=== PATIENT | male | born 1960 | race Caucasian/White ===

== ENCOUNTER 2019-10-24 14:48 | Outpatient (CLI) | payer BC, SELFPAY ==
--- NOTE | 2019-10-24 15:00 | CT_ITS ---
WS: [id number] CT ABDOMEN PELVIS TECHNIQUE: Noncontrast CT of the abdomen and pelvis with coronal and sagittal reformatted images. CLINICAL INFORMATION: GROSS HEMATURIA COMPARISON: None. DLP: 1963.[address] scans at [facility] use at least one of these dose optimization techniques: automat ed exposure control; mA and/or kV adjustment per patient size (includes targeted exams where dose is matched to clinical indication); or iterative reconstruction. FINDINGS: Hepatomegaly. Noncontrast liver measures 22 cm in craniocaudal dimension. Normal gastroesophageal mabel ction. Multiple enlarged lymph nodes in the upper abdomen along the celiac axis and tila hepatis. La rgest lymph nodes measure approximately 2.5 CM. Largest lymph node at the pancreatic head measuring 3 .5 x 1.7 cm. Mild pancreatic atrophy. Fluid-filled hydropic gallbladder. No pericholecystic fluid. Ca lcified granulomas left lung base. Slight bibasilar atelectasis. Mild splenomegaly measuring 16 cm. Recommend correlation for portal venous hypertension and correlati on with liver function tests. Adrenal glands are normal. Bilateral renal calculi larger on the right. Right renal pelvic/UPJ calcul us measuring 9 mm. Additional nonobstructing right calyceal calculus measuring 9 mm. Mild dilatation of the right renal pelvis. Right ureter is decompressed. No significant right hydronephrosis. No dist al right obstructing calculi. Tiny nonobstructing left calyceal tip calculi. Left ureter is decompressed. Normal caliber abdominal aorta. Aortic calcification. Mild prostate enlargement with calcification. Diverticulosis with mild t hickening involving the sigmoid colon suspicious for mild diverticulitis. No evidence of drainable ab scess or fluid collection. Recommend correlation with symptoms of infection. Bladder appears unremark able. No pelvic lymphadenopathy. CT/CT kidney stone [id number] IMPRESSION: 1. Mild diffuse thickening of the sigmoid colon suspicious for mild or early d iverticulitis. Recommend correlation for infection. No drainable abscess. 2. Right renal pelvic calculus measuring 9 mm with mild dilatation of the righ t renal pelvis. No significant right hydronephrosis. Right distal ureter is dec ompressed. 3. Additional nonobstructing right calyceal tip calculus measuring 9 mm. 4. No obstructing renal or ureteral calculi left kidney. 5. Mild enlargement of the prostate with calcification. Bladder appears unrema rkable. 6. Hepatomegaly and splenomegaly described above with multiple enlarged lymph nodes in the upper abdomen along the celiac axis and tila hepatis. These are n onspecific and may be reactive however malignancy is not excluded. Largest lymp h nodes measure up to 3.5 CM. Recommend correlation with liver enzymes.
== END 2019-10-24 14:49 | disposition home or self-care (01) ==
PROVIDERS: Family Provider Nurse Practitioner; PCP Nurse Practitioner; Visit Provider Nurse Practitioner
DX: N20.0 Calculus of kidney (principal); R31.0 Gross hematuria; N40.0 Benign prostatic hyperplasia without lower urinary tract symptoms; R16.0 Hepatomegaly, not elsewhere classified; R16.1 Splenomegaly, not elsewhere classified
CPT/HCPCS: 74176

== ENCOUNTER → 2020-02-06 13:40 | Outpatient (BNVA) | payer BC, SELFPAY | PROVIDERS: Family Provider Nurse Practitioner; PCP Nurse Practitioner; Visit Provider Nurse Practitioner | DX: S30.861A Insect bite (nonvenomous) of abdominal wall, initial encounter (principal); W57.XXXA Bitten or stung by nonvenomous insect and other nonvenomous arthropods, initial encounter; E11.65 Type 2 diabetes mellitus with hyperglycemia; R50.9 Fever, unspecified | CPT/HCPCS: 80053; 80061; 83036; 85025 ==

== ENCOUNTER → 2020-03-01 09:52 | Outpatient (BNVA) | payer BC, SELFPAY | PROVIDERS: Family Provider Nurse Practitioner; PCP Nurse Practitioner; Visit Provider Nurse Practitioner | DX: E11.65 Type 2 diabetes mellitus with hyperglycemia (principal); Z86.19 Personal history of other infectious and parasitic diseases | CPT/HCPCS: 85025 ==

== ENCOUNTER → 2020-03-23 10:06 | Outpatient (BNVA) | payer BC, SELFPAY | PROVIDERS: Family Provider Nurse Practitioner; PCP Nurse Practitioner; Visit Provider Nurse Practitioner Family | DX: M25.50 Pain in unspecified joint (principal); R11.2 Nausea with vomiting, unspecified; R19.7 Diarrhea, unspecified; R51 Headache; Z91.89 Other specified personal risk factors, not elsewhere classified | CPT/HCPCS: 80053; 85025; 86000; 86617; 86757; 87506 ==

== ENCOUNTER → 2020-03-27 08:38 | Outpatient (BNVA) | payer BC, SELFPAY | PROVIDERS: Family Provider Nurse Practitioner; PCP Nurse Practitioner; Visit Provider Nurse Practitioner Family | DX: R19.7 Diarrhea, unspecified (principal); R11.2 Nausea with vomiting, unspecified; E11.65 Type 2 diabetes mellitus with hyperglycemia; Z91.89 Other specified personal risk factors, not elsewhere classified | CPT/HCPCS: 80053; 85025 ==

== ENCOUNTER → 2020-04-10 15:20 | Outpatient (BNVA) | payer BC, SELFPAY | PROVIDERS: Family Provider Nurse Practitioner; PCP Nurse Practitioner; Visit Provider Nurse Practitioner | DX: N20.0 Calculus of kidney (principal) | CPT/HCPCS: 80053; 81001; 81002 ==

== ENCOUNTER 2020-04-13 07:45 | Outpatient (CLI) | payer BC, SELFPAY ==
--- NOTE | 2020-04-13 08:30 | XRR_ITS ---
PROCEDURE INFORMATION: Exam: XR Abdomen, 1 View Exam date and time: 04/13/2020 8:14 AM Age: 59 years old Clinical indication: Condition or disease; Kidney or ureter condition; Calculus (stone) in kidney; Prior surgery; Surgery date: 6+ months; Surgery type: Hernia; Patient HX: Check up on kidney. CT last done 10/24/19 TECHNIQUE: Imaging protocol: XR of the abdomen. Views: Frontal supine view of the abdomen. 1 View. COMPARISON: CT kidney stone [id number] 10/24/2019 3:58 PM FINDINGS: Gastrointestinal tract: Bowel gas pattern is nonspecific. No mass effect upon the bowel loops. Distal rectal gas. Scattered loops of air filled small bowel none of which are dilated. Organs: 3 mm calcification projects over the mid aspect of the left kidney Bones/joints: No acute process within the osseous structures of the spine or pelvis. Radiopaque density adjacent to the transverse process of L3 on the right. Possible ureteric calcification. Correlate. Soft tissues: No appreciable calcifications Soft tissue prominence projects over the right lower abdomen. Correlate with CT. XR/XR KUB [id number] IMPRESSION: 1. Bowel gas pattern is nonspecific. 2. Radiopaque density adjacent to the transverse process of L3 on the right. Possible ureteric calcification. Correlate. Consider CT. 3. Soft tissue prominence projects over the right lower abdomen. Correlate with CT.
== END 2020-04-13 07:46 | disposition home or self-care (01) ==
LOC: RAD 07:50
PROVIDERS: Family Provider Nurse Practitioner; PCP Nurse Practitioner; Visit Provider Urology
DX: N20.0 Calculus of kidney (principal)
CPT/HCPCS: 74018; 80053; 81001; 87077; 87086; 87186

== ENCOUNTER 2020-04-18 08:17 | Outpatient (CLI) | payer BC, SELFPAY ==
--- NOTE | 2020-04-18 08:00 | CT_ITS ---
WS: [id number] CT ABDOMEN PELVIS TECHNIQUE: Noncontrast CT of the abdomen and pelvis with coronal and sagittal reformatted images. CLINICAL INFORMATION: Stone COMPARISON: CT October 24, 2019 DLP: 2258.[address] scans at [facility] use at least one of these dose optimization techniques: automat ed exposure control; mA and/or kV adjustment per patient size (includes targeted exams where dose is matched to clinical indication); or iterative reconstruction. FINDINGS:Persistent obstructing right UPJ calculus measuring 9 mm. Adjacent tiny satellite calculus. Right perirenal subcapsular low-attenuation collection suspicious for subcapsular phlegmon/abscess ve rsus less likely subacute hematoma. No high attenuation blood products. Surrounding inflammatory stra nding. Flattening of the right kidney. Right distal ureter appears decompressed. Nonobstructing tiny left renal calyceal tip calculi. No hydronephrosis in the left kidney. Right subcapsular fluid collec tion measures 10.1 x 13.6 cm. Hepatomegaly unchanged. Normal gastroesophageal junction. Multiple enlarged lymph nodes in the upper abdomen along the celiac axis and tila hepatis unchanged. Fluid-filled distended hydropic gallbladde r unchanged. No pericholecystic fluid. Normal caliber abdominal aorta. Aortic calcification. Mild prostate enlargement with calcification. D iverticulosis with mild thickening involving the sigmoid colon persistent and unchanged. No evidence of drainable abscess or fluid collection. Recommend correlation with symptoms of infection. Bladder a ppears unremarkable. No pelvic lymphadenopathy. Notified Artur Bradford MD at 04/18/2020 9:[address]/CT kidney stone [id number] IMPRESSION: 1. Persistent obstructing right UPJ calculus measuring 9 mm. Adjacent tiny sat ellite calculus. Right perirenal subcapsular low-attenuation collection suspici ous for subcapsular phlegmon/abscess or less likely subacute hematoma. Surround ing inflammatory stranding. Flattening of the right kidney. Right subcapsular f luid collection measures 10.1 x 13.6 cm. 2. Right distal ureter appears decompressed. 3. Nonobstructing tiny left renal calyceal tip calculi. No hydronephrosis in the left kidney. 4. Persistent mild diffuse thickening of the sigmoid colon. Recommend correlat ion for mild or early diverticulitis. No abscess. 5. Mild enlargement of the prostate with calcification. Bladder appears unrema rkable. 6. Hepatomegaly and splenomegaly
== END 2020-04-18 08:18 | disposition home or self-care (01) ==
LOC: CT 08:18
PROVIDERS: Family Provider Nurse Practitioner; PCP Nurse Practitioner; Visit Provider Urology
DX: N20.0 Calculus of kidney (principal); R16.2 Hepatomegaly with splenomegaly, not elsewhere classified; N40.0 Benign prostatic hyperplasia without lower urinary tract symptoms
CPT/HCPCS: 74176; J2250; J2704

== ENCOUNTER 2020-04-18 09:53 | Inpatient (IN) | payer BC, SELFPAY ==
[2020-04-18] VITALS (11 sets, daily range): BP systolic 101–137; BP diastolic 64–87; PULSE 88–101; RESP 14–20; TEMP 36.8–38.1; O2SAT 92–95; BMI 42.5
--- NOTE | 2020-04-18 | CT_ITS ---
WS: [id number] CT-GUIDED RIGHT SUBCAPSULAR RENAL DRAIN PLACEMENT CLINICAL INFORMATION: POSSIBLE ABSCESS OF RIGHT KIDNEY COMPARISON: None. DLP: [id number] TECHNIQUE: The procedure including risk, benefits, and complications were discussed with the patient who agreed to proceed. Using sterile technique, the patient was prepped and draped in the usual steri le fashion. Patient was positioned prone and CT images were obtained through the abdomen. The right k idney was selected. After 1% lidocaine using fluoroscopic guidance, a 17-gauge coaxial needle was adv anced into the right subcapsular renal collection. Approximately 10 cc of bloody purulent material was aspirated. Fluid was sent for cultures. Subsequen tly track was dilated with 9 Czech dilator sheath. 8 Czech pigtail catheter was advanced into the s ubcapsular collection using Seldinger technique. No immediate applications. CT/CT drain kidney [id number] IMPRESSION: 1. Uncomplicated 8 Czech pigtail catheter drain placement into the right subc apsular renal collection. 2. 10 cc of purulent bloody fluid was aspirated and sent for cultures.
--- NOTE | 2020-04-18 10:08 | W.ED.FEMALGU ---
Documented by User: PRACHI Cerda 04/18/20 10:39 HPI - Female Genitourinary General: Chief complaint: General Medical Stated complaint: DIRECT ADMIT Time Seen by Provider: 04/18/20 10:04 Source: patient Mode of arrival: ambulatory Limitations: no limitations History of Present Illness: HPI Narrative: Patient is a very nice 59-year-old male who presents to ED today at the request of Dr. Bradford for a right ureter stone and possible renal abscess. Patient tells me he has had colicky right sided abdominal pains for 2 to 3 weeks now. He tells me he initially passed a small stone causing him to seek evaluation from Dr. Bradford. CT scan ordered this morning shows a 9mm UPJ stone with a large right-sided fluid collection suspicious for renal abscess less likely hematoma. Patient does report fevers of 100-102 over the past few weeks. He states he is having some urinary frequency but no other urinary symptoms. He denies flank pain. Again complains of some intermittent right sided mid to lower abdominal pains. He reports a mild cough that he attributes to sinus drainage. He denies chest pains or difficulty breathing. MD elicited complaint: other (kidney stone) Associated symptoms: Reports abdominal pain; Deny headache(s), nausea or syncope Review of Systems Const: Reports: fever(s) (up to 102) and chills; Denies: body aches, change in appetite, change in weight, fatigue or malaise Card: Denies: chest pain, palpitations, irregular heart rhythm, edema, lightheadedness, syncope or pre-syncope Resp: Reports: productive cough and chest congestion; Denies: dyspnea, non-productive cough or hemoptysis GI: Reports: abdominal pain; Denies: nausea, vomiting or diarrhea : Reports: urinary frequency; Denies: flank pain, urinary urgency, urinary hesitancy, genital pain, genital lesions, testicular mass or scrotal swelling Musc: Denies: neck pain or back pain Skin/Breast: Denies: rash Neuro: Denies: headache(s), numbness in extremities, weakness in extremities or sensory changes [facility] ED PFSH: Medical History (Updated 04/18/20 @ 12:13 by Sarah Kunz DO) Controlled diabetes mellitus with hyperglycemia, without long-term current use of insulin Diverticulosis Glaucoma H/O Clostridium difficile infection H/O nephrolithotomy with removal of calculi History of colon polyps History of [place] spotted fever Hypertriglyceridemia Internal hemorrhoids Surgical History H/O circumcision H/O inguinal hernia repair H/O lithotripsy Status post colonoscopy with polypectomy Family History Other Cancer Diabetes Denies family history of Anesthesia complication Bleeding disorder Social History Smoking and tobacco status: never smoked Second hand smoke exposure: No Smoking risk assessment/counseling performed?: No Alcohol intake: never Desire information about alcohol rehabilitation?: No Counseling given: No Desire information about substance/drug rehabilitation?: No Counseling given: No Adopted: No Caregiver/support person: No Lives independently: Yes Household members: spouse Housing: House Marital status: service: No Current occupational status: employed History of recent travel: No Current gender identity: Male Physical Exam Const: COMMON NORMALS: no acute distress, patient oriented x3, no limitations and alert NUTRITIONAL APPEARANCE: obese morbidly obese ORIENTATION/CONSCIOUSNESS: Yes oriented to person, Yes oriented to place and Yes oriented to time Resp: COMMON NORMALS: normal respiratory effort and clear to auscultation bilaterally AUSCULTATION: clear to auscultation bilaterally Cardio: COMMON NORMALS: regular rate and regular rhythm RATE: regular rate RHYTHM: regular rhythm GI: COMMON NORMALS: Normal to inspection, nondistended, normoactive bowel sounds present, Soft to palpation, No hepatosplenomegaly present and no masses PALPATION: Yes Soft to palpation, Yes Tenderness to palpation present (GI) (mild R middle/lower abdominal pain) and Yes No hepatosplenomegaly present : COMMON NORMALS: Yes no CVA tenderness BLADDER/KIDNEY EXAM: Yes no CVA tenderness Back/Pelvis: COMMON NORMALS: no CVA tenderness Extremity: COMMON NORMALS: normal to inspection Neuro: TIMBO COMA SCALE: document GCS findings Timbo coma scale eye opening: Spontaneous Timbo coma scale verbal response: Orientated Timbo coma scale motor response: Obey commands Timbo coma scale total score: 15 COMMON NORMALS: patient oriented x3, moves all extremities, no focal motor deficits and gait normal SENSORIUM/ORIENTATION: Yes alert, Yes oriented to person, Yes oriented to place and Yes oriented to time Skin: COMMON NORMALS: no rashes or lesions noted GENERAL SKIN EXAM: no rashes or lesions noted Course Vital Signs: Vital signs: Vital Signs Temperature 99.1 F 04/18/20 10:09 Pulse Rate 92 04/18/20 16:28 Respiratory Rate 17 04/18/20 16:28 Blood Pressure 118/85 04/18/20 13:11 Pulse Oximetry 93 04/18/20 16:28 MDM - Female MDM Narrative: Medical decision making narrative: Patient was initially seen and evaluated by myself. Labs have been ordered. Dr. Rodrigues will assume care of patient as he will be a direct admit per Dr. Bradford. Lab Data: Labs: Lab Results 04/18/20 04/18/20 04/18/20 Range/Units 10:20 10:28 10:30 WBC 15.2 H (4.0-10.0) 10^3/ uL RBC 4.81 (4.1-5.3) 10^6/u L Hgb 14.6 (11.7-16.6) g/dL Hct 45.5 (42.0-52.0) % MCV 94.6 H (80-94) fL MCH 30.4 (28.0-34.0) pg MCHC 32.1 (30.0-36.0) g/dL RDW 13.2 (12.1-15.1) % Plt Count 350 (130-400) 10^3/c mm MPV 10.2 (7.4-10.4) fL Neut % (Auto) 75.5 % Lymph % (Auto) 12.9 % [place] % (Auto) 9.9 % Eos % (Auto) 0.3 % Baso % (Auto) 0.5 % Neut # (Auto) 11.5 H (1.8-7.7) 10^3/u L Lymph # (Auto) 2.0 (0.8-4.8) 10^3/u L [place] # (Auto) 1.5 H (0.2-0.9) 10^3/u L Eos # (Auto) 0.1 (0.0-0.8) 10^3/u L Baso # (Auto) 0.1 (0.0-0.1) 10^3/u L Nucleated RBC % (a uto) 0 % Nucleated RBCs # 0.0 /100WBC Sodium (136-145) mmol/L Potassium (3.5-5.1) mmol/L Chloride (98-107) mmol/L Carbon Dioxide (22-29) mmol/L Anion Gap (5-19) BUN (6-20) mg/dL Creatinine (0.7-1.2) mg/dL GFR Calculation (90-130) mL/min Glucose (65-115) mg/dL Calculated Osmolal ity (285-295) mOsm/k g Lactate (0.5-2.2) mmol/L Calcium (8.5-10.5) mg/dL Total Bilirubin (0.15-1.2) mg/dL AST (0-40) U/L ALT (0-41) U/L Alkaline Phosphata se (40-130) IU/L Total Protein (6.6-8.7) g/dL Albumin (3.5-5.2) g/dL Globulin (1.3-4.6) g/dL Urine Color Cancelled [place] Urine Appearance Cancelled Clear Urine pH Cancelled 5.0 Ur Specific Gravit y Cancelled 1.015 Urine Protein Cancelled Trace Urine Glucose (UA) Cancelled Norm Urine Ketones Cancelled Negative Urine Blood Cancelled 2+ H Urine Nitrate Cancelled Negative Urine Bilirubin Cancelled Neg Prot Sulfosalicyli c Acd Cancelled Urine Urobilinogen Cancelled 1 H Ur Leukocyte Venita ase Cancelled 1+ H Urine RBC 0-4 H (0-2) /hpf Urine WBC 25-40 H (0-5) /hpf Ur Squamous Epith Cells 5-10 H (0-5) Amorphous Sediment Not Reportable Urine Bacteria 1+ H (NONE) Urine Mucus 1+ 04/18/20 04/18/20 Range/Units 10:30 10:30 WBC (4.0-10.0) 10^3/ uL RBC (4.1-5.3) 10^6/u L Hgb (11.7-16.6) g/dL Hct (42.0-52.0) % MCV (80-94) fL MCH (28.0-34.0) pg MCHC (30.0-36.0) g/dL RDW (12.1-15.1) % Plt Count (130-400) 10^3/c mm MPV (7.4-10.4) fL Neut % (Auto) % Lymph % (Auto) % [place] % (Auto) % Eos % (Auto) % Baso % (Auto) % Neut # (Auto) (1.8-7.7) 10^3/u L Lymph # (Auto) (0.8-4.8) 10^3/u L [place] # (Auto) (0.2-0.9) 10^3/u L Eos # (Auto) (0.0-0.8) 10^3/u L Baso # (Auto) (0.0-0.1) 10^3/u L Nucleated RBC % (a uto) % Nucleated RBCs # /100WBC Sodium 129 L (136-145) mmol/L Potassium 4.6 (3.5-5.1) mmol/L Chloride 94 L (98-107) mmol/L Carbon Dioxide 21 L (22-29) mmol/L Anion Gap 18.6 (5-19) BUN 22 H (6-20) mg/dL Creatinine 1.2 (0.7-1.2) mg/dL GFR Calculation 62.0 L (90-130) mL/min Glucose 149 H (65-115) mg/dL Calculated Osmolal ity 267 L (285-295) mOsm/k g Lactate 2.3 H (0.5-2.2) mmol/L Calcium 9.0 (8.5-10.5) mg/dL Total Bilirubin 1.3 H (0.15-1.2) mg/dL AST 28 (0-40) U/L ALT 12 (0-41) U/L Alkaline Phosphata se 118 (40-130) IU/L Total Protein 8.7 (6.6-8.7) g/dL Albumin 2.9 L (3.5-5.2) g/dL Globulin 5.8 H (1.3-4.6) g/dL Urine Color Urine Appearance Urine pH Ur Specific Gravit y Urine Protein Urine Glucose (UA) Urine Ketones Urine Blood Urine Nitrate Urine Bilirubin Prot Sulfosalicyli c Acd Urine Urobilinogen Ur Leukocyte Venita ase Urine RBC (0-2) /hpf Urine WBC (0-5) /hpf Ur Squamous Epith Cells (0-5) Amorphous Sediment Urine Bacteria (NONE) Urine Mucus Imaging Data: CT renal stone: Radiologist's impression: CT/CT kidney stone [id number] IMPRESSION: 1. Persistent obstructing right UPJ calculus measuring 9 mm. Adjacent tiny satellite calculus. Right perirenal subcapsular low-attenuation collection suspicious for subcapsular phlegmon/abscess or less likely subacute hematoma. Surrounding inflammatory stranding. Flattening of the right kidney. Right subcapsular fluid collection measures 10.1 x 13.6 cm. 2. Right distal ureter appears decompressed. 3. Nonobstructing tiny left renal calyceal tip calculi. No hydronephrosis in the left kidney. 4. Persistent mild diffuse thickening of the sigmoid colon. Recommend correlation for mild or early diverticulitis. No abscess. 5. Mild enlargement of the prostate with calcification. Bladder appears unremarkable. 6. Hepatomegaly and splenomegaly Discharge Plan Discharge Patient Disposition: Admitted As Inpatient Admit Provider: Sarah Kunz Clinical Impression: Obstruction of right ureteropelvic junction (UPJ), Renal abscess, right Condition: Stable Referrals: Zhen Sunshine, NOLANC [Primary Care Provider] - Discharge Date/Time: 04/18/20 13:20 Coding Level of Care Code ED Food Concession Manager for Chg Fwd Exam Comprehensive Documented by User: Humphrey Rodrigues DO 04/18/20 16:47 HPI - Female Genitourinary General: Chief complaint: General Medical Stated complaint: DIRECT ADMIT Time Seen by Provider: 04/18/20 10:04 History of Present Illness: HPI Narrative: Patient was sent over the emergency room as a direct admission for Dr. Bradford. He has a known renal abscess the concern was for last 3 to 4 weeks he had a fever and cough and sinus drainage. He has imaging regarding the abscess and the concern is whether or not he should be swabbed for COVID. He has been reporting fevers up to 101-2 for the last several weeks he has been following with Dr. Bradford has a known right ureteral stone they are concerned he has an abscess there is CT this morning showed very large stone with abscess formation. His biggest intermittent abdominal pains. He has not had a real productive cough no one else at home has been sick. Is not traveled anywhere had any known positive COVID exposures. Associated symptoms: Reports abdominal pain; Deny nausea Review of Systems Const: Reports: fever(s), chills and body aches; Denies: change in appetite, fatigue or malaise ENMT: Denies: throat pain, ear or mastoid pain, nasal discharge or nasal congestion Card: Denies: chest pain, edema, dyspnea on exertion or orthopnea Resp: Denies: dyspnea, productive cough or non-productive cough GI: Reports: abdominal pain; Denies: nausea, vomiting, hematemesis, coffee ground emesis, diarrhea, constipation, bloating, hematochezia or melena : Denies: flank pain, dysuria, urinary frequency or urinary urgency Skin/Breast: Denies: rash or pruritus PFSH ED PFSH: Medical History (Updated 04/18/20 @ 12:13 by Sarah Kunz DO) Controlled diabetes mellitus with hyperglycemia, without long-term current use of insulin Diverticulosis Glaucoma H/O Clostridium difficile infection H/O nephrolithotomy with removal of calculi History of colon polyps History of [place] spotted fever Hypertriglyceridemia Internal hemorrhoids Surgical History H/O circumcision H/O inguinal hernia repair H/O lithotripsy Status post colonoscopy with polypectomy Family History Other Cancer Diabetes Denies family history of Anesthesia complication Bleeding disorder Social History Smoking and tobacco status: never smoked Second hand smoke exposure: No Smoking risk assessment/counseling performed?: No Alcohol intake: never Desire information about alcohol rehabilitation?: No Counseling given: No Desire information about substance/drug rehabilitation?: No Counseling given: No Adopted: No Caregiver/support person: No Lives independently: Yes Household members: spouse Housing: House Marital status: service: No Current occupational status: employed History of recent travel: No Current gender identity: Male Physical Exam Const: COMMON NORMALS: no acute distress GENERAL APPEARANCE: cooperative and comfortable ORIENTATION/CONSCIOUSNESS: Yes awake, Yes oriented to person, Yes oriented to place and Yes oriented to time HENMT: COMMON NORMALS: normocephalic, atraumatic, hearing grossly normal bilaterally, external ears normal, EAC's normal, TM's normal bilaterally, Normal nasal mucous membranes and turbinates present, moist oral mucous membranes and oropharynx normal HEAD & SCALP: normocephalic and atraumatic NOSE: Normal nasal mucous membranes and turbinates present EXTERNAL EAR: Yes external ears normal EXTERNAL AUDITORY CANAL: EAC's normal TYMPANIC MEMBRANE: TM's normal bilaterally Eye: COMMON NORMALS: Equal, round and reactive pupils present, EOMs intact bilaterally, conjunctivae normal and no scleral icterus CONJUNCTIVA: Yes conjunctivae normal PUPIL: Yes Equal, round and reactive pupils present Neck/C-Spine: COMMON NORMALS: full ROM, no lymphadenopathy, supple and no JVD Lymph: LYMPHATIC: no lymphadenopathy noted and no lymphedema noted Resp: COMMON NORMALS: normal respiratory effort, No retractions, No use of accessory muscles and clear to auscultation bilaterally AUSCULTATION: clear to auscultation bilaterally Cardio: COMMON NORMALS: no JVD, regular rate, regular rhythm and No murmurs present (Cardio) RATE: regular rate RHYTHM: regular rhythm GI: COMMON NORMALS: Soft to palpation and No hepatosplenomegaly present AUSCULTATION: Yes normoactive bowel sounds PALPATION: Yes Soft to palpation, No Tenderness to palpation present (GI), No Guarding due to palpation present (GI) and Yes No hepatosplenomegaly present Extremity: COMMON NORMALS: normal to inspection, capillary refill normal, no clubbing, cyanosis or edema, no calf tenderness and no pedal edema Neuro: SENSORIUM/ORIENTATION: Yes oriented to person, Yes oriented to place and Yes oriented to time Skin: COMMON NORMALS: no rashes or lesions noted GENERAL SKIN EXAM: no rashes or lesions noted Course Vital Signs: Vital signs: Vital Signs Temperature 99.1 F 04/18/20 10:09 Pulse Rate 92 04/18/20 16:28 Respiratory Rate 17 04/18/20 16:28 Blood Pressure 118/85 04/18/20 13:11 Pulse Oximetry 93 04/18/20 16:28 MDM - Female MDM Narrative: Medical decision making narrative: Discussed with Dr. Kunz and Dr. Bradford will go ahead and admit Dr. Bradford to choose antibiotics. At this point Dr. Kunz and I have discussed that both of us feel the patient does not need to have COVID screening based on his history and exam. Lab Data: Labs: Lab Results 04/18/20 04/18/20 04/18/20 Range/Units 10:20 10:28 10:30 WBC 15.2 H (4.0-10.0) 10^3/ uL RBC 4.81 (4.1-5.3) 10^6/u L Hgb 14.6 (11.7-16.6) g/dL Hct 45.5 (42.0-52.0) % MCV 94.6 H (80-94) fL MCH 30.4 (28.0-34.0) pg MCHC 32.1 (30.0-36.0) g/dL RDW 13.2 (12.1-15.1) % Plt Count 350 (130-400) 10^3/c mm MPV 10.2 (7.4-10.4) fL Neut % (Auto) 75.5 % Lymph % (Auto) 12.9 % [place] % (Auto) 9.9 % Eos % (Auto) 0.3 % Baso % (Auto) 0.5 % Neut # (Auto) 11.5 H (1.8-7.7) 10^3/u L Lymph # (Auto) 2.0 (0.8-4.8) 10^3/u L [place] # (Auto) 1.5 H (0.2-0.9) 10^3/u L Eos # (Auto) 0.1 (0.0-0.8) 10^3/u L Baso # (Auto) 0.1 (0.0-0.1) 10^3/u L Nucleated RBC % (a uto) 0 % Nucleated RBCs # 0.0 /100WBC Sodium (136-145) mmol/L Potassium (3.5-5.1) mmol/L Chloride (98-107) mmol/L Carbon Dioxide (22-29) mmol/L Anion Gap (5-19) BUN (6-20) mg/dL Creatinine (0.7-1.2) mg/dL GFR Calculation (90-130) mL/min Glucose (65-115) mg/dL Calculated Osmolal ity (285-295) mOsm/k g Lactate (0.5-2.2) mmol/L Calcium (8.5-10.5) mg/dL Total Bilirubin (0.15-1.2) mg/dL AST (0-40) U/L ALT (0-41) U/L Alkaline Phosphata se (40-130) IU/L Total Protein (6.6-8.7) g/dL Albumin (3.5-5.2) g/dL Globulin (1.3-4.6) g/dL Urine Color Cancelled [place] Urine Appearance Cancelled Clear Urine pH Cancelled 5.0 Ur Specific Gravit y Cancelled 1.015 Urine Protein Cancelled Trace Urine Glucose (UA) Cancelled Norm Urine Ketones Cancelled Negative Urine Blood Cancelled 2+ H Urine Nitrate Cancelled Negative Urine Bilirubin Cancelled Neg Prot Sulfosalicyli c Acd Cancelled Urine Urobilinogen Cancelled 1 H Ur Leukocyte Venita ase Cancelled 1+ H Urine RBC 0-4 H (0-2) /hpf Urine WBC 25-40 H (0-5) /hpf Ur Squamous Epith Cells 5-10 H (0-5) Amorphous Sediment Not Reportable Urine Bacteria 1+ H (NONE) Urine Mucus 1+ 04/18/20 04/18/20 Range/Units 10:30 10:30 WBC (4.0-10.0) 10^3/ uL RBC (4.1-5.3) 10^6/u L Hgb (11.7-16.6) g/dL Hct (42.0-52.0) % MCV (80-94) fL MCH (28.0-34.0) pg MCHC (30.0-36.0) g/dL RDW (12.1-15.1) % Plt Count (130-400) 10^3/c mm MPV (7.4-10.4) fL Neut % (Auto) % Lymph % (Auto) % [place] % (Auto) % Eos % (Auto) % Baso % (Auto) % Neut # (Auto) (1.8-7.7) 10^3/u L Lymph # (Auto) (0.8-4.8) 10^3/u L [place] # (Auto) (0.2-0.9) 10^3/u L Eos # (Auto) (0.0-0.8) 10^3/u L Baso # (Auto) (0.0-0.1) 10^3/u L Nucleated RBC % (a uto) % Nucleated RBCs # /100WBC Sodium 129 L (136-145) mmol/L Potassium 4.6 (3.5-5.1) mmol/L Chloride 94 L (98-107) mmol/L Carbon Dioxide 21 L (22-29) mmol/L Anion Gap 18.6 (5-19) BUN 22 H (6-20) mg/dL Creatinine 1.2 (0.7-1.2) mg/dL GFR Calculation 62.0 L (90-130) mL/min Glucose 149 H (65-115) mg/dL Calculated Osmolal ity 267 L (285-295) mOsm/k g Lactate 2.3 H (0.5-2.2) mmol/L Calcium 9.0 (8.5-10.5) mg/dL Total Bilirubin 1.3 H (0.15-1.2) mg/dL AST 28 (0-40) U/L ALT 12 (0-41) U/L Alkaline Phosphata se 118 (40-130) IU/L Total Protein 8.7 (6.6-8.7) g/dL Albumin 2.9 L (3.5-5.2) g/dL Globulin 5.8 H (1.3-4.6) g/dL Urine Color Urine Appearance Urine pH Ur Specific Gravit y Urine Protein Urine Glucose (UA) Urine Ketones Urine Blood Urine Nitrate Urine Bilirubin Prot Sulfosalicyli c Acd Urine Urobilinogen Ur Leukocyte Venita ase Urine RBC (0-2) /hpf Urine WBC (0-5) /hpf Ur Squamous Epith Cells (0-5) Amorphous Sediment Urine Bacteria (NONE) Urine Mucus Discharge Plan Discharge Patient Disposition: Admitted As Inpatient Admit Provider: Sarah Kunz Clinical Impression: Obstruction of right ureteropelvic junction (UPJ), Renal abscess, right Condition: Stable Referrals: Zhen Sunshine, PLAN COORDINATOR-C [Primary Care Provider] - Discharge Date/Time: 04/18/20 13:20 Coding Level of Care Code ED Food Concession Manager for Chg Fwd Exam Comprehensive
--- NOTE | 2020-04-18 10:22 | XRR_ITS ---
PROCEDURE INFORMATION: Exam: XR Chest, 1 View Exam date and time: 04/18/2020 10:37 AM Age: 59 years old Clinical indication: Dyspnea/cough TECHNIQUE: Imaging protocol: XR of the chest Views: 1 view. COMPARISON: No relevant prior studies available. FINDINGS: Lungs: No lung consolidation or pulmonary edema. Pleural space: No pleural effusion or pneumothorax. Heart/Mediastinum: The cardiac silhouette is not enlarged. The mediastinal contours are normal. Vasculature: The thoracic aorta is tortuous. Bones/joints: No acute osseous abnormality. XR/XR chest 1V portable [id number] IMPRESSION: No acute abnormality.
[2020-04-18 10:39] LABS: Basophils # 0.1 10^3/uL (0.0-0.1); Basophils % 0.5 %; Eosinophils # 0.1 10^3/uL (0.0-0.8); Eosinophils % 0.3 %; Hematocrit 45.5 % (42.0-52.0); Hemoglobin 14.6 g/dL (11.7-16.6); Lymphocytes % 12.9 %; Mean Corpuscular HGB Conc 32.1 g/dL (30.0-36.0); Mean Corpuscular Hemoglobin 30.4 pg (28.0-34.0); Mean Corpuscular Volume 94.6 fL (80-94); Mean Platelet Volume 10.2 fL (7.4-10.4); Monocytes # 1.5 10^3/uL (0.2-0.9); Monocytes % 9.9 %; Neutrophils # 11.5 10^3/uL (1.8-7.7); Neutrophils % 75.5 %; Nucleated Red Blood Cells % 0 %; Platelet Count 350 10^3/cmm (130-400); Red Blood Count 4.81 10^6/uL (4.1-5.3); Red Cell Distribution Width 13.2 % (12.1-15.1); White Blood Count 15.2 10^3/uL (4.0-10.0)
[2020-04-18 10:52] LABS: Alanine Aminotransferase 12 U/L (0-41); Albumin Level 2.9 g/dL (3.5-5.2); Alkaline Phosphatase 118 IU/L (40-130); Anion Gap 18.6 (5-19); Aspartate Amino Transferase 28 U/L (0-40); Blood Urea Nitrogen 22 mg/dL (6-20); Carbon Dioxide 21 mmol/L (22-29); Chloride 94 mmol/L (98-107); Globulin 5.8 g/dL (1.3-4.6); Glucose 149 mg/dL (65-115); Osmolality Calculated 267 mOsm/kg (285-295); Potassium 4.6 mmol/L (3.5-5.1); Sodium 129 mmol/L (136-145); Total Bilirubin 1.3 mg/dL (0.15-1.2); Total Protein 8.7 g/dL (6.6-8.7)
[2020-04-18 10:53] LABS: Lactate (Lactic Acid level) 2.3 mmol/L (0.5-2.2)
[2020-04-18 11:18] LABS: Add Urine Culture? Yes; Add Urine Microscopic? YES; Bacteria Urine 1+; Bilirubin Urine Neg (NEGATIVE); Blood Urine 2+ (Negative); Glucose Urine UA Norm (Normal); Ketones Urine Negative (Negative); Leukocyte Esterase Urine 1+ (Negative); Mucus Urine 1+; Nitrate Urine Negative (Negative); Protein Urine Trace (Negative); RBC Urine 0-4 /hpf (0-2); Specific Gravity, Urine 1.015 (1.005-1.030); Urine Appearance Clear (CLEAR); Urine Color Orange (Yellow); Urobilinogen Urine 1 mg/dL (Negative); WBC Urine 25-40 /hpf (0-5)
--- NOTE | 2020-04-18 12:06 | PM.HP ---
Providers/Chief Complaint Admitting Physician: Sarah Kunz DO Primary Care Provider: GISELE Gupta Chief Complaint: DIRECT ADMIT History of Present Illness Olegario Ortiz is a 59 year old male with a past medical history of diabetes and history of nephrolithiasis as well as hypertension that presented to the emergency department from urology office due to concern for fever and concern for right perinephric fluid collection. Patient reports having been sick off and on for the past 4 weeks. He stated that he had a tick exposure at that time due to concern for tick fever he was prescribed doxycycline he completed the 10-day course and reported that he began to feel somewhat better. He reported that over the past 2 weeks he has began to gradually decline. Stated that 2 weeks ago on a Thursday he passed a kidney stone had some hematuria and dysuria at that time but that is since improved. He continues to have hematuria. Patient reports continued fevers daily of 101-102 every afternoon. He denies any exposure to anyone with COVID-19, denies any public exposures and wears a mask in public every day. He reports a chronic cough and chronic postnasal drainage that is been worse with fever, denies any shortness of breath, no myalgias. Patient was seen and evaluated in the emergency department and admitted to the hospital for further evaluation and treatment. Review of Systems Const: Reports: fever(s) and chills Eyes: Reports: change in vision (Chronic, due to detached retina) ENMT: Reports: other (Postnasal drainage); Denies: nasal congestion Card: Denies: chest pain, palpitations or edema Resp: Reports: other (Chronic nonproductive cough); Denies: dyspnea, productive cough or hemoptysis GI: Reports: nausea and vomiting; Denies: abdominal pain, diarrhea, constipation, hematochezia or melena : Reports: hematuria; Denies: dysuria Musc: Denies: extremity pain or muscle cramps Skin/Breast: Denies: rash or new lesions Neuro: Denies: headache(s) or dizziness Psych: Denies: anxiety or depression Endo: Denies: polyuria or hot flashes Nikos/Lymph: Denies: easy bruising or easy bleeding Medications/Allergies Home Medications Medication Instructions Recorded Confirmed Last Taken Type lactobacillus combination no.8 3 3,000 mmu cells PO DAILY 04/13/20 04/18/20 04/18/20 History billion cell capsule prednisolone acetate 0.12 % eye 1 drop OPHTHALMIC (EYE) DAILY 04/13/20 04/18/20 04/18/20 History drops,suspension dulaglutide [Trulicity] 1.5 mg SUBCUT Q7D 04/18/20 04/18/20 04/18/20 History lisinopril 10 mg PO DAILY 04/18/20 04/18/20 04/18/20 History olive leaf extract 250 mg PO DAILY 04/18/20 04/18/20 04/18/20 History Allergies Allergy/AdvReac Type Severity Reaction Status Date / Time metformin Allergy diarrhea Verified 04/18/20 10:10 PFSH Acute PFSH: Medical History (Updated 04/18/20 @ 12:13 by Sarah Kunz DO) Controlled diabetes mellitus with hyperglycemia, without long-term current use of insulin Diverticulosis Glaucoma H/O Clostridium difficile infection H/O nephrolithotomy with removal of calculi History of colon polyps History of [place] spotted fever Hypertriglyceridemia Internal hemorrhoids Surgical History H/O circumcision H/O inguinal hernia repair H/O lithotripsy Status post colonoscopy with polypectomy Family History Other Cancer Diabetes Denies family history of Anesthesia complication Bleeding disorder Social History Smoking and tobacco status: never smoked Second hand smoke exposure: No Smoking risk assessment/counseling performed?: No Alcohol intake: never Desire information about alcohol rehabilitation?: No Counseling given: No Desire information about substance/drug rehabilitation?: No Counseling given: No Adopted: No Caregiver/support person: No Lives independently: Yes Household members: spouse Housing: House Marital status: service: No Current occupational status: employed History of recent travel: No Current gender identity: Male Vitals/I&O/Wt Last Vital Signs Temp 99.1 F 04/18/20 10:09 Pulse 99 04/18/20 10:09 Resp 20 H 04/18/20 10:09 BP 127/86 04/18/20 10:09 Pulse Ox 94 04/18/20 10:31 Weight last 48 hrs Weight 158.757 kg Physical Exam Const: COMMON NORMALS: patient oriented x3 and alert GENERAL APPEARANCE: cooperative and ill appearing ORIENTATION/CONSCIOUSNESS: Yes awake, Yes oriented to person, Yes oriented to place and Yes oriented to time HENMT: COMMON NORMALS: normocephalic and atraumatic HEAD & SCALP: normocephalic and atraumatic Eye: COMMON NORMALS: Equal, round and reactive pupils present PUPIL: Yes Equal, round and reactive pupils present Neck/C-Spine: COMMON NORMALS: supple GENERAL: Yes normal visual inspection Resp: COMMON NORMALS: normal respiratory effort and clear to auscultation bilaterally EFFORT & INSPECTION: Yes able to speak in complete sentences AUSCULTATION: clear to auscultation bilaterally, no rhonchi and no wheezes Cardio: COMMON NORMALS: regular rhythm and No murmurs present (Cardio) RATE: tachycardic RHYTHM: regular rhythm GI: COMMON NORMALS: Soft to palpation and non-tender INSPECTION: No abdominal distension AUSCULTATION: Yes normoactive bowel sounds PALPATION: Yes Soft to palpation : COMMON NORMALS: Yes no CVA tenderness BLADDER/KIDNEY EXAM: Yes no CVA tenderness Back/Pelvis: COMMON NORMALS: no CVA tenderness Extremity: COMMON NORMALS: no calf tenderness NARRATIVE EXTREMITY EXAM: Chronic nonpitting edema in the lower extremities bilaterally, negative Homans sign bilaterally, chronic venous stasis in the lower extremities bilaterally Neuro: COMMON NORMALS: patient oriented x3, CN's II-XII intact bilaterally, moves all extremities and no focal motor deficits SENSORIUM/ORIENTATION: Yes alert, Yes oriented to person, Yes oriented to place and Yes oriented to time SPEECH: speech normal Psych: COMMON NORMALS: mental status grossly normal and cooperative Skin: COMMON NORMALS: no rashes or lesions noted GENERAL SKIN EXAM: no rashes or lesions noted Data : 04/18/20 10:30 04/18/20 10:30 Micro: Microbiology 04/18/20 10:25 Blood Culture - Preliminary Blood SPECIMEN COLLECTED 04/18/20 10:30 Blood Culture - Preliminary Blood SPECIMEN COLLECTED A&P Assessment and plan (1) Renal abscess, right: CT scan performed today showing right subcapsular fluid collection of 10 x 13 cm with obstructing right UPJ calculus measuring 9 mm Question of abscess versus hematoma Start broad spectrum antibiotics at this time with Vanc and Zosyn Urine culture and blood culture ordered and pending Dr. Bradford consulted, appreciate recommendations and assistance in patient's care. Status: Acute (2) Right ureteral calculus: Right UPJ calculus measuring 9 mm We will follow-up with recommendations from Dr. Bradford Status: Acute (3) Hypertriglyceridemia: Status: Chronic (4) Controlled diabetes mellitus with hyperglycemia, without long-term current use of insulin: Patient is on weekly Trulicity injection Placed on sliding scale insulin as needed Status: Chronic Additional A&P Information Chronic cough: Likely secondary to lisinopril and postnasal drainage, chest x-ray negative at this time, no exposure for COVID-19, fever believed to be secondary to #1 we will hold off on COVID testing at this time Hypertension: Holding lisinopril at this time due to soft blood pressures with concern for sepsis Sepsis secondary to concern for perinephric abscess on the right: Continue with broad-spectrum antibiotics, continue with IV fluids, blood cultures ordered and pending. Urine culture pending. Imaging with question of mild diverticulitis however patient has no diarrhea or abdominal pain, likely his nausea and vomiting is secondary to perinephric process, will keep n.p.o. at this time and continue close monitoring. DVT prophylaxis: SCDs, no pharmacologic prophylaxis due to concern for anticipated surgery Diet: NPO due to anticipated surgery CODE STATUS: Full code Attestations Medical Necessity Statement*: Patient requires hospitalization due to concern for sepsis with right perinephric lesion with concern for abscess versus hematoma. Expected stay greater than 2 midnights Coding Level of Care Code Acute Amusement Or Recreation Card Checker for [facility] Fwd Exam Comprehensive Diagnoses Renal abscess, right N15.1 Right ureteral calculus N20.1 Hypertriglyceridemia E78.1 Controlled diabetes mellitus with hyperglycemia, without long-term current use of insulin E11.65
--- NOTE | 2020-04-18 13:38 | CT_ITS ---
WS: [id number] CT ABDOMEN PELVIS TECHNIQUE: Contrast-enhanced CT of the abdomen and pelvis with coronal and sagittal reformatted image s. CLINICAL INFORMATION: Renal mass, suspicious for possible abscess COMPARISON: Noncontrast CT April 18, 2020 DLP: 4221.[address] scans at [facility] use at least one of these dose optimization techniques: automat ed exposure control; mA and/or kV adjustment per patient size (includes targeted exams where dose is matched to clinical indication); or iterative reconstruction. FINDINGS: Again seen is the large low-attenuation right subcapsular renal fluid collection. This demonstrates p eripheral enhancement with mild surrounding inflammatory stranding. No significant internal enhanceme nt. No associated air or increased attenuation blood products. Persistent obstructing calculi at the right UPJ as previously described. Kidney is compressed mediall y unchanged from earlier today. Normal renal parenchymal enhancement. Although no excretion on the de layed imaging. Normal left renal parenchymal enhancement. Normal left ureteral excretion. Hepatomegaly with diffuse fatty infiltration of the liver. Hydropic gallbladder is unchanged. Splenomegaly. No other changes fr om earlier today. CT/CT abdomen pelvis w con* [id number] IMPRESSION: 1. Again seen is the low-attenuation right subcapsular fluid collection with p eripheral enhancement. Differential considerations are unchanged and include moody bcapsular abscess or hematoma. This is unchanged in size measuring 10.1 x 13.6 cm 2. Normal right renal parenchymal enhancement with compression of the right ki dney. No significant excretion on the delayed imaging. 3. Normal left renal excretion. 4. Hepatomegaly with diffuse fatty infiltration. 5. Otherwise no changes from earlier today.
--- NOTE | 2020-04-18 14:32 | P.ANESASSM_ITS ---
Pre-Anesthetic Assessment Pre-Anesthetic Assessment: Height/Weight: Height 1.93 m Weight 158.757 kg Temp Pulse Resp BP Pulse Ox 99.1 F 101 H 20 H 118/85 94 04/18/20 10:09 04/18/20 13:11 04/18/20 10:09 04/18/20 13:11 04/18/20 13:11 Preop Diagnosis: Kidney abscess Proposed Procedure: CT-Guided kidney drain Familial anesthetic complications: Sleeppy after anesthesia Was Beta Grisel taken within 24 hours: N/A Last intake: NPO > 8 hrs Social: Social History: No alcohol and No tobacco Exam: Pre-Anes Outpt Exam: alert, oriented x 3, clear to auscultation bilaterally and regular rate & rhythm Airway: Cervical ROM: WNL MP: 3 Dentition: Full Pulmonary: Comments: denies LURDES CV/HEM: CV/HEM: HTN Metabolic: Metabolic: DM and Morbid obesity Anesthetic Plan: ASA status: 2E Anesthesia: MAC Risk of > 500 ml blood loss (7ml/kg in children): No PFSH Anesthesia PFSH: Medical History (Updated 04/18/20 @ 12:13 by Sarah Kunz DO) Controlled diabetes mellitus with hyperglycemia, without long-term current use of insulin Diverticulosis Glaucoma H/O Clostridium difficile infection H/O nephrolithotomy with removal of calculi History of colon polyps History of [place] spotted fever Hypertriglyceridemia Internal hemorrhoids Surgical History H/O circumcision H/O inguinal hernia repair H/O lithotripsy Status post colonoscopy with polypectomy Family History Other Cancer Diabetes Denies family history of Anesthesia complication Bleeding disorder Social History Smoking and tobacco status: never smoked Second hand smoke exposure: No Smoking risk assessment/counseling performed?: No Alcohol intake: never Desire information about alcohol rehabilitation?: No Counseling given: No Desire information about substance/drug rehabilitation?: No Counseling given: No Adopted: No Caregiver/support person: No Lives independently: Yes Household members: spouse Housing: House Marital status: service: No Current occupational status: employed History of recent travel: No Current gender identity: Male Data Anesthesia CBC & Chem 7: 04/18/20 10:30 04/18/20 10:30 Other Labs: Laboratory Results - last 48 hr 04/18/20 04/18/20 04/18/20 10:20 10:28 10:30 WBC 15.2 H RBC 4.81 Hgb 14.6 Hct 45.5 MCV 94.6 H MCH 30.4 MCHC 32.1 RDW 13.2 Plt Count 350 MPV 10.2 Neut % (Auto) 75.5 Lymph % (Auto) 12.9 Yell % (Auto) 9.9 Eos % (Auto) 0.3 Baso % (Auto) 0.5 Neut # (Auto) 11.5 H Lymph # (Auto) 2.0 Yell # (Auto) 1.5 H Eos # (Auto) 0.1 Baso # (Auto) 0.1 Nucleated RBC % (auto) 0 Nucleated RBCs # 0.0 Sodium Potassium Chloride Carbon Dioxide Anion Gap BUN Creatinine GFR Calculation Glucose Calculated Osmolality Lactate Calcium Total Bilirubin AST ALT Alkaline Phosphatase Total Protein Albumin Globulin Urine Color Cancelled [place] Urine Appearance Cancelled Clear Urine pH Cancelled 5.0 Ur Specific [place] Cancelled 1.015 Urine Protein Cancelled Trace Urine Glucose (UA) Cancelled Norm Urine Ketones Cancelled Negative Urine Blood Cancelled 2+ H Urine Nitrate Cancelled Negative Urine Bilirubin Cancelled Neg Prot Sulfosalicylic Acd Cancelled Urine Urobilinogen Cancelled 1 H Ur Leukocyte Esterase Cancelled 1+ H Urine RBC 0-4 H Urine WBC 25-40 H Ur Squamous Epith Cells 5-10 H Amorphous Sediment Not Reportable Urine Bacteria 1+ H Urine Mucus 1+ 04/18/20 04/18/20 10:30 10:30 WBC RBC Hgb Hct MCV MCH MCHC RDW Plt Count MPV Neut % (Auto) Lymph % (Auto) Yell % (Auto) Eos % (Auto) Baso % (Auto) Neut # (Auto) Lymph # (Auto) Yell # (Auto) Eos # (Auto) Baso # (Auto) Nucleated RBC % (auto) Nucleated RBCs # Sodium 129 L Potassium 4.6 Chloride 94 L Carbon Dioxide 21 L Anion Gap 18.6 BUN 22 H Creatinine 1.2 GFR Calculation 62.0 L Glucose 149 H Calculated Osmolality 267 L Lactate 2.3 H Calcium 9.0 Total Bilirubin 1.3 H AST 28 ALT 12 Alkaline Phosphatase 118 Total Protein 8.7 Albumin 2.9 L Globulin 5.8 H Urine Color Urine Appearance Urine pH Ur Specific [place] Urine Protein Urine Glucose (UA) Urine Ketones Urine Blood Urine Nitrate Urine Bilirubin Prot Sulfosalicylic Acd Urine Urobilinogen Ur Leukocyte Esterase Urine RBC Urine WBC Ur Squamous Epith Cells Amorphous Sediment Urine Bacteria Urine Mucus Micro: Microbiology 04/18/20 10:25 Blood Culture - Preliminary Blood SPECIMEN COLLECTED 04/18/20 10:30 Blood Culture - Preliminary Blood SPECIMEN COLLECTED Cardiac Studies: No Data to Display
[2020-04-18] MEDS: iohexol 300 mg/mL 100 mL Btl IV (14:46)
[2020-04-18 14:47] LABS: Basophils # 0.1 10^3/uL (0.0-0.1); Basophils % 0.5 %; Eosinophils % 0.3 %; Hematocrit 43.7 % (42.0-52.0); Hemoglobin 13.9 g/dL (11.7-16.6); Lymphocytes # 1.4 10^3/uL (0.8-4.8); Lymphocytes % 10.4 %; Mean Corpuscular HGB Conc 31.8 g/dL (30.0-36.0); Mean Corpuscular Hemoglobin 30.3 pg (28.0-34.0); Mean Corpuscular Volume 95.2 fL (80-94); Mean Platelet Volume 10.1 fL (7.4-10.4); Monocytes # 1.3 10^3/uL (0.2-0.9); Monocytes % 9.7 %; Neutrophils # 10.2 10^3/uL (1.8-7.7); Nucleated Red Blood Cells % 0 %; Platelet Count 309 10^3/cmm (130-400); Red Blood Count 4.59 10^6/uL (4.1-5.3); Red Cell Distribution Width 13.2 % (12.1-15.1); White Blood Count 13.1 10^3/uL (4.0-10.0)
[2020-04-18 14:55] LABS: INR 1.17 (0.8-1.2)
[2020-04-18 15:01] LABS: Alanine Aminotransferase 12 U/L (0-41); Albumin Level 2.6 g/dL (3.5-5.2); Alkaline Phosphatase 109 IU/L (40-130); Anion Gap 16.6 (5-19); Aspartate Amino Transferase 26 U/L (0-40); Blood Urea Nitrogen 22 mg/dL (6-20); Calcium 8.8 mg/dL (8.5-10.5); Carbon Dioxide 22 mmol/L (22-29); Chloride 94 mmol/L (98-107); Globulin 5.5 g/dL (1.3-4.6); Glomerular Filtration Rate 68.5 mL/min (90-130); Glucose 136 mg/dL (65-115); Osmolality Calculated 265 mOsm/kg (285-295); Potassium 4.6 mmol/L (3.5-5.1); Sodium 128 mmol/L (136-145); Total Bilirubin 1.2 mg/dL (0.15-1.2); Total Protein 8.1 g/dL (6.6-8.7)
[2020-04-18 15:02] LABS: Lactic Sepsis W/Reflex 1.9 mmol/L (0.5-2.2)
[2020-04-18] MEDS: sodium chloride 0.9% 1,000 ML 100 ML IV (16:28)
[2020-04-18 17:05] LABS: Glucose Point of Care 118 mg/dL (70-110)
[2020-04-18] MEDS: piperacillin-tazobactam 3.375 GM in sodium chloride 0.9% (plus) 50 ML IV (20:15)
[2020-04-18] MEDS: morphine 4 mg/mL SDV 1 mL 2 MG IVP (20:20)
--- NOTE | 2020-04-18 20:31 | PC.NURSE ---
Thick maroon colored output with foul smell.
[2020-04-18 20:52] LABS: Glucose Point of Care 124 mg/dL (70-110)
[2020-04-18] MEDS: sodium chloride 0.45% 1,000 ML 100 ML IV (23:01)
[2020-04-19] VITALS (21 sets, daily range): BP systolic 102–177; BP diastolic 57–103; PULSE 83–106; RESP 14–22; TEMP 36.7–37.5; O2SAT 90–98
--- NOTE | 2020-04-19 | SC_ITS ---
WS: [id number] INTRAOPERATIVE TECHNIQUE: 4 Spot fluoroscopic images for intraoperative purposes. FLUOROSCOPY TIME: 63.1 seconds CLINICAL INFORMATION: C-ARM CYSTOURETHROGRAM COMPARISON: None. FINDINGS: Intraoperative cystourethrogram. Deployment of right ureteral stent. Pigtail catheter partially visua lized. SC/C-arm FL for Urology IMPRESSION: Images obtained for intraoperative purposes.
--- NOTE | 2020-04-19 | SCC_ITS ---
Procedure Done: 1. Cystoscopy with urethral dilation 2. Right retrograde ureteropyelogram 3. Right ureteral stent placement (8 [place] by 30 cm double-pigtail without string) 63.1 seconds of fluoroscopic guidance, for a cumulative dose of 41.27 mGy, was provided to Dr. Bradford by the radiology department. C-arm images of the abdomen were saved for the patient's permanent record. [facility]
[2020-04-19] MEDS: morphine 4 mg/mL SDV 1 mL 2 MG IVP ×3 (00:18→19:21)
[2020-04-19] MEDS: piperacillin-tazobactam 3.375 GM in sodium chloride 0.9% (plus) 50 ML IV ×2 (04:16→19:23)
[2020-04-19 06:00] LABS: Basophils # 0.1 10^3/uL (0.0-0.1); Basophils % 0.6 %; Eosinophils # 0.1 10^3/uL (0.0-0.8); Eosinophils % 0.3 %; Hematocrit 42.4 % (42.0-52.0); Hemoglobin 13.3 g/dL (11.7-16.6); Lymphocytes % 13.3 %; Mean Corpuscular HGB Conc 31.4 g/dL (30.0-36.0); Mean Corpuscular Hemoglobin 30.4 pg (28.0-34.0); Mean Platelet Volume 10.7 fL (7.4-10.4); Monocytes # 1.8 10^3/uL (0.2-0.9); Monocytes % 11.8 %; Neutrophils % 72.5 %; Nucleated Red Blood Cells % 0 %; Platelet Count 327 10^3/cmm (130-400); Red Blood Count 4.37 10^6/uL (4.1-5.3); Red Cell Distribution Width 13.2 % (12.1-15.1); White Blood Count 15.2 10^3/uL (4.0-10.0)
--- NOTE | 2020-04-19 06:23 | PC.NURSE ---
Shift Summary Patient is AOx4. Vital Signs stable. Right renal drain had around 900mls out. Drainage was maroon in color, thick with a foul smell. Patients pain was controlled with IV pain medication. Will continue to monitor.
[2020-04-19 06:32] LABS: Anion Gap 16.7 (5-19); Blood Urea Nitrogen 23 mg/dL (6-20); Calcium 8.6 mg/dL (8.5-10.5); Carbon Dioxide 22 mmol/L (22-29); Chloride 99 mmol/L (98-107); Glomerular Filtration Rate 56.5 mL/min (90-130); Glucose 121 mg/dL (65-115); Osmolality Calculated 274 mOsm/kg (285-295); Potassium 4.7 mmol/L (3.5-5.1); Sodium 133 mmol/L (136-145)
[2020-04-19 06:38] LABS: Glucose Point of Care 127 mg/dL (70-110)
[2020-04-19] MEDS: lactobacillus 1 Tablet 1 TAB PO (07:20)
[2020-04-19] MEDS: prednisoLONE 1% Op Susp 5 mL Btl 1 DROP EYE-LEFT (07:20)
--- NOTE | 2020-04-19 08:53 | ANES.PREANE2 ---
Pre-Anesthetic Assessment Pre-Anesthetic Assessment: Height/Weight: Height 1.93 m Weight 159.721 kg Temp Pulse Resp BP Pulse Ox 98.8 F 96 17 132/87 96 04/19/20 08:00 04/19/20 08:00 04/19/20 08:00 04/19/20 08:00 04/19/20 08:00 Preop Diagnosis: Kidney abscess Proposed Procedure: Operation Date: 04/19/20 14:05 Proposed Procedures p Cystoscopy(Not Applicable) - Artur Bradford MD s Ureteral Stent Placement(Right) - Artur Bradford MD s Poss Flexible Ureteroscopy(Right) - Artur Bradford MD Familial anesthetic complications: sleepy after anesthesia Was Beta Grisel taken within 24 hours: N/A Social: Social History: No alcohol and No tobacco Airway: Cervical ROM: WNL MP: 3 Dentition: Full Pulmonary: Comments: denies wojciech CV/HEM: CV/HEM: HTN : Comments: kidney abscess Metabolic: Metabolic: DM and Morbid obesity Anesthetic Plan: ASA status: 3 Anesthesia: General Risk of > 500 ml blood loss (7ml/kg in children): No Meds/Allergies Current Medications: Current Medications Generic Name Dose Route Start Last Admin Trade Name Freq PRN Reason Stop Dose Admin Vancomycin HCl 2,0 00 mg/ 500 mls @ 250 mls /hr 04/18/20 14:15 04/19/20 01:38 Sodium Chloride IV 250 mls/hr Q12H FER Administration Protocol Piperacillin Sod/T azobactam 50 mls @ 12.5 mls /hr 04/18/20 16:30 04/19/20 04:16 Sod 3.375 gm/ So dium Chloride IV 12.5 mls/hr Q8H FER Administration Protocol Sodium Chloride 1,000 mls @ 100 m ls/hr 04/18/20 13:45 04/18/20 23:01 Sodium Chloride 0.45% IV 100 mls/hr .Q10H FER Administration Insulin Aspart 0 unit 04/18/20 21:00 04/18/20 20:51 Novolog SUBCUT Not Given BEDTIME FER Protocol Insulin Aspart 0 unit 04/18/20 18:00 04/19/20 07:19 Novolog SUBCUT Not Given TIDWM FER Protocol Lactobacillus Acid ophilus 1 tab 04/19/20 09:00 04/19/20 07:20 Floranex PO 1 tab DAILY FER Administration Morphine Sulfate 2 mg 04/18/20 13:34 04/19/20 07:19 Morphine IVP 2 mg Q4H PRN Administration SEVERE PAIN Prednisolone Aceta te 1 drop 04/19/20 09:00 04/19/20 07:20 Pred Forte EYE-LEFT 1 drop DAILY FER Administration PFSH Anesthesia PFSH: Medical History (Updated 04/18/20 @ 12:13 by Sarah Kunz DO) Controlled diabetes mellitus with hyperglycemia, without long-term current use of insulin Diverticulosis Glaucoma H/O Clostridium difficile infection H/O nephrolithotomy with removal of calculi History of colon polyps History of [place] spotted fever Hypertriglyceridemia Internal hemorrhoids Surgical History H/O circumcision H/O inguinal hernia repair H/O lithotripsy Status post colonoscopy with polypectomy Family History Other Cancer Diabetes Denies family history of Anesthesia complication Bleeding disorder Social History Smoking and tobacco status: never smoked Second hand smoke exposure: No Smoking risk assessment/counseling performed?: No Alcohol intake: never Desire information about alcohol rehabilitation?: No Counseling given: No Desire information about substance/drug rehabilitation?: No Counseling given: No Adopted: No Caregiver/support person: No Lives independently: Yes Household members: spouse Housing: House Marital status: service: No Current occupational status: employed History of recent travel: No Current gender identity: Male Data Anesthesia CBC & Chem 7: 04/19/20 05:04 04/19/20 05:04 Other Labs: Laboratory Results - last 48 hr 04/18/20 04/18/20 04/18/20 10:20 10:28 10:30 WBC 15.2 H RBC 4.81 Hgb 14.6 Hct 45.5 MCV 94.6 H MCH 30.4 MCHC 32.1 RDW 13.2 Plt Count 350 MPV 10.2 Neut % (Auto) 75.5 Lymph % (Auto) 12.9 [place] % (Auto) 9.9 Eos % (Auto) 0.3 Baso % (Auto) 0.5 Neut # (Auto) 11.5 H Lymph # (Auto) 2.0 [place] # (Auto) 1.5 H Eos # (Auto) 0.1 Baso # (Auto) 0.1 Nucleated RBC % (auto) 0 Nucleated RBCs # 0.0 PT INR Sodium Potassium Chloride Carbon Dioxide Anion Gap BUN Creatinine GFR Calculation Glucose POC Glucose Calculated Osmolality Lactic Acid Lactate Calcium Total Bilirubin AST ALT Alkaline Phosphatase Total Protein Albumin Globulin Urine Color Cancelled [place] Urine Appearance Cancelled Clear Urine pH Cancelled 5.0 Ur Specific [place] Cancelled 1.015 Urine Protein Cancelled Trace Urine Glucose (UA) Cancelled Norm Urine Ketones Cancelled Negative Urine Blood Cancelled 2+ H Urine Nitrate Cancelled Negative Urine Bilirubin Cancelled Neg Prot Sulfosalicylic Acd Cancelled Urine Urobilinogen Cancelled 1 H Ur Leukocyte Esterase Cancelled 1+ H Urine RBC 0-4 H Urine WBC 25-40 H Ur Squamous Epith Cells 5-10 H Amorphous Sediment Not Reportable Urine Bacteria 1+ H Urine Mucus 1+ 04/18/20 04/18/20 04/18/20 10:30 10:30 14:25 WBC RBC Hgb Hct MCV MCH MCHC RDW Plt Count MPV Neut % (Auto) Lymph % (Auto) [place] % (Auto) Eos % (Auto) Baso % (Auto) Neut # (Auto) Lymph # (Auto) [place] # (Auto) Eos # (Auto) Baso # (Auto) Nucleated RBC % (auto) Nucleated RBCs # PT INR Sodium 129 L 128 L Potassium 4.6 4.6 Chloride 94 L 94 L Carbon Dioxide 21 L 22 Anion Gap 18.6 16.6 BUN 22 H 22 H Creatinine 1.2 1.1 GFR Calculation 62.0 L 68.5 L Glucose 149 H 136 H POC Glucose Calculated Osmolality 267 L 265 L Lactic Acid Lactate 2.3 H Calcium 9.0 8.8 Total Bilirubin 1.3 H 1.2 AST 28 26 ALT 12 12 Alkaline Phosphatase 118 109 Total Protein 8.7 8.1 Albumin 2.9 L 2.6 L Globulin 5.8 H 5.5 H Urine Color Urine Appearance Urine pH Ur Specific [place] Urine Protein Urine Glucose (UA) Urine Ketones Urine Blood Urine Nitrate Urine Bilirubin Prot Sulfosalicylic Acd Urine Urobilinogen Ur Leukocyte Esterase Urine RBC Urine WBC Ur Squamous Epith Cells Amorphous Sediment Urine Bacteria Urine Mucus 04/18/20 04/18/20 04/18/20 14:25 14:25 14:25 WBC 13.1 H RBC 4.59 Hgb 13.9 Hct 43.7 MCV 95.2 H MCH 30.3 MCHC 31.8 RDW 13.2 Plt Count 309 MPV 10.1 Neut % (Auto) 78.0 Lymph % (Auto) 10.4 [place] % (Auto) 9.7 Eos % (Auto) 0.3 Baso % (Auto) 0.5 Neut # (Auto) 10.2 H Lymph # (Auto) 1.4 [place] # (Auto) 1.3 H Eos # (Auto) 0.0 Baso # (Auto) 0.1 Nucleated RBC % (auto) 0 Nucleated RBCs # 0.0 PT 15.30 H INR 1.17 Sodium Potassium Chloride Carbon Dioxide Anion Gap BUN Creatinine GFR Calculation Glucose POC Glucose Calculated Osmolality Lactic Acid 1.9 Lactate Calcium Total Bilirubin AST ALT Alkaline Phosphatase Total Protein Albumin Globulin Urine Color Urine Appearance Urine pH Ur Specific [place] Urine Protein Urine Glucose (UA) Urine Ketones Urine Blood Urine Nitrate Urine Bilirubin Prot Sulfosalicylic Acd Urine Urobilinogen Ur Leukocyte Esterase Urine RBC Urine WBC Ur Squamous Epith Cells Amorphous Sediment Urine Bacteria Urine Mucus 04/18/20 04/18/20 04/19/20 16:55 20:35 05:04 WBC 15.2 H RBC 4.37 Hgb 13.3 Hct 42.4 MCV 97.0 H MCH 30.4 MCHC 31.4 RDW 13.2 Plt Count 327 MPV 10.7 H Neut % (Auto) 72.5 Lymph % (Auto) 13.3 [place] % (Auto) 11.8 Eos % (Auto) 0.3 Baso % (Auto) 0.6 Neut # (Auto) 11.0 H Lymph # (Auto) 2.0 [place] # (Auto) 1.8 H Eos # (Auto) 0.1 Baso # (Auto) 0.1 Nucleated RBC % (auto) 0 Nucleated RBCs # 0.0 PT INR Sodium Potassium Chloride Carbon Dioxide Anion Gap BUN Creatinine GFR Calculation Glucose POC Glucose 118 124 Calculated Osmolality Lactic Acid Lactate Calcium Total Bilirubin AST ALT Alkaline Phosphatase Total Protein Albumin Globulin Urine Color Urine Appearance Urine pH Ur Specific [place] Urine Protein Urine Glucose (UA) Urine Ketones Urine Blood Urine Nitrate Urine Bilirubin Prot Sulfosalicylic Acd Urine Urobilinogen Ur Leukocyte Esterase Urine RBC Urine WBC Ur Squamous Epith Cells Amorphous Sediment Urine Bacteria Urine Mucus 04/19/20 04/19/20 05:04 06:23 WBC RBC Hgb Hct MCV MCH MCHC RDW Plt Count MPV Neut % (Auto) Lymph % (Auto) [place] % (Auto) Eos % (Auto) Baso % (Auto) Neut # (Auto) Lymph # (Auto) [place] # (Auto) Eos # (Auto) Baso # (Auto) Nucleated RBC % (auto) Nucleated RBCs # PT INR Sodium 133 L Potassium 4.7 Chloride 99 Carbon Dioxide 22 Anion Gap 16.7 BUN 23 H Creatinine 1.3 H GFR Calculation 56.5 L Glucose 121 H POC Glucose 127 Calculated Osmolality 274 L Lactic Acid Lactate Calcium 8.6 Total Bilirubin AST ALT Alkaline Phosphatase Total Protein Albumin Globulin Urine Color Urine Appearance Urine pH Ur Specific [place] Urine Protein Urine Glucose (UA) Urine Ketones Urine Blood Urine Nitrate Urine Bilirubin Prot Sulfosalicylic Acd Urine Urobilinogen Ur Leukocyte Esterase Urine RBC Urine WBC Ur Squamous Epith Cells Amorphous Sediment Urine Bacteria Urine Mucus Micro: Microbiology 04/18/20 10:25 Blood Culture - Preliminary Blood SPECIMEN COLLECTED 04/18/20 10:30 Blood Culture - Preliminary Blood SPECIMEN COLLECTED Cardiac Studies: No Data to Display
--- NOTE | 2020-04-19 10:52 | PC.CHAP ---
Pastoral Care Encounter/Spiritual Assessment Type of Contact [x] Declined adoption coordinator visit [] Patient/Family/Request visit [] Outpatient visit [] Follow-up visit [] Physician referral [] Code/Alert [] Routine visit [] Staff referral [] Actively dying [] Patient sleeping [] Family support [] [] Out of room [] Palliative care [] [] Receiving care in room [] Pre-surgical visit [] Trauma [] Long length of stay [] ICU visit [] Other: Relational/Emotional Strength [] Patient feels connected with others/family/visitors/staff [] Distress [] Loneliness/isolation [] Abandonment Spirituality of Patient [] Person of Kristy [] Attends Scientologist of their Kristy [] Believes in Prayer [] Reads Bible or Caodaism materials [] There are Spiritual issues to be addressed [place] Interventions [] Prayer [] Active listening [] Non-anxious presence [] Spiritual/emotional support [] Crisis/trauma care [] Spiritual counseling [] Bereavement support [] Provided bereavement packet [] Provided Bible/devotional materials [] Provided toy/stuffed animal, coloring book to patient or family member [] Provided Communion [] Anointing/[place] [] Salvation [] Completed spiritual assessment [] Other: Impact on Illness or Injury [] Angry [] Fearful [] Anxious [] Often cries [] Exhaustion [] Unable to work [] Unable to attend samaritan [] Unable to walk/stand [] Unable to read [] Unable to drive [] Unable to eat/drink [] Unable to sleep [] Unable to be with family [] Patient intubated [] Other: Summary Time spent with patient
--- NOTE | 2020-04-19 11:35 | PM.PN ---
Subjective Subjective: Interval history: Patient awake and sitting at the side of bed today. He reports that he has some pain occasionally in the right-sided drain but pain medication is helping alleviate his discomfort. He denies any chest pain or shortness of breath. Patient denies any nausea or vomiting. Vitals/I&O/Wt Last Vital Signs Temp 98.8 F 04/19/20 08:00 Pulse 96 04/19/20 08:00 Resp 17 04/19/20 08:00 BP 132/87 04/19/20 08:00 Pulse Ox 96 04/19/20 08:00 04/18/20 04/19/20 04/19/20 22:59 06:59 14:59 Intake Total 600 / 600 50 / 650 240 / 240 Output Total 895 / 895 270 / 1165 550 / 550 Balance -295 / -295 -220 / -515 -310 / -310 Weight last 48 hrs Weight 159.721 kg Weight 158.757 kg Physical Exam Const: COMMON NORMALS: patient oriented x3 and alert GENERAL APPEARANCE: cooperative ORIENTATION/CONSCIOUSNESS: Yes awake, Yes oriented to person, Yes oriented to place and Yes oriented to time HENMT: COMMON NORMALS: normocephalic and atraumatic HEAD & SCALP: normocephalic and atraumatic Eye: COMMON NORMALS: Equal, round and reactive pupils present PUPIL: Yes Equal, round and reactive pupils present Neck/C-Spine: COMMON NORMALS: supple GENERAL: Yes normal visual inspection Resp: COMMON NORMALS: normal respiratory effort and clear to auscultation bilaterally EFFORT & INSPECTION: Yes able to speak in complete sentences AUSCULTATION: clear to auscultation bilaterally, no rhonchi and no wheezes Cardio: COMMON NORMALS: regular rhythm and No murmurs present (Cardio) RATE: tachycardic RHYTHM: regular rhythm GI: COMMON NORMALS: Soft to palpation and non-tender INSPECTION: No abdominal distension AUSCULTATION: Yes normoactive bowel sounds PALPATION: Yes Soft to palpation : OTHER: Patient has a right-sided perinephric drain in place with bloody drainage Extremity: COMMON NORMALS: no calf tenderness NARRATIVE EXTREMITY EXAM: Chronic nonpitting edema in the lower extremities bilaterally, negative Homans sign bilaterally, chronic venous stasis in the lower extremities bilaterally Neuro: COMMON NORMALS: patient oriented x3, CN's II-XII intact bilaterally, moves all extremities and no focal motor deficits SENSORIUM/ORIENTATION: Yes alert, Yes oriented to person, Yes oriented to place and Yes oriented to time SPEECH: speech normal Psych: COMMON NORMALS: mental status grossly normal and cooperative Skin: COMMON NORMALS: no rashes or lesions noted GENERAL SKIN EXAM: no rashes or lesions noted Data : 04/19/20 05:04 04/19/20 05:04 Micro: Microbiology 04/18/20 10:28 Urine Culture - Preliminary Urine,Clean Catch 04/18/20 10:25 Blood Culture - Preliminary Blood NEGATIVE TO DATE 04/18/20 10:30 Blood Culture - Preliminary Blood NEGATIVE TO DATE A&P Assessment and plan (1) Renal abscess, right: CT scan performed on admission with finding of right subcapsular fluid collection of 10 x 13 cm with obstructing right UPJ calculus measuring [address] Bradford consulted, appreciate recommendations and assistance in patient's care. Patient underwent drain placement by CT guidance yesterday, 04/18/2020. Continued on broad-spectrum antibiotics Obtain culture from drain Patient to go to the OR for ureteral stent placement today Status: Acute (2) Right ureteral calculus: Right UPJ calculus measuring 9 mm Patient to go to the OR today for stent placement Status: Acute (3) Hypertriglyceridemia: Status: Chronic (4) Controlled diabetes mellitus with hyperglycemia, without long-term current use of insulin: Patient is on weekly Trulicity injection Placed on sliding scale insulin as needed Status: Chronic Additional A&P Information Chronic cough: Likely secondary to lisinopril and postnasal drainage Hypertension: Continue to hold lisinopril due to acute kidney injury secondary to above Sepsis secondary to concern for perinephric abscess on the right: Continue with broad-spectrum antibiotics, continue with IV fluids, cultures remain pending. Imaging with question of mild diverticulitis however patient has no diarrhea or abdominal pain, likely his nausea and vomiting is secondary to perinephric process, n.p.o. for anticipated surgery DVT prophylaxis: SCDs, no pharmacologic prophylaxis due to concern for anticipated surgery Diet: NPO due to anticipated surgery CODE STATUS: Full code Attestations Medical Necessity Statement*: Requires continued hospitalization due to acute kidney injury, concern for perinephric abscess and right UPJ stone Coding Level of Care Code Acute Manhole Stripper for [facility] Diagnoses Renal abscess, right N15.1 Right ureteral calculus N20.1 Hypertriglyceridemia E78.1 Controlled diabetes mellitus with hyperglycemia, without long-term current use of insulin E11.65
[2020-04-19 11:42] LABS: Glucose Point of Care 132 mg/dL (70-110)
--- NOTE | 2020-04-19 13:52 | PM.PN ---
Subjective Subjective: Interval history: Remained afebrile overnight. Having some right-sided flank pain. Some nausea as well. Otherwise hemodynamically stable without significant complaints. I reviewed with him the issues related now to the stone and the urinary tract infection have recommended a stent placement for further decompression. He reports that there was up to 3 bags full after drain placement that had to be emptied. My estimation that would represent the bulk of the fluid that was in the collection. I will discuss with Dr. Kidd the findings at time of CT scan. Reviewed the procedure of cystoscopy and stent placement. Informed consent was obtained to proceed with that this afternoon. Medications: Reviewed: Yes Vitals/I&O/Wt Last Vital Signs Temp 99.5 F 04/19/20 11:45 Pulse 94 04/19/20 13:19 Resp 18 04/19/20 13:19 BP 156/94 04/19/20 13:19 Pulse Ox 94 04/19/20 13:19 04/18/20 04/19/20 04/19/20 22:59 06:59 14:59 Intake Total 600 / 600 50 / 650 240 / 240 Output Total 895 / 895 270 / 1165 750 / 750 Balance -295 / -295 -220 / -515 -510 / -510 Weight last 48 hrs Weight 352 lb 2 oz Weight 350 lb Physical Exam Const: COMMON NORMALS: no acute distress, alert and well nourished GENERAL APPEARANCE: well kempt and well developed ORIENTATION/CONSCIOUSNESS: not confused HENMT: COMMON NORMALS: normocephalic and atraumatic HEAD & SCALP: normocephalic and atraumatic Resp: COMMON NORMALS: normal respiratory effort EFFORT & INSPECTION: No labored and No Actively coughing Extremity: COMMON NORMALS: no clubbing, cyanosis or edema Neuro: COMMON NORMALS: no focal motor deficits SENSORIUM/ORIENTATION: Yes alert Psych: COMMON NORMALS: mental status grossly normal APPEARANCE: Yes grossly normal and Yes well kempt ATTITUDE: Yes calm and Yes engaged Data : 04/19/20 05:04 04/19/20 05:04 Micro: Microbiology 04/18/20 16:00 Body Fluid Culture - Preliminary Other Source Gram Negative Rods 04/18/20 10:28 Urine Culture - Preliminary Urine,Clean Catch 04/18/20 10:25 Blood Culture - Preliminary Blood NEGATIVE TO DATE 07/01/20 10:30 Blood Culture - Preliminary Blood NEGATIVE TO DATE A&P Assessment and plan (1) Renal abscess, right: Status: Acute (2) Right ureteral calculus: Placed stent today. UTI plus ureteral calculus necessitates intervention to reduce risk of further infectious complications. Status: Acute (3) Enterococcus UTI: Status: Acute Attestations Medical Necessity Statement*: Still critically ill with UTI and recent abscess drainage with ureteral calculus. Coding Level of Care Code Acute Customer Service Sales Consultant for [facility] Diagnoses Renal abscess, right N15.1 Right ureteral calculus N20.1 Enterococcus UTI N39.0; B95.2
[2020-04-19] MEDS: iohexol 300 mg/mL 50 mL Btl (OR ONLY) XX (14:17)
--- NOTE | 2020-04-19 14:43 | P.OP_ITS ---
Operative Report Date of procedure: April 19, 2020 Pre-op Diagnosis: Obstructing ureteral calculus right with UTI Post-op Diagnosis: 1. Obstructing right ureteral calculus with UTI status post renal abscess drainage 2. Urethral stricture Procedure Done: 1. Cystoscopy with urethral dilation 2. Right retrograde ureteropyelogram 3. Right ureteral stent placement (8 [place] by 30 cm double-pigtail without string) Pathology: none sent Surgeon: Sanchez Anesthesia: General Estimated blood loss: Minimal Urine output: Not measured Complications: None Findings: 1. Unexpected urethral stricture dilated with Amplatz dilators 2. Retrograde pyelogram confirmed obstructing stone 3. 8 [place] by 30 cm double-pigtail stent passed without difficulty. Condition: stable Disposition: PACU Brief History: Mr. Ortiz is a very pleasant 59-year-old white male who was admitted to the hospital with evidence of a large right renal abscess and has undergone percutaneous drainage yesterday via CT guidance. He was known to have a large stone previously in the right lower pole that migrated to the right proximal ureter. It was unclear that the stone was causing significant hydronephrosis but he was found to have a urinary tract infection on culture and because of the concern about potential infection is possibly even being related to the renal abscess it was decided to go ahead and place a stent today. He has been hemodynamically stable since the abscess was drained. Procedure: After urgent evaluation examination and obtaining of informed consent he was taken to the operating suite on 04/19/2020 where general anesthesia was administered without difficulty after appropriate timeout was performed, SCDs confirmed to be functioning, therapeutic antibiotics administered and beta- ash protocol confirmed. Prepped and draped in usual sterile fashion in dorsolithotomy position pain careful attention to avoiding pressure points 21 [place] cystoscope with 30 degree lens was introduced into the urethral meatus and advanced into the bulbar urethra where a tight urethral stricture was identified. A guidewire was passed through the stricture and under fluoroscopic guidance the stricture was dilated sequentially with Amplatz dilators from 8 [place] to 20 [place]. The cystoscope was then advanced over the guidewire through the urethra through the urethral stricture into the bladder under videoscopy. No gross abnormality was identified although he did have a large prostate. An 8 [place] cone-tipped catheter was intubated into the right ureteral orifice for right retrograde ureteropyelogram demonstrating normal distal ureter, filling defect in the mid ureter consistent with a stone, proximal dilation beyond that point. Good drainage distal to the stone after removal of the catheter. The flexible tip guidewire was then passed up the right ureter bypassing the stone and curling the upper pole calyx. An 8 [place] by 30 cm double-pigtail stent was advanced over the guidewire through the cystoscope beyond the stone into appropriate position as confirmed via fluoroscopy and cystoscopy. There was significant drainage of cloudy urine through the distal aspect of the stent after removal of the wire. Because of the urethral dilation it was decided to leave a catheter in his bladder which will also help facilitate any upper urinary tract drainage. He remained hemodynamically stable throughout the procedure but did have a temperature of 38.5. Tolerated the procedure well without complications and was awakened in the operating room and returned to the care of in stable condition. We will maintain the Lane catheter for a day or 2 and then conduct voiding trial.
[2020-04-19 16:51] LABS: Glucose Point of Care 156 mg/dL (70-110)
[2020-04-19] MEDS: sodium chloride 0.45% 1,000 ML 100 ML IV (19:19)
[2020-04-19 21:52] LABS: Glucose Point of Care 125 mg/dL (70-110)
[2020-04-20] VITALS (8 sets, daily range): BP systolic 122–140; BP diastolic 72–94; PULSE 81–123; RESP 14–20; TEMP 37–37.3; O2SAT 91–95
[2020-04-20] MEDS: morphine 4 mg/mL SDV 1 mL 2 MG IVP ×2 (03:44→18:28)
[2020-04-20] MEDS: piperacillin-tazobactam 3.375 GM in sodium chloride 0.9% (plus) 50 ML IV ×3 (03:45→20:40)
--- NOTE | 2020-04-20 04:08 | PC.NURSE ---
Drainage is pink with more white/haque color then last night.
[2020-04-20 05:43] LABS: Basophils # 0.1 10^3/uL (0.0-0.1); Basophils % 0.5 %; Eosinophils # 0.1 10^3/uL (0.0-0.8); Eosinophils % 0.5 %; Hematocrit 41.3 % (42.0-52.0); Lymphocytes # 1.4 10^3/uL (0.8-4.8); Lymphocytes % 9.2 %; Mean Corpuscular HGB Conc 31.5 g/dL (30.0-36.0); Mean Corpuscular Hemoglobin 30.2 pg (28.0-34.0); Mean Corpuscular Volume 95.8 fL (80-94); Mean Platelet Volume 10.7 fL (7.4-10.4); Monocytes # 1.5 10^3/uL (0.2-0.9); Monocytes % 9.5 %; Neutrophils # 11.9 10^3/uL (1.8-7.7); Neutrophils % 78.1 %; Nucleated Red Blood Cells % 0 %; Platelet Count 266 10^3/cmm (130-400); Red Blood Count 4.31 10^6/uL (4.1-5.3); Red Cell Distribution Width 13.3 % (12.1-15.1); White Blood Count 15.3 10^3/uL (4.0-10.0)
--- NOTE | 2020-04-20 06:02 | PC.NURSE ---
Shift Summary Patient Vital Signs Stable overnight. Urine output was WNL and drainage from right renal drain was 100mls. Patient pain was better then the night before. Will continue to monitor.
[2020-04-20 06:11] LABS: Anion Gap 17.5 (5-19); Blood Urea Nitrogen 16 mg/dL (6-20); Calcium 8.3 mg/dL (8.5-10.5); Carbon Dioxide 21 mmol/L (22-29); Chloride 100 mmol/L (98-107); Glomerular Filtration Rate 76.5 mL/min (90-130); Glucose 147 mg/dL (65-115); Osmolality Calculated 277 mOsm/kg (285-295); Potassium 4.5 mmol/L (3.5-5.1); Sodium 134 mmol/L (136-145)
[2020-04-20] MEDS: prednisoLONE 1% Op Susp 5 mL Btl 1 DROP EYE-LEFT (08:54)
[2020-04-20] MEDS: lactobacillus 1 Tablet 1 TAB PO (08:55)
[2020-04-20] MEDS: sodium chloride 0.45% 1,000 ML 100 ML IV (09:01)
--- NOTE | 2020-04-20 09:57 | PM.PN ---
Subjective Subjective: Interval history: Postoperative day #2 percutaneous drainage of right renal abscess Postoperative day #1 placement of right ureteral stent Feeling better with less pain. Requiring less pain medication for the right flank discomfort. He has been afebrile since the OR. White count is still elevated at 15.3 Denies any fever or chills. 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 I will plan on taking the catheter out tomorrow for voiding trial. Did review the importance of stricture patency maintenance. Right percutaneous drain appears to have put out about 180 cc in the last 24 hours. Total output has been approximately thousand and 80 cc since placement. We will start his diabetic diet again today. Recommend ambulation with assistance as needed He states that he is okay but he seems a little bit depressed today. Vitals/I&O/Wt Last Vital Signs Temp 98.7 F 04/20/20 07:45 Pulse 81 04/20/20 07:45 Resp 15 04/20/20 07:45 BP 122/81 04/20/20 07:45 Pulse Ox 94 04/20/20 07:45 04/19/20 04/20/20 04/20/20 22:59 06:59 14:59 Intake Total 0 / 1290 1530 / 2820 50 / 50 Output Total 300 / 1050 700 / 1750 725 / 725 Balance -300 / 240 830 / 1070 -675 / -675 Weight last 48 hrs Weight 343 lb 7 oz Weight 352 lb 2 oz Weight 350 lb Physical Exam Const: COMMON NORMALS: no acute distress, alert and well nourished GENERAL APPEARANCE: well kempt and well developed ORIENTATION/CONSCIOUSNESS: not confused HENMT: COMMON NORMALS: normocephalic and atraumatic HEAD & SCALP: normocephalic and atraumatic Eye: COMMON NORMALS: conjunctivae normal and no scleral icterus CONJUNCTIVA: Yes conjunctivae normal Neck/C-Spine: COMMON NORMALS: full ROM GENERAL: Yes normal visual inspection Resp: COMMON NORMALS: normal respiratory effort EFFORT & INSPECTION: No labored and No Actively coughing Neuro: COMMON NORMALS: no focal motor deficits SENSORIUM/ORIENTATION: Yes alert Psych: COMMON NORMALS: mental status grossly normal APPEARANCE: Yes grossly normal and Yes well kempt ATTITUDE: Yes calm and Yes engaged Skin: COMMON NORMALS: no rashes or lesions noted and no jaundice GENERAL SKIN EXAM: no rashes or lesions noted Urinary Catheter Management^: Lane: Cath Placed During This Visit: yes Reason for Continuing Indwelling Catheter: Other Urinary Catheter Date of Insertion: 04/19/20 Urinary Catheter Time of Insertion: 14:20 Data : 04/20/20 04:50 04/20/20 04:50 Micro: Microbiology 04/18/20 16:00 Body Fluid Culture - Preliminary Other Source Gram Negative Rods 04/18/20 10:28 Urine Culture - Preliminary Urine,Clean Catch 04/18/20 10:25 Blood Culture - Preliminary Blood NEGATIVE TO DATE 04/18/20 10:30 Blood Culture - Preliminary Blood NEGATIVE TO DATE A&P Assessment and plan (1) Renal abscess, right: Status post percutaneous drainage of right renal abscess. Status: Acute (2) Right ureteral calculus: Large right ureteral calculus status post emergency stenting. We will need to make plans for definitive treatment after recovery from infection. Status: Acute (3) Enterococcus UTI: Status: Acute Attestations Medical Necessity Statement*: Still with leukocytosis from severe infection manifested by right renal abscess and obstructive pyelonephritis from stone. Clinically appears to be doing better but leukocytosis is still persistent. Continue IV antibiotics and close observation Coding Level of Care Code Acute Manuscript Reader for [facility] Fwd Diagnoses Renal abscess, right N15.1 Right ureteral calculus N20.1 Enterococcus UTI N39.0; B95.2
--- NOTE | 2020-04-20 12:21 | P.PN_ITS ---
Subjective Subjective: Interval history: No acute events overnight. Patient has remained afebrile. Examination today patient states he is feeling little better than yesterday. Complaining of pain. Medications: Reviewed: Yes Vitals/I&O/Wt Last Vital Signs Temp 99.0 F 04/20/20 11:53 Pulse 92 04/20/20 11:53 Resp 17 04/20/20 11:53 BP 125/83 04/20/20 11:53 Pulse Ox 94 04/20/20 11:53 04/19/20 04/20/20 04/20/20 22:59 06:59 14:59 Intake Total 0 / 1290 1530 / 2820 50 / 50 Output Total 300 / 1050 700 / 1750 725 / 725 Balance -300 / 240 830 / 1070 -675 / -675 Weight last 48 hrs Weight 155.781 kg Weight 159.721 kg Physical Exam Const: COMMON NORMALS: patient oriented x3 and alert GENERAL APPEARANCE: cooperative ORIENTATION/CONSCIOUSNESS: Yes awake, Yes oriented to person, Yes oriented to place and Yes oriented to time HENMT: COMMON NORMALS: normocephalic and atraumatic HEAD & SCALP: normocephalic and atraumatic Eye: COMMON NORMALS: Equal, round and reactive pupils present PUPIL: Yes Equal, round and reactive pupils present Neck/C-Spine: COMMON NORMALS: supple GENERAL: Yes normal visual inspection Resp: COMMON NORMALS: normal respiratory effort and clear to auscultation bilaterally EFFORT & INSPECTION: Yes able to speak in complete sentences AUSCULTATION: clear to auscultation bilaterally, no rhonchi and no wheezes Cardio: COMMON NORMALS: regular rhythm and No murmurs present (Cardio) RATE: tachycardic RHYTHM: regular rhythm GI: COMMON NORMALS: Soft to palpation and non-tender INSPECTION: No abdominal distension AUSCULTATION: Yes normoactive bowel sounds PALPATION: Yes Soft to palpation : COMMON NORMALS: Yes no CVA tenderness BLADDER/KIDNEY EXAM: Yes no CVA tenderness OTHER: Patient has a right-sided perinephric drain in place with bloody drainage Back/Pelvis: COMMON NORMALS: no CVA tenderness Extremity: COMMON NORMALS: no calf tenderness NARRATIVE EXTREMITY EXAM: Chronic nonpitting edema in the lower extremities bilaterally, negative Homans sign bilaterally, chronic venous stasis in the lower extremities bilaterally Neuro: COMMON NORMALS: patient oriented x3, CN's II-XII intact bilaterally, moves all extremities and no focal motor deficits SENSORIUM/ORIENTATION: Yes alert, Yes oriented to person, Yes oriented to place and Yes oriented to time SPEECH: speech normal Psych: COMMON NORMALS: mental status grossly normal and cooperative Skin: COMMON NORMALS: no rashes or lesions noted GENERAL SKIN EXAM: no rashes or lesions noted Urinary Catheter Management^: Lane: Cath Placed During This Visit: yes Reason for Continuing Indwelling Catheter: Other Urinary Catheter Date of Insertion: 04/19/20 Urinary Catheter Time of Insertion: 14:20 Data : 04/21/20 05:16 04/21/20 05:16 Micro: Microbiology 04/18/20 10:28 Urine Culture - Preliminary Urine,Clean Catch Enterococcus species 04/18/20 16:00 Body Fluid Culture - Preliminary Other Source Gram Negative Rods 04/18/20 10:25 Blood Culture - Preliminary Blood NEGATIVE TO DATE 04/18/20 10:30 Blood Culture - Preliminary Blood NEGATIVE TO DATE A&P Assessment and plan (1) Renal abscess, right: Status: Acute (2) Right ureteral calculus: Right UPJ calculus measuring 9 mm Post right ureteral stent placement on April 19. Status: Acute (3) Hypertriglyceridemia: Status: Chronic (4) Controlled diabetes mellitus with hyperglycemia, without long-term current use of insulin: Patient is on weekly Trulicity injection Placed on sliding scale insulin as needed Status: Chronic Additional A&P Information Sepsis secondary to concern for perinephric abscess on the right: Continue with broad-spectrum antibiotics, continue with IV fluids, cultures remain pending. Renal abscess: Post CT-guided nephrostomy tube placement on April 18, 2020. Post right ureteral stent placement on April 19, 2020. Culture results from urine growing E. coli. As white count has persistently remained elevated for now we will continue vancomycin and Zosyn. If right foot continues to trend up will do a CT abdomen pelvis tomorrow after confirming Dr. Bradford. Normal saline at 100 cc/h. Keep mean artery pressure was 65 mmHg. Morphine for pain. Type 2 diabetes mellitus: Treat with insulin sliding scale. Carb consistent diet. Chronic cough: Likely secondary to lisinopril and postnasal drainage Hypertension: Blood pressure well controlled. Goal blood pressure 140/90 mmHg. Continue to hold lisinopril due to acute kidney injury secondary to above Imaging with question of mild diverticulitis however patient has no diarrhea or abdominal pain, likely his nausea and vomiting is secondary to perinephric process, n.p.o. for anticipated surgery DVT prophylaxis: SCDs, no pharmacologic prophylaxis due to concern for anticipated surgery Diet: Carb consistent diet CODE STATUS: Full code Attestations Medical Necessity Statement*: Renal abscess, sepsis Time Spent in Patient Care: Greater than 35 minutes (>than 50% of time spent in counselling and/or direct pt care on unit) . Coding Level of Care Code Acute Senior Account Executive for [facility] Fwd Exam Comprehensive Diagnoses Renal abscess, right N15.1 Right ureteral calculus N20.1 Hypertriglyceridemia E78.1 Controlled diabetes mellitus with hyperglycemia, without long-term current use of insulin E11.65
[2020-04-20 18:07] LABS: Glucose Point of Care 186 mg/dL (70-110)
[2020-04-20 20:59] LABS: Glucose Point of Care 180 mg/dL (70-110)
[2020-04-21] VITALS: BP 132/78; PULSE 112; RESP 18; TEMP 37.3; O2SAT 93
[2020-04-21] MEDS: sodium chloride 0.45% 1,000 ML 100 ML IV (01:45)
[2020-04-21 04:00] VITALS: BP 128/74; PULSE 108; RESP 18; TEMP 37.2; O2SAT 94
[2020-04-21] MEDS: piperacillin-tazobactam 3.375 GM in sodium chloride 0.9% (plus) 50 ML IV ×3 (04:44→22:35)
[2020-04-21 05:59] LABS: Basophils # 0.1 10^3/uL (0.0-0.1); Basophils % 0.6 %; Eosinophils # 0.1 10^3/uL (0.0-0.8); Eosinophils % 0.4 %; Hematocrit 43.4 % (42.0-52.0); Hemoglobin 14.1 g/dL (11.7-16.6); Lymphocytes # 2.1 10^3/uL (0.8-4.8); Lymphocytes % 10.5 %; Mean Corpuscular HGB Conc 32.5 g/dL (30.0-36.0); Mean Corpuscular Hemoglobin 31.6 pg (28.0-34.0); Mean Corpuscular Volume 97.3 fL (80-94); Mean Platelet Volume 10.4 fL (7.4-10.4); Monocytes # 1.7 10^3/uL (0.2-0.9); Monocytes % 8.6 %; Nucleated Red Blood Cells % 0 %; Platelet Count 257 10^3/cmm (130-400); Red Blood Count 4.46 10^6/uL (4.1-5.3); Red Cell Distribution Width 13.3 % (12.1-15.1); White Blood Count 19.7 10^3/uL (4.0-10.0)
[2020-04-21 06:17] LABS: Anion Gap 17.3 (5-19); Blood Urea Nitrogen 20 mg/dL (6-20); Calcium 8.2 mg/dL (8.5-10.5); Carbon Dioxide 20 mmol/L (22-29); Chloride 97 mmol/L (98-107); Creatinine Clr Calc Pharmacy 83.3805; Glomerular Filtration Rate 56.5 mL/min (90-130); Glucose 171 mg/dL (65-115); Osmolality Calculated 271 mOsm/kg (285-295); Potassium 4.3 mmol/L (3.5-5.1); Sodium 130 mmol/L (136-145)
[2020-04-21 07:22] VITALS: BP 111/74; PULSE 99; RESP 22; TEMP 36.7; O2SAT 91
[2020-04-21 07:35] LABS: Glucose Point of Care 163 mg/dL (70-110)
--- NOTE | 2020-04-21 08:07 | CTR_ITS ---
PROCEDURE INFORMATION: Exam: CT Abdomen And Pelvis Without Contrast Exam date and time: 04/21/2020 8:44 AM Age: 59 years old Clinical indication: Abdominal pain; Prior surgery; Additional info: Renal abscess TECHNIQUE: Imaging protocol: Computed tomography of the abdomen and pelvis without contrast. Radiation optimization: All CT scans at this facility use at least one of these dose optimization techniques: automated exposure control; mA and/or kV adjustment per patient size (includes targeted exams where dose is matched to clinical indication); or iterative reconstruction. COMPARISON: CT abdomen pelvis w con* [id number] 04/18/2020 2:36 PM RADIATION DOSE METRICS: Total DLP (mGy-cm): 1487.81 FINDINGS: Detailed evaluation of the abdominal and pelvic viscera is somewhat limited in the absence of intravenous contrast. Lungs: Interstitial prominence, chronic granulomatous disease, and poorly defined subpleural parenchymal density in the lingula. Coronary artery calcification. Liver: Fatty infiltration of the liver. Gallbladder and bile ducts: High attenuation bile in the dilated gallbladder. No biliary ductal dilatation. Pancreas: No pancreatic mass or ductal dilatation. Spleen: Enlarged spleen measuring 17.1 cm in length. Adrenals: Unremarkable adrenals. Kidneys and ureters: Nonobstructing 2 mm left renal calculus. Percutaneous drainage catheter in the right posterior perinephric space, with marked interval improvement in perinephric fluid collection, which currently measures 2.2 cm in transverse dimension, and previously measured 9.7 cm. Prominent infiltration of right perinephric fat. 10 mm calculus in the right renal pelvis and 7 mm calculus in the posterior right kidney. Right double-J catheter extends from a right upper pole calyx into the anterior bladder, with small foci of air in the upper collecting system, without significant hydronephrosis. Stomach and bowel: Mild small bowel dilatation without a transition zone. Diverticula, disproportionately localized in the sigmoid colon. Appendix: No acute appendicitis. Intraperitoneal space: No significant free fluid. Vasculature: Vascular calcification. No abdominal aortic aneurysm. Lymph nodes: Stable enlarged lymph nodes including 3.1 x 2.0 x 4.2 cm portacaval and 2.6 x 2.1 by 1.8 cm celiac lymph nodes. Bladder: Decompressed bladder. Reproductive: Prostate calcification. Bones/joints: Schmorl's nodes and degenerative change. Soft tissues: Small umbilical and inguinal hernias. CT/CT abdomen pelvis wo con [id number] IMPRESSION: 1. Percutaneous drainage catheter in the right posterior perinephric space, with marked interval improvement in perinephric fluid collection, which currently measures 2.2 cm in transverse dimension, and previously measured 9.7 cm. 2. 10 mm calculus in the right renal pelvis and 7 mm calculus in the posterior right kidney. 3. Additional findings as described above. Radiation Dose CTDIVOL = (mGy): DLP = 1487.81 (mGy-cm)
--- NOTE | 2020-04-21 08:19 | PM.PN ---
Subjective Subjective: Interval history: Postoperative day #2 from stent placement and postop day #3 from drain placement. Has had no fever but his white count today has increased again to 19. Has been tachycardic. Respiratory rate has been creeping up as well. Complaining of night sweats and flushing. Drain put out about 65 cc over the last 24 hours. Continues to have fecal urgency and occasional accidents. Apparently last night during 1 of those episodes he could not wait for help and unplug his IV and went to the bathroom with blood leaking out of the IV. With the above clinical concerns I think it makes sense to do a CT scan to look for possible collections that may be undrained. Also need to make sure that the stent is performing well. Recommend keeping his Lane catheter in until we know for sure. Reviewed with Dr. Lehman. Agreed with CT scan. He will also check a C. difficile. More to follow after imaging. Medications: Reviewed: Yes Vitals/I&O/Wt Last Vital Signs Temp 98.0 F 04/21/20 07:22 Pulse 99 04/21/20 07:22 Resp 22 H 04/21/20 07:22 BP 111/74 04/21/20 07:22 Pulse Ox 91 04/21/20 07:22 04/20/20 04/21/20 04/21/20 22:59 06:59 14:59 Intake Total 2100 / 2320 50 / 2370 Output Total 595 / 1320 420 / 1740 Balance 1505 / 1000 -370 / 630 Weight last 48 hrs Weight 244 lb 9.6 oz Weight 244 lb Weight 343 lb 7 oz Physical Exam Const: COMMON NORMALS: no acute distress, alert and well nourished GENERAL APPEARANCE: well kempt and well developed ORIENTATION/CONSCIOUSNESS: not confused Resp: COMMON NORMALS: normal respiratory effort EFFORT & INSPECTION: No labored and No Actively coughing Neuro: SENSORIUM/ORIENTATION: Yes alert Psych: COMMON NORMALS: mental status grossly normal APPEARANCE: Yes grossly normal and Yes well kempt ATTITUDE: Yes calm and Yes engaged Urinary Catheter Management^: Lane: Cath Placed During This Visit: yes Reason for Continuing Indwelling Catheter: Acute Urinary Retention or Obstruction Urinary Catheter Date of Insertion: 04/19/20 Urinary Catheter Time of Insertion: 14:20 Data : 04/21/20 05:16 04/21/20 05:16 Micro: Microbiology 07/01/20 16:00 Body Fluid Culture - Preliminary Other Source Escherichia coli Streptococcus species 04/18/20 10:28 Urine Culture - Preliminary Urine,Clean Catch Enterococcus species A&P Assessment and plan (1) Right ureteral calculus: Status post emergency stenting for bypassing of large right proximal ureteral stone in face of urinary tract infection. Had improvement in his right flank pain following this stenting. Status: Acute (2) Renal abscess, right: Status post percutaneous drainage with large volume obtained. Cultures grew E. coli, pansensitive and scant enterococcus similar to what was grown in his urine. Despite this his white count is still rising. Unclear if this is the source. Have recommended a repeat CT scan to look for any loculations or undrained fluid Status: Acute (3) Enterococcus UTI: Thank. Status: Acute (4) Diarrhea: Will be tested for C. difficile Status: Acute Attestations Medical Necessity Statement*: Rising white count. Concern for worsening infection. Cannot be managed as outpatient at this point. Coding Level of Care Code Acute Hardware Design Engineer for [facility] Diagnoses Right ureteral calculus N20.1 Renal abscess, right N15.1 Enterococcus UTI N39.0; B95.2 Diarrhea R19.7
[2020-04-21] MEDS: lactobacillus 1 Tablet 1 TAB PO (09:15)
[2020-04-21] MEDS: oxybutynin 5 mg Tablet PO ×2 (09:15→18:32)
[2020-04-21] MEDS: prednisoLONE 1% Op Susp 5 mL Btl 1 DROP EYE-LEFT (09:19)
[2020-04-21 12:00] VITALS: BP 122/71; PULSE 84; RESP 20; TEMP 36.2; O2SAT 94
[2020-04-21 12:14] LABS: Glucose Point of Care 143 mg/dL (70-110)
--- NOTE | 2020-04-21 14:25 | P.PN_ITS ---
Subjective Subjective: Interval history: No acute events overnight. Patient has remained afebrile. States he is feeling a lot better today. On examination lying comfortably in bed. Patient has been up and about to the bathroom. Drain overnight 65 cc. Vitals/I&O/Wt Last Vital Signs Temp 97.2 F L 04/21/20 12:00 Pulse 84 04/21/20 12:00 Resp 20 H 04/21/20 12:00 BP 122/71 04/21/20 12:00 Pulse Ox 94 04/21/20 12:00 04/20/20 04/21/20 04/21/20 22:59 06:59 14:59 Intake Total 2100 / 2320 50 / 2370 730 / 730 Output Total 595 / 1320 420 / 1740 Balance 1505 / 1000 -370 / 630 730 / 730 Weight last 48 hrs Weight 110.949 kg Weight 110.677 kg Weight 155.781 kg Physical Exam Const: COMMON NORMALS: patient oriented x3 and alert GENERAL APPEARANCE: cooperative ORIENTATION/CONSCIOUSNESS: Yes awake, Yes oriented to person, Yes oriented to place and Yes oriented to time HENMT: COMMON NORMALS: normocephalic and atraumatic HEAD & SCALP: normocephalic and atraumatic Eye: COMMON NORMALS: Equal, round and reactive pupils present PUPIL: Yes Equal, round and reactive pupils present Neck/C-Spine: COMMON NORMALS: supple GENERAL: Yes normal visual inspection Resp: COMMON NORMALS: normal respiratory effort and clear to auscultation bilaterally EFFORT & INSPECTION: Yes able to speak in complete sentences AUSCULTATION: clear to auscultation bilaterally, no rhonchi and no wheezes Cardio: COMMON NORMALS: regular rhythm and No murmurs present (Cardio) RATE: tachycardic RHYTHM: regular rhythm GI: COMMON NORMALS: Soft to palpation and non-tender INSPECTION: No abdominal distension AUSCULTATION: Yes normoactive bowel sounds PALPATION: Yes Soft to palpation : COMMON NORMALS: Yes no CVA tenderness BLADDER/KIDNEY EXAM: Yes no CVA tenderness OTHER: Patient has a right-sided perinephric drain in place with bloody drainage Back/Pelvis: COMMON NORMALS: no CVA tenderness Extremity: COMMON NORMALS: no calf tenderness NARRATIVE EXTREMITY EXAM: Chronic nonpitting edema in the lower extremities bilaterally, negative Homans sign bilaterally, chronic venous stasis in the lower extremities bilaterally Neuro: COMMON NORMALS: patient oriented x3, CN's II-XII intact bilaterally, moves all extremities and no focal motor deficits SENSORIUM/ORIENTATION: Yes alert, Yes oriented to person, Yes oriented to place and Yes oriented to time SPEECH: speech normal Psych: COMMON NORMALS: mental status grossly normal and cooperative Skin: COMMON NORMALS: no rashes or lesions noted GENERAL SKIN EXAM: no rashes or lesions noted Urinary Catheter Management^: Lane: Cath Placed During This Visit: yes Reason for Continuing Indwelling Catheter: Acute Urinary Retention or Obstruction Urinary Catheter Date of Insertion: 04/19/20 Urinary Catheter Time of Insertion: 14:20 Data : 04/21/20 05:16 04/21/20 05:16 Micro: Microbiology 04/21/20 10:45 Stool Lactoferrin - Final Stool C.difficile Toxin B Gene (PCR) - Final Occult Blood (FIT) - Final 04/18/20 10:28 Urine Culture - Final Urine,Clean Catch Enterococcus faecalis Enterococcus avium 04/18/20 16:00 Body Fluid Culture - Preliminary Other Source Escherichia coli Enterococcus species A&P Assessment and plan (1) Renal abscess, right: Status: Acute (2) Right ureteral calculus: Right UPJ calculus measuring 9 mm Post right ureteral stent placement on April 19. Status: Acute (3) Hypertriglyceridemia: Status: Chronic (4) Controlled diabetes mellitus with hyperglycemia, without long-term current use of insulin: Patient is on weekly Trulicity injection Placed on sliding scale insulin as needed Status: Chronic Additional A&P Information Sepsis secondary to concern for perinephric abscess on the right: Continue with broad-spectrum antibiotics, continue with IV fluids, cultures remain pending. Renal abscess: Post CT-guided nephrostomy tube placement on April 18, 2020. Post right ureteral stent placement on April 19, 2020. Culture results from urine growing enterococcus while from the abscess growing E. coli. As patient's white count continues to trend up for now we will not de-escalate antibiotics and continue with vancomycin and Zosyn. We will repeat CT abdomen pelvis to confirm the placement of the nephrostomy tube. Patient states today he has a history of C. difficile a year ago and having some diarrhea today so we will check stool studies for C. difficile. For now we will hold off on oral vancomycin till C. difficile results come back. No Imodium till the results back as well. Continue with IV fluids. Case discussed with Dr. rBadford. Normal saline at 100 cc/h. Keep mean artery pressure was 65 mmHg. Morphine for pain. Type 2 diabetes mellitus: Treat with insulin sliding scale. Carb consistent diet. Chronic cough: Likely secondary to lisinopril and postnasal drainage Hypertension: Blood pressure well controlled. Goal blood pressure 140/90 mmHg. Continue to hold lisinopril due to acute kidney injury secondary to above Imaging with question of mild diverticulitis however patient has no diarrhea or abdominal pain, likely his nausea and vomiting is secondary to perinephric process, n.p.o. for anticipated surgery DVT prophylaxis: SCDs, no pharmacologic prophylaxis due to concern for anticipated surgery Diet: Carb consistent diet CODE STATUS: Full code Attestations Medical Necessity Statement*: Renal abscess. Sepsis. Time Spent in Patient Care: Greater than 35 minutes (>than 50% of time spent in counselling and/or direct pt care on unit) . Coding Level of Care Code Acute Logistics Planning Manager for [facility] Diagnoses Renal abscess, right N15.1 Right ureteral calculus N20.1 Hypertriglyceridemia E78.1 Controlled diabetes mellitus with hyperglycemia, without long-term current use of insulin E11.65
[2020-04-21 16:00] VITALS: BP 108/71; PULSE 84; RESP 20; TEMP 36.4; O2SAT 94
[2020-04-21 18:01] LABS: Glucose Point of Care 139 mg/dL (70-110)
[2020-04-21] MEDS: sodium chloride 0.9% 1,000 ML 75 ML IV (18:32)
[2020-04-21 19:12] VITALS: BP 115/79; PULSE 88; RESP 18; TEMP 36.7; O2SAT 95
[2020-04-21 20:42] LABS: Glucose Point of Care 134 mg/dL (70-110)
--- NOTE | 2020-04-21 21:32 | PC.NURSE ---
Decreased drain output from day shift, flushed drain per orders with 3cc of NS per Dr. Bradford orders, drain flushed easily. Patient tolerated well. Tubing cleared of previous drainage
[2020-04-22] VITALS (7 sets, daily range): BP systolic 109–142; BP diastolic 68–89; PULSE 74–108; RESP 18–20; TEMP 36.4–36.8; O2SAT 93–95
[2020-04-22] MEDS: morphine 4 mg/mL SDV 1 mL 2 MG IVP (00:47)
--- NOTE | 2020-04-22 03:39 | PC.NURSE ---
ADDENDUM FOR 04/21/2020 APPROXIMATELY 0230; THE PATIENT WOKE WITH THE URGE TO HAVE A BOWEL MOVEMENT AND COULDN'T FIND HIS CALL LIGHT. HE DISCONNECTED HIS IV HIMSELF AND BEGAN BLEEDING FROM THE SITE. THE PATIENT MADE IT TO THE RESTROOM AND PULLED THE EMERGENCY CORD. THERE WAS BLOOD ON THE FLOOR AND THE PATIENT'S HAND. HE STATED HE COULDN'T WAIT. HE STATED HE THOUGHT HE MAY BEEN HALLUCINATING, BUT WHEN QUESTIONED FURTHER IT SEEMED MORE HE WAS SYMPTOMATIC TO THE BLOOD LOSS AND QUICK MOVEMENT OF GOING TO THE RESTROOM. WHEN DR. KOEHLER CAME IN HE WAS NOTIFIED OF THE INCIDENT. NO FEVERS WERE RECORDED, BLOOD PRESSURES WERE WNL, AND BLOOD GLUCOSE WERE WNL. HE EXPRESSED NO CONCERN.
--- NOTE | 2020-04-22 03:46 | PC.NURSE ---
THE PATIENT HAS HAD URINE OUTPUT OF 1350 ML AT THIS POINT IN THE SHIFT. THE BACK DRAIN HAS HAD MINIMAL DRAINAGE. TOTAL FOR THE SHIFT THIS FAR WAS 15 ML. THE CONTENTS ARE RED AND SLIGHTLY THICK. THE PATIENT IS NOTED TO BE RED AND WARM AROUND THE DRAIN SITE, THE AREA WAS MARKED AND THERE HAS BEEN MINIMAL SPREAD. THE PATIENT DID REPORT PAIN TO THE DRAIN SITE AND GOT PRN MORPHINE. PAIN DENIED WHEN REASSESSED.
[2020-04-22 06:36] LABS: Glucose Point of Care 101 mg/dL (70-110)
[2020-04-22] MEDS: lactobacillus 1 Tablet 1 TAB PO (08:03)
[2020-04-22] MEDS: oxybutynin 5 mg Tablet PO ×2 (08:03→17:37)
[2020-04-22] MEDS: prednisoLONE 1% Op Susp 5 mL Btl 1 DROP EYE-LEFT (08:03)
--- NOTE | 2020-04-22 08:41 | PM.PN ---
Subjective Subjective: Interval history: Urology follow-up He has been afebrile with vital signs stable over the last 24 hours States that he feels much better today. Has an appetite for the first time in weeks. Decreased nausea feeling. Was having some discomfort around the tube with some increased erythema and tenderness but no obvious fluctuance on exam today. Seems in much better spirits. There is some generalized erythema in the area of the percutaneous tube placement. We will plan on removing the Lane catheter today given the good results on CT scan yesterday showing no evidence of significant persistent fluid collection in the subcapsular space and no evidence of persistent hydronephrosis. CBC is pending at this time. Vitals/I&O/Wt Last Vital Signs Temp 97.5 F L 04/22/20 07:32 Pulse 86 04/22/20 07:32 Resp 20 H 04/22/20 07:32 BP 117/79 04/22/20 07:32 Pulse Ox 94 04/22/20 07:32 04/21/20 04/22/20 04/22/20 22:59 06:59 14:59 Intake Total 1050 / 2020 120 / 2140 Output Total 725 / 725 565 / 1290 Balance 325 / 1295 -445 / 850 Weight last 48 hrs Weight 353 lb 3.2 oz Weight 244 lb 9.6 oz Weight 244 lb Physical Exam Const: COMMON NORMALS: no acute distress, alert and well nourished GENERAL APPEARANCE: well kempt and well developed ORIENTATION/CONSCIOUSNESS: not confused Neck/C-Spine: GENERAL: Yes normal visual inspection Resp: COMMON NORMALS: normal respiratory effort EFFORT & INSPECTION: No labored and No Actively coughing Back/Pelvis: OTHER: The tube site itself looks good. There is some generalized erythema and tenderness several inches away from the tube entry point. No fluctuance. Neuro: COMMON NORMALS: no focal motor deficits SENSORIUM/ORIENTATION: Yes alert Psych: COMMON NORMALS: mental status grossly normal APPEARANCE: Yes grossly normal and Yes well kempt ATTITUDE: Yes calm and Yes engaged Urinary Catheter Management^: Lane: Cath Placed During This Visit: yes Reason for Continuing Indwelling Catheter: Acute Urinary Retention or Obstruction Urinary Catheter Date of Insertion: 04/19/20 Urinary Catheter Time of Insertion: 14:20 Data : 04/23/20 01:36 04/22/20 10:52 Micro: Microbiology 04/21/20 21:17 C.difficile Toxin B Gene (PCR) - Final Stool - Stool Aspirate 04/21/20 10:45 Stool Lactoferrin - Final Stool Enteric Pathogens (PCR) - Final C.difficile Toxin B Gene (PCR) - Final Occult Blood (FIT) - Final 04/18/20 10:28 Urine Culture - Final Urine,Clean Catch Enterococcus faecalis Enterococcus avium 04/18/20 16:00 Body Fluid Culture - Preliminary Other Source Escherichia coli Enterococcus species A&P Assessment and plan (1) Enterococcus UTI: Status: Acute (2) Renal abscess, right: Status: Acute (3) Right ureteral calculus: Status: Acute Attestations Medical Necessity Statement*: Still requiring IV antibiotics. Not a good candidate for convalescence at home at this point. Coding Level of Care Code Acute Hunter Guide for [facility] Fwd Exam Detailed Diagnoses Enterococcus UTI N39.0; B95.2 Renal abscess, right N15.1 Right ureteral calculus N20.1
--- NOTE | 2020-04-22 10:12 | P.PN_ITS ---
Subjective Subjective: Interval history: No acute events overnight. Patient has remained afebrile, hemodynamically stable. Today morning examination he is looking a lot better. Denies of any pain. He is not walking much. Encouraged him again today to walk around more. Vitals noted. Labs still awaited. Medications: Reviewed: Yes Vitals/I&O/Wt Last Vital Signs Temp 97.5 F L 04/22/20 07:32 Pulse 86 04/22/20 07:32 Resp 20 H 04/22/20 07:32 BP 117/79 04/22/20 07:32 Pulse Ox 94 04/22/20 07:32 04/21/20 04/22/20 04/22/20 22:59 06:59 14:59 Intake Total 1050 / 2020 120 / 2140 240 / 240 Output Total 725 / 725 565 / 1290 Balance 325 / 1295 -445 / 850 240 / 240 Weight last 48 hrs Weight 160.209 kg Weight 110.949 kg Weight 110.677 kg Physical Exam Const: COMMON NORMALS: patient oriented x3 and alert GENERAL APPEARANCE: cooperative ORIENTATION/CONSCIOUSNESS: Yes awake, Yes oriented to person, Yes oriented to place and Yes oriented to time HENMT: COMMON NORMALS: normocephalic and atraumatic HEAD & SCALP: normocephalic and atraumatic Eye: COMMON NORMALS: Equal, round and reactive pupils present PUPIL: Yes Equal, round and reactive pupils present Neck/C-Spine: COMMON NORMALS: supple GENERAL: Yes normal visual inspection Resp: COMMON NORMALS: normal respiratory effort and clear to auscultation bilaterally EFFORT & INSPECTION: Yes able to speak in complete sentences AUSCULTATION: clear to auscultation bilaterally, no rhonchi and no wheezes Cardio: COMMON NORMALS: regular rhythm and No murmurs present (Cardio) RATE: tachycardic RHYTHM: regular rhythm GI: COMMON NORMALS: Soft to palpation and non-tender INSPECTION: No abdominal distension AUSCULTATION: Yes normoactive bowel sounds PALPATION: Yes Soft to palpation : COMMON NORMALS: Yes no CVA tenderness BLADDER/KIDNEY EXAM: Yes no CVA tenderness OTHER: Patient has a right-sided perinephric drain in place with bloody drainage Back/Pelvis: COMMON NORMALS: no CVA tenderness Extremity: COMMON NORMALS: no calf tenderness NARRATIVE EXTREMITY EXAM: Chronic nonpitting edema in the lower extremities bilaterally, negative Homans sign bilaterally, chronic venous stasis in the lower extremities bilaterally Neuro: COMMON NORMALS: patient oriented x3, CN's II-XII intact bilaterally, moves all extremities and no focal motor deficits SENSORIUM/ORIENTATION: Yes alert, Yes oriented to person, Yes oriented to place and Yes oriented to time SPEECH: speech normal Psych: COMMON NORMALS: mental status grossly normal and cooperative Skin: COMMON NORMALS: no rashes or lesions noted GENERAL SKIN EXAM: no rashes or lesions noted Urinary Catheter Management^: Lane: Cath Placed During This Visit: yes Reason for Continuing Indwelling Catheter: Acute Urinary Retention or Obst ruction Urinary Catheter Date of Insertion: 04/19/20 Urinary Catheter Time of Insertion: 14:20 Data : 04/21/20 05:16 04/21/20 05:16 Micro: Microbiology 04/21/20 21:17 C.difficile Toxin B Gene (PCR) - Final Stool - Stool Aspirate 04/21/20 10:45 Stool Lactoferrin - Final Stool Enteric Pathogens (PCR) - Final C.difficile Toxin B Gene (PCR) - Final Occult Blood (FIT) - Final 04/18/20 10:28 Urine Culture - Final Urine,Clean Catch Enterococcus faecalis Enterococcus avium 04/18/20 16:00 Body Fluid Culture - Preliminary Other Source Escherichia coli Enterococcus species A&P Assessment and plan (1) Renal abscess, right: Status: Acute (2) Right ureteral calculus: Right UPJ calculus measuring 9 mm Post right ureteral stent placement on April 19. Status: Acute (3) Pyelonephritis: Status: Acute (4) Enterococcus UTI: Status: Acute (5) Controlled diabetes mellitus with hyperglycemia, without long-term current use of insulin: Patient is on weekly Trulicity injection Placed on sliding scale insulin as needed Status: Chronic (6) Hypertriglyceridemia: Status: Chronic (7) Hypertension: Status: Acute Additional A&P Information Sepsis secondary to concern for perinephric abscess on the right: Continue with broad-spectrum antibiotics, continue with IV fluids, cultures remain pending. Renal abscess: Post CT-guided nephrostomy tube placement on April 18, 2020. Post right ureteral stent placement on April 19, 2020. Culture results from urine growing enterococcus while from the abscess growing E. coli. Patient's white count elevated yesterday no results today. Patient states today he has a history of C. difficile a year ago and having some diarrhea today so we will check stool studies for C. difficile. C. difficile negative twice yesterday. Labs still awaited today. Patient looking a lot better today. For now we will continue with the same antibiotics. Continue with Vanco and Zosyn for now. As per the culture results E. coli is sensitive to levofloxacin. Enterococcus faecalis and EVM both are sensitive to levofloxacin, linezolid, vancomycin. For now we will continue on vancomycin and Zosyn. The patient's white count is trending down has remained afebrile till tomorrow will de-escalate antibiotics. Discussed with Dr. Bradford. As per Dr. Bradford eventual plan is for patient to be discharged with nephrostomy tube as patient still has the kidney stone and then possibly lithotripsy as an outpatient once infection and inflammation is reduced. Most likely patient will be discharged on antibiotics. Plan to DC Lane today. Type 2 diabetes mellitus: Treat with insulin sliding scale. Carb consistent diet. WEI: Baseline creatinine normal. Creatinine 1.3 yesterday. We will continue to monitor. Continue to hold off on lisinopril. Hypertension: Blood pressure well controlled. Goal blood pressure 140/90 mmHg. Continue to hold lisinopril due to acute kidney injury secondary to above. If required can give patient amlodipine. Chronic cough: Likely secondary to lisinopril and postnasal drainage DVT prophylaxis: SCDs, no pharmacologic prophylaxis due to concern for anticipated surgery Diet: Carb consistent diet CODE STATUS: Full code Encouraged to ambulate today. Attestations Medical Necessity Statement*: Renal abscess. Time Spent in Patient Care: Greater than 35 minutes (>than 50% of time spent in counselling and/or direct pt care on unit) . Coding Level of Care Code Acute Rope Twisting Machine Operator for g Fwd Exam Comprehensive Diagnoses Renal abscess, right N15.1 Right ureteral calculus N20.1 Pyelonephritis N12 Enterococcus UTI N39.0; B95.2 Controlled diabetes mellitus with hyperglycemia, without long-term current use of insulin E11.65 Hypertriglyceridemia E78.1 Hypertension I10
[2020-04-22 11:02] LABS: Basophils # 0.1 10^3/uL (0.0-0.1); Basophils % 0.8 %; Eosinophils # 0.2 10^3/uL (0.0-0.8); Eosinophils % 1.3 %; Hematocrit 43.2 % (42.0-52.0); Hemoglobin 13.8 g/dL (11.7-16.6); Lymphocytes # 1.3 10^3/uL (0.8-4.8); Lymphocytes % 10.5 %; Mean Corpuscular HGB Conc 31.9 g/dL (30.0-36.0); Mean Corpuscular Hemoglobin 30.2 pg (28.0-34.0); Mean Corpuscular Volume 94.5 fL (80-94); Monocytes # 0.9 10^3/uL (0.2-0.9); Monocytes % 7.1 %; Neutrophils # 9.4 10^3/uL (1.8-7.7); Neutrophils % 76.8 %; Nucleated Red Blood Cells % 0 %; Platelet Count 263 10^3/cmm (130-400); Red Blood Count 4.57 10^6/uL (4.1-5.3); Red Cell Distribution Width 13.2 % (12.1-15.1); White Blood Count 12.3 10^3/uL (4.0-10.0)
[2020-04-22 11:34] LABS: Alanine Aminotransferase 14 U/L (0-41); Albumin Level 2.5 g/dL (3.5-5.2); Alkaline Phosphatase 120 IU/L (40-130); Anion Gap 17.1 (5-19); Aspartate Amino Transferase 42 U/L (0-40); Blood Urea Nitrogen 24 mg/dL (6-20); Calcium 8.3 mg/dL (8.5-10.5); Carbon Dioxide 22 mmol/L (22-29); Chloride 100 mmol/L (98-107); Glomerular Filtration Rate 56.5 mL/min (90-130); Glucose 154 mg/dL (65-115); Osmolality Calculated 280 mOsm/kg (285-295); Potassium 4.1 mmol/L (3.5-5.1); Sodium 135 mmol/L (136-145); Total Bilirubin 0.7 mg/dL (0.15-1.2); Total Protein 6.5 g/dL (6.6-8.7)
[2020-04-22] MEDS: piperacillin-tazobactam 3.375 GM in sodium chloride 0.9% (plus) 50 ML IV ×2 (11:39→20:47)
[2020-04-22 12:10] LABS: Glucose Point of Care 143 mg/dL (70-110)
[2020-04-22] MEDS: sodium chloride 0.9% 1,000 ML 75 ML IV (13:16)
[2020-04-22 16:35] LABS: Glucose Point of Care 177 mg/dL (70-110)
[2020-04-22 21:07] LABS: Glucose Point of Care 132 mg/dL (70-110)
[2020-04-23] VITALS (7 sets, daily range): BP systolic 99–122; BP diastolic 65–85; PULSE 70–94; RESP 16–19; TEMP 36.5–37.4; O2SAT 92–97
[2020-04-23 01:44] LABS: Basophils # 0.1 10^3/uL (0.0-0.1); Basophils % 0.9 %; Eosinophils # 0.1 10^3/uL (0.0-0.8); Eosinophils % 1.2 %; Hematocrit 43.6 % (42.0-52.0); Hemoglobin 13.7 g/dL (11.7-16.6); Lymphocytes # 1.3 10^3/uL (0.8-4.8); Lymphocytes % 10.9 %; Mean Corpuscular HGB Conc 31.4 g/dL (30.0-36.0); Mean Corpuscular Hemoglobin 31.1 pg (28.0-34.0); Mean Corpuscular Volume 99.1 fL (80-94); Mean Platelet Volume 9.7 fL (7.4-10.4); Monocytes % 8.2 %; Neutrophils # 9.3 10^3/uL (1.8-7.7); Neutrophils % 76.3 %; Nucleated Red Blood Cells % 0 %; Platelet Count 220 10^3/cmm (130-400); Red Cell Distribution Width 13.2 % (12.1-15.1); White Blood Count 12.1 10^3/uL (4.0-10.0)
[2020-04-23 02:07] LABS: Vancomycin Trough < 4.0 ug/mL (10-15)
[2020-04-23] MEDS: sodium chloride 0.9% 1,000 ML 75 ML IV (02:15)
[2020-04-23] MEDS: morphine 4 mg/mL SDV 1 mL 2 MG IVP (02:40)
--- NOTE | 2020-04-23 02:53 | PC.NURSE ---
Reported vanco trough to Marine in pharmacy, she states to hang vancomycin as ordered
[2020-04-23] MEDS: piperacillin-tazobactam 3.375 GM in sodium chloride 0.9% (plus) 50 ML IV (04:48)
[2020-04-23 06:35] LABS: Glucose Point of Care 139 mg/dL (70-110)
[2020-04-23] MEDS: lactobacillus 1 Tablet 1 TAB PO (08:30)
[2020-04-23] MEDS: oxybutynin 5 mg Tablet PO ×2 (08:30→18:10)
[2020-04-23] MEDS: prednisoLONE 1% Op Susp 5 mL Btl 1 DROP EYE-LEFT (08:35)
--- NOTE | 2020-04-23 11:14 | P.PN_ITS ---
Subjective Subjective: Interval history: No acute events overnight. Patient has remained afebrile, hemodynamically stable. Today morning examination he is looking a lot better. Denies of any pain. He walked well today and yesterday on the floor. Vitals noted. Labs still awaited. Medications: Reviewed: Yes Vitals/I&O/Wt Last Vital Signs Temp 97.7 F 04/23/20 07:26 Pulse 82 04/23/20 07:26 Resp 16 04/23/20 07:26 BP 118/83 04/23/20 07:26 Pulse Ox 96 04/23/20 07:26 04/22/20 04/23/20 04/23/20 22:59 06:59 14:59 Intake Total 950 / 2930 1303.75 / 4233.75 236 / 236 Output Total 1250 / 1250 / 2010 350 / 350 Balance -300 / 1680 543.75 / 2223.75 -114 / -114 Weight last 48 hrs Weight 161.479 kg Weight 160.209 kg Physical Exam Const: COMMON NORMALS: patient oriented x3 and alert GENERAL APPEARANCE: cooperative ORIENTATION/CONSCIOUSNESS: Yes awake, Yes oriented to person, Yes oriented to place and Yes oriented to time HENMT: COMMON NORMALS: normocephalic and atraumatic HEAD & SCALP: normocephalic and atraumatic Eye: COMMON NORMALS: Equal, round and reactive pupils present PUPIL: Yes Equal, round and reactive pupils present Neck/C-Spine: COMMON NORMALS: supple GENERAL: Yes normal visual inspection Resp: COMMON NORMALS: normal respiratory effort and clear to auscultation bilaterally EFFORT & INSPECTION: Yes able to speak in complete sentences AUSCULTATION: clear to auscultation bilaterally, no rhonchi and no wheezes Cardio: COMMON NORMALS: regular rhythm and No murmurs present (Cardio) RATE: tachycardic RHYTHM: regular rhythm GI: COMMON NORMALS: Soft to palpation and non-tender INSPECTION: No abdominal distension AUSCULTATION: Yes normoactive bowel sounds PALPATION: Yes Soft to palpation : COMMON NORMALS: Yes no CVA tenderness BLADDER/KIDNEY EXAM: Yes no CVA tenderness OTHER: Patient has a right-sided perinephric drain in place with bloody drainage Back/Pelvis: COMMON NORMALS: no CVA tenderness Extremity: COMMON NORMALS: no calf tenderness NARRATIVE EXTREMITY EXAM: Chronic nonpitting edema in the lower extremities bilaterally, negative Homans sign bilaterally, chronic venous stasis in the lower extremities bilaterally Neuro: COMMON NORMALS: patient oriented x3, CN's II-XII intact bilaterally, moves all extremities and no focal motor deficits SENSORIUM/ORIENTATION: Yes alert, Yes oriented to person, Yes oriented to place and Yes oriented to time SPEECH: speech normal Psych: COMMON NORMALS: mental status grossly normal and cooperative Skin: COMMON NORMALS: no rashes or lesions noted GENERAL SKIN EXAM: no rashes or lesions noted Urinary Catheter Management^: Lane: Cath Placed During This Visit: yes, but has since been removed by the nurse Reason for Continuing Indwelling Catheter: Acute Urinary Retention or Obstruction Urinary Catheter Date of Insertion: 04/19/20 Urinary Catheter Time of Insertion: 14:20 Date Urinary Catheter Removed: 04/22/20 Time Urinary Catheter Discontinued: 13:21 Data : 04/23/20 01:36 04/22/20 10:52 Micro: Microbiology 04/18/20 10:25 Blood Culture - Final Blood NO GROWTH AFTER 5 DAYS 04/18/20 10:30 Blood Culture - Final Blood NO GROWTH AFTER 5 DAYS 04/23/20 05:00 Gram Stain - Final Other Source 04/18/20 16:00 Body Fluid Culture - Final Other Source Escherichia coli Enterococcus faecalis 04/21/20 10:45 Stool Lactoferrin - Final Stool Enteric Pathogens (PCR) - Final Parasite Antigen Panel - Final C.difficile Toxin B Gene (PCR) - Final Occult Blood (FIT) - Final A&P Assessment and plan (1) Renal abscess, right: Status: Acute (2) Right ureteral calculus: Right UPJ calculus measuring 9 mm Post right ureteral stent placement on April 19. Status: Acute (3) Pyelonephritis: Status: Acute (4) Enterococcus UTI: Status: Acute (5) Controlled diabetes mellitus with hyperglycemia, without long-term current use of insulin: Patient is on weekly Trulicity injection Placed on sliding scale insulin as needed Status: Chronic (6) Hypertriglyceridemia: Status: Chronic (7) Hypertension: Status: Acute Additional A&P Information Sepsis secondary to concern for perinephric abscess on the right: Renal abscess: Post CT-guided nephrostomy tube placement on April 18, 2020. Post right ureteral stent placement on April 19, 2020. Culture results from urine growing enterococcus while from the abscess growing E. coli. Patient states today he has a history of C. difficile a year ago and having some diarrhea today so we will check stool studies for C. difficile. C. difficile negative twice yesterday. Leukocytosis improved. As patient has remained afebrile and leukocytosis has improved and remained stable we will start him on oral levofloxacin and Augmentin which will cover both for enterococcus and E. coli as per the culture sensitivities. Will monitor patient for next 24 hours. If patient does well can plan to discharge him tomorrow on levofloxacin and Aug mentin. Patient will go with nephrostomy tube. Case discussed with Dr. Bradford. Type 2 diabetes mellitus: Treat with insulin sliding scale. Carb consistent diet. WEI: Baseline creatinine normal. Creatinine 1.3 yesterday. We will continue to monitor. Continue to hold off on lisinopril. Hypertension: Blood pressure well controlled. Goal blood pressure 140/90 mmHg. Continue to hold lisinopril due to acute kidney injury secondary to above. If required can give patient amlodipine. Chronic cough: Likely secondary to lisinopril and postnasal drainage DVT prophylaxis: SCDs, heparin 5000 twice daily Diet: Carb consistent diet CODE STATUS: Full code Encouraged to ambulate today. Attestations Medical Necessity Statement*: Sepsis due to renal abscess, obstructive uropathy Time Spent in Patient Care: Greater than 35 minutes (>than 50% of time spent in counselling and/or direct pt care on unit) . Coding Level of Care Code Acute Account Executive Software Sales for g Fwd Exam Comprehensive Diagnoses Renal abscess, right N15.1 Right ureteral calculus N20.1 Pyelonephritis N12 Enterococcus UTI N39.0; B95.2 Controlled diabetes mellitus with hyperglycemia, without long-term current use of insulin E11.65 Hypertriglyceridemia E78.1 Hypertension I10
[2020-04-23 11:40] LABS: Glucose Point of Care 138 mg/dL (70-110)
[2020-04-23 14:41] LABS: Vancomycin Trough 33.6 ug/mL (10-15)
--- NOTE | 2020-04-23 16:58 | P.PN_ITS ---
Subjective Subjective: Interval history: Continues to feel better. White count is stable at 12. Appetite is increasing. Overall sense of wellbeing and improvement. Reviewed with Dr. Lehman today Will be switching to Levaquin with hopes of continuing oral Levaquin rather than IV antibiotics. Reviewed with him the remaining sequence of events that needs to happen before this is over including treatment of the stone most likely with endoscopy, complete resolution of the infection, removal of the percutaneous tube with close follow-up imaging Medications: Reviewed: Yes Vitals/I&O/Wt Last Vital Signs Temp 99.4 F 04/23/20 12:00 Pulse 93 04/23/20 12:00 Resp 16 04/23/20 12:00 BP 120/84 04/23/20 12:00 Pulse Ox 92 04/23/20 12:00 04/23/20 04/23/20 04/23/20 06:59 14:59 22:59 Intake Total 1303.75 / 4233.75 236 / 236 Output Total / 2010 350 / 350 350 / 700 Balance 543.75 / 2223.75 -114 / -114 -350 / -464 Weight last 48 hrs Weight 356 lb Weight 353 lb 3.2 oz Physical Exam Const: COMMON NORMALS: no acute distress, alert and well nourished GENERAL APPEARANCE: well kempt and well developed ORIENTATION/CONSCIOUSNESS: not confused HENMT: COMMON NORMALS: normocephalic and atraumatic HEAD & SCALP: normocephalic and atraumatic Eye: COMMON NORMALS: conjunctivae normal and no scleral icterus CONJUNCTIVA: Yes conjunctivae normal Neck/C-Spine: COMMON NORMALS: full ROM GENERAL: Yes normal visual inspection Resp: EFFORT & INSPECTION: No labored and No Actively coughing Extremity: COMMON NORMALS: no clubbing, cyanosis or edema Neuro: SENSORIUM/ORIENTATION: Yes alert Psych: COMMON NORMALS: mental status grossly normal APPEARANCE: Yes grossly normal and Yes well kempt ATTITUDE: Yes calm and Yes engaged Skin: COMMON NORMALS: no rashes or lesions noted and no jaundice GENERAL SK IN EXAM: no rashes or lesions noted Urinary Catheter Management^: Lane: Cath Placed During This Visit: yes, but has since been removed by the nurse Reason for Continuing Indwelling Catheter: Acute Urinary Retention or Obstruction Urinary Catheter Date of Insertion: 04/19/20 Urinary Catheter Time of Insertion: 14:20 Date Urinary Catheter Removed: 04/22/20 Time Urinary Catheter Discontinued: 13:21 Data : 04/23/20 01:36 04/22/20 10:52 Micro: Microbiology 04/18/20 10:25 Blood Culture - Final Blood NO GROWTH AFTER 5 DAYS 04/18/20 10:30 Blood Culture - Final Blood NO GROWTH AFTER 5 DAYS 04/23/20 05:00 Gram Stain - Final Other Source 04/18/20 16:00 Body Fluid Culture - Final Other Source Escherichia coli Enterococcus faecalis 04/21/20 10:45 Stool Lactoferrin - Final Stool Enteric Pathogens (PCR) - Final Parasite Antigen Panel - Final C.difficile Toxin B Gene (PCR) - Final Occult Blood (FIT) - Final A&P Assessment and plan (1) Pyelonephritis: Status: Acute (2) Right ureteral calculus: Status: Acute (3) Renal abscess, right: Status: Acute Attestations 2 Medical Necessity Statement*: Continues to improve. Needs close observation with switching to oral antibiotics. Coding Level of Care Code Acute New Client Banking Services Clerk for [facility] Fwd Diagnoses Pyelonephritis N12 Right ureteral calculus N20.1 Renal abscess, right N15.1
[2020-04-23 17:14] LABS: Glucose Point of Care 163 mg/dL (70-110)
[2020-04-23] MEDS: amoxicillin-clav 875-125 mg Tablet 1 TAB PO (18:10)
[2020-04-23 22:18] LABS: Glucose Point of Care 115 mg/dL (70-110)
[2020-04-24] VITALS: BP 112/69; PULSE 90; RESP 18; TEMP 36.9; O2SAT 92
[2020-04-24 04:00] VITALS: BP 112/78; PULSE 87; RESP 18; TEMP 36.7; O2SAT 94
[2020-04-24 04:32] LABS: Basophils # 0.1 10^3/uL (0.0-0.1); Basophils % 0.7 %; Eosinophils # 0.1 10^3/uL (0.0-0.8); Eosinophils % 0.9 %; Hematocrit 40.8 % (42.0-52.0); Hemoglobin 13.2 g/dL (11.7-16.6); Lymphocytes # 1.2 10^3/uL (0.8-4.8); Lymphocytes % 10.4 %; Mean Corpuscular HGB Conc 32.4 g/dL (30.0-36.0); Mean Corpuscular Hemoglobin 30.9 pg (28.0-34.0); Mean Corpuscular Volume 95.6 fL (80-94); Mean Platelet Volume 9.7 fL (7.4-10.4); Monocytes # 0.8 10^3/uL (0.2-0.9); Monocytes % 7.2 %; Neutrophils # 9.2 10^3/uL (1.8-7.7); Neutrophils % 78.6 %; Nucleated Red Blood Cells % 0 %; Platelet Count 201 10^3/cmm (130-400); Red Blood Count 4.27 10^6/uL (4.1-5.3); Red Cell Distribution Width 13.3 % (12.1-15.1); White Blood Count 11.6 10^3/uL (4.0-10.0)
[2020-04-24 05:19] LABS: Alanine Aminotransferase 19 U/L (0-41); Albumin Level 2.2 g/dL (3.5-5.2); Alkaline Phosphatase 128 IU/L (40-130); Anion Gap 14.1 (5-19); Aspartate Amino Transferase 52 U/L (0-40); Blood Urea Nitrogen 20 mg/dL (6-20); Calcium 8.3 mg/dL (8.5-10.5); Carbon Dioxide 21 mmol/L (22-29); Chloride 105 mmol/L (98-107); Globulin 4.3 g/dL (1.3-4.6); Glomerular Filtration Rate 56.5 mL/min (90-130); Glucose 136 mg/dL (65-115); Osmolality Calculated 281 mOsm/kg (285-295); Potassium 4.1 mmol/L (3.5-5.1); Sodium 136 mmol/L (136-145); Total Bilirubin 0.6 mg/dL (0.15-1.2); Total Protein 6.5 g/dL (6.6-8.7)
[2020-04-24] MEDS: levoFLOXacin 750 mg Tablet PO (05:38)
[2020-04-24 06:54] LABS: Glucose Point of Care 158 mg/dL (70-110)
--- NOTE | 2020-04-24 07:31 | P.PN_ITS ---
Subjective Subjective: Interval history: Urology follow-up Afebrile vital signs stable. Continues to improve with overall wellbeing. Improving strength. Has had some drainage around the percutaneous tube. On physical findings there is some purulence around the tube. I have the nurse cleaned it up and redressed. Also irrigate the tube just to confirm that the tube is functioning well. No evidence of systemic infection increase. I will plan on seeing him back after discharge in my office on Thursday this week. We will keep the percutaneous tube in until the stone is completely treated. Tentative plan will be for next week to do endoscopy and laser lithotripsy of the stone. Vitals/I&O/Wt Last Vital Signs Temp 98.1 F 04/24/20 04:00 Pulse 87 04/24/20 04:00 Resp 18 04/24/20 04:00 BP 112/78 04/24/20 04:00 Pulse Ox 94 04/24/20 04:00 04/23/20 04/24/20 04/24/20 22:59 06:59 14:59 Intake Total 2248 / 2484 Output Total 950 / 1300 900 / 2200 Balance 1298 / 1184 -900 / 284 Weight last 48 hrs Weight 356 lb Physical Exam Const: COMMON NORMALS: no acute distress, alert and well nourished GENERAL APPEARANCE: well kempt and well developed ORIENTATION/CONSCIOUSNESS: not confused HENMT: COMMON NORMALS: normocephalic and atraumatic HEAD & SCALP: normocephalic and atraumatic Eye: COMMON NORMALS: conjunctivae normal and no scleral icterus CONJUNCTIVA: Yes conjunctivae normal Neck/C-Spine: COMMON NORMALS: full ROM GENERAL: Yes normal visual inspection Resp: COMMON NORMALS: normal respiratory effort EFFORT & INSPECTION: No labored and No Actively coughing Neuro: COMMON NORMALS: no focal motor deficits SENSORIUM/ORIENTATION: Yes alert Psych: COMMON NORMALS: mental status grossly normal APPEARANCE: Yes grossly normal and Yes well kempt ATTITUDE: Yes calm and Yes engaged Urinary Catheter Management^: Lane: Cath Placed During This Visit: yes, but has since been removed by the nurse Reason for Continuing Indwelling Catheter: Acute Urinary Retention or Obstruction Urinary Catheter Date of Insertion: 04/19/20 Urinary Catheter Time of Insertion: 14:20 Date Urinary Catheter Removed: 04/22/20 Time Urinary Catheter Discontinued: 13:21 Data : 04/24/20 04:10 04/24/20 04:10 Micro: Microbiology 04/18/20 10:25 Blood Culture - Final Blood NO GROWTH AFTER 5 DAYS 04/18/20 10:30 Blood Culture - Final Blood NO GROWTH AFTER 5 DAYS 04/23/20 05:00 Gram Stain - Final Other Source A&P Assessment and plan (1) Right ureteral calculus: Tentatively plan for endoscopic treatment of the stone next week. Status: Acute (2) Renal abscess, right: Maintain percutaneous tube. Will reimage before removing. Status: Acute Attestations Medical Necessity Statement*: See attending Coding Level of Care Code Acute Floral Designer Salesperson for [facility] [place] Diagnoses Right ureteral calculus N20.1 Renal abscess, right N15.1
[2020-04-24 07:36] VITALS: BP 124/85; PULSE 86; RESP 20; TEMP 36.4; O2SAT 96
[2020-04-24] MEDS: oxybutynin 5 mg Tablet PO (08:36)
[2020-04-24] MEDS: lactobacillus 1 Tablet 1 TAB PO (08:36)
[2020-04-24] MEDS: amoxicillin-clav 875-125 mg Tablet 1 TAB PO (08:36)
[2020-04-24] MEDS: prednisoLONE 1% Op Susp 5 mL Btl 1 DROP EYE-LEFT (08:36)
--- NOTE | 2020-04-24 10:30 | P.DS_ITS ---
Discharge Providers Date of Admission: 04/18/20 12:17 Date of Discharge: April 24, 2020 Attending Provider at Admission: Sarah Kunz DO Attending Provider at Discharge: Ramon Brambila MD Primary Care Provider: GISELE Gupta Diagnoses at Discharge Discharge Diagnosis (1) Right ureteral calculus: Status: Acute (2) Renal abscess, right: Status: Acute (3) Hypertension: Status: Acute (4) Pyelonephritis: Status: Acute (5) Controlled diabetes mellitus with hyperglycemia, without long-term current use of insulin: Status: Chronic Reason for Visit Reason for Visit: DIRECT ADMIT Hospital Course Discharge Summary: Olegario Ortiz is a 59 year old male with a past medical history of diabetes, C. difficile last year and history of nephrolithiasis as well as hypertension that presented to the emergency department from urology office due to concern for fever and concern for right perinephric fluid collection. Patient reports having been sick off and on for the past 4 weeks. He stated that he had a tick exposure at that time due to concern for tick fever he was prescribed doxycycline he completed the 10-day course and reported that he began to feel somewhat better. He reported that over the past 2 weeks he has began to gradually decline. Stated that 2 weeks ago on a Thursday he passed a kidney stone had some hematuria and dysuria at that time but that is since improved. He continues to have hematuria. Patient reports continued fevers daily of 101-102 every afternoon. He denies any exposure to anyone with COVID- 19, denies any public exposures and wears a mask in public every day. He reports a chronic cough and chronic postnasal drainage that is been worse with fever, denies any shortness of breath, no myalgias. CT scan performed admission was consistent finding of right subcapsular fluid collection 10 x 13 cm with obstructing right UPJ calculus measuring 9 mm. Urology was consulted and patient underwent CT-guided drain placement on April 18, 2020. Patient underwent cystoscopy with urethral dilatation, right retrograde ureteropyelogram, right ureteral stent placement on April 19, 2020. Patient's culture from the abscess came back positive for E. coli and Enterobacter avium and faecalis. Patient was covered with IV antibiotics with vancomycin and Zosyn. Patient's leukocytosis trended down slowly. Due to concern for persistent leukocytosis C. difficile was tested negative twice. A repeat CT scan was done on April 21, 2020 which is consistent with mild improvement in perinephric fluid collection measuring now 2.2 cm in transverse dimension. Patient's antibiotic was changed as per the culture sensitivities to levofloxacin and Augmentin and he was monitored for 1 day. Patient remained afebrile for more than 4 days. Patient's blood pressure remained stable without the use of antihypertensive. As patient remained hemodynamically stable and afebrile he is been discharged on levofloxacin and Augmentin which he needs to take till he has the nephrostomy tube in place. He is to follow-up with Dr. Tiwari on coming Monday April 27, 2020 with tentative plan for patient to undergo endoscopy and laser lithotripsy for the stone next week. Physical Exam Const: COMMON NORMALS: patient oriented x3 and alert GENERAL APPEARANCE: cooperative ORIENTATION/CONSCIOUSNESS: Yes awake, Yes oriented to person, Yes oriented to place and Yes oriented to time HENMT: COMMON NORMALS: normocephalic and atraumatic HEAD & SCALP: normocephalic and atraumatic Eye: COMMON NORMALS: Equal, round and reactive pupils present PUPIL: Yes Equal, round and reactive pupils present Neck/C-Spine: COMMON NORMALS: supple GENERAL: Yes normal visual inspection Resp: COMMON NORMALS: normal respiratory effort and clear to auscultation bilaterally EFFORT & INSPECTION: Yes able to speak in complete sentences AUSCULTATION: clear to auscultation bilaterally, no rhonchi and no wheezes Cardio: COMMON NORMALS: regular rhythm and No murmurs present (Cardio) RATE: tachycardic RHYTHM: regular rhythm GI: COMMON NORMALS: Soft to palpation and non-tender INSPECTION: No abdominal distension AUSCULTATION: Yes normoactive bowel sounds PALPATION: Yes Soft to palpation : COMMON NORMALS: Yes no CVA tenderness BLADDER/KIDNEY EXAM: Yes no CVA tenderness OTHER: Patient has a right-sided perinephric drain in place with bloody drainage Back/Pelvis: COMMON NORMALS: no CVA tenderness Extremity: COMMON NORMALS: no calf tenderness NARRATIVE EXTREMITY EXAM: Chronic nonpitting edema in the lower extremities bilaterally, negative Homans sign bilaterally, chronic venous stasis in the lower extremities bilaterally Neuro: COMMON NORMALS: patient oriented x3, CN's II-XII intact bilaterally, moves all extremities and no focal motor deficits SENSORIUM/ORIENTATION: Yes alert, Yes oriented to person, Yes oriented to place and Yes oriented to time SPEECH: speech normal Psych: COMMON NORMALS: mental status grossly normal and cooperative Skin: COMMON NORMALS: no rashes or lesions noted GENERAL SKIN EXAM: no rashes or lesions noted Urinary Catheter Management^: Lane: Cath Placed During This Visit: yes, but has since been removed by the nurse Reason for Continuing Indwelling Catheter: Acute Urinary Retention or Obstruction Urinary Catheter Date of Insertion: 04/19/20 Urinary Catheter Time of Insertion: 14:20 Date Urinary Catheter Removed: 04/22/20 Time Urinary Catheter Discontinued: 13:21 Discharge Data Data Completed and Pending: Completed Studies During Hospitalization Category Date Time Status CT abdomen pelvis w con* [id number] Rout ine Cat Scan 04/18/20 13:[address] abdomen pelvis wo con [id number] Rout ine Cat Scan 04/21/20 08:[address] drain kidney 4 [id number] Routine Cat Scan 04/18/20 Completed XR chest 1V tila ble [id number] Stat Exams 04/18/20 10:22 Completed Pending at discharge Category Date Time Status Body Fluid Cultur e & GS Stat Lab 04/19/20 11:34 Results Complete Blood Co unt w/Auto AM LABS Lab 04/25/20 04:00 Ordered Cytology [PTH] Ro utine Pth 04/18/20 16:00 Received Labs from last 24 hours 04/24/20 04/24/20 04/24/20 06:45 04:10 04:10 WBC 11.6 H RBC 4.27 Hgb 13.2 Hct 40.8 L MCV 95.6 H MCH 30.9 MCHC 32.4 RDW 13.3 Plt Count 201 MPV 9.7 Neut % (Auto) 78.6 Lymph % (Auto) 10.4 Luce % (Auto) 7.2 Eos % (Auto) 0.9 Baso % (Auto) 0.7 Neut # (Auto) 9.2 H Lymph # (Auto) 1.2 Luce # (Auto) 0.8 Eos # (Auto) 0.1 Baso # (Auto) 0.1 Nucleated RBC % (a uto) 0 Nucleated RBCs # 0.0 Sodium 136 Potassium 4.1 Chloride 105 Carbon Dioxide 21 L Anion Gap 14.1 BUN 20 Creatinine 1.3 H GFR Calculation 56.5 L Glucose 136 H POC Glucose 158 Calculated Osmolal ity 281 L Calcium 8.3 L Total Bilirubin 0.6 AST 52 H ALT 19 Alkaline Phosphata se 128 Total Protein 6.5 L Albumin 2.2 L Globulin 4.3 Vancomycin Trough 04/23/20 04/23/20 04/23/20 21:54 17:06 14:00 WBC RBC Hgb Hct MCV MCH MCHC RDW Plt Count MPV Neut % (Auto) Lymph % (Auto) Luce % (Auto) Eos % (Auto) Baso % (Auto) Neut # (Auto) Lymph # (Auto) Luce # (Auto) Eos # (Auto) Baso # (Auto) Nucleated RBC % (a uto) Nucleated RBCs # Sodium Potassium Chloride Carbon Dioxide Anion Gap BUN Creatinine GFR Calculation Glucose POC Glucose 115 163 Calculated Osmolal ity Calcium Total Bilirubin AST ALT Alkaline Phosphata se Total Protein Albumin Globulin Vancomycin Trough 33.6 H* 04/23/20 10:57 WBC RBC Hgb Hct MCV MCH MCHC RDW Plt Count MPV Neut % (Auto) Lymph % (Auto) Luce % (Auto) Eos % (Auto) Baso % (Auto) Neut # (Auto) Lymph # (Auto) Luce # (Auto) Eos # (Auto) Baso # (Auto) Nucleated RBC % (a uto) Nucleated RBCs # Sodium Potassium Chloride Carbon Dioxide Anion Gap BUN Creatinine GFR Calculation Glucose POC Glucose 138 Calculated Osmolal ity Calcium Total Bilirubin AST ALT Alkaline Phosphata se Total Protein Albumin Globulin Vancomycin Trough Vitals: Last Vital Signs Temp 97.5 F L 04/24/20 07:36 Pulse 86 04/24/20 07:36 Resp 20 H 04/24/20 07:36 BP 124/85 04/24/20 07:36 Pulse Ox 96 04/24/20 07:36 Discharge Plan Discharge Patient Disposition: Home, Self-Care Condition: Stable Prescriptions: New levofloxacin 750 mg Tablet 750 mg PO DAILY@0600 10 Days Qty: 10 RF: 0 oxybutynin chloride 5 mg Tablet 5 mg PO BID 15 Days Qty: 30 RF: 0 amoxicillin-pot clavulanate 875-125 mg Tablet 1 tab PO BID 10 Days Qty: 20 RF: 0 Continued Adult Probiotic 3 billion cell capsule 3,000 mmu cells PO DAILY RF: 0 prednisolone acetate 0.12 % drops,suspension 1 drop ophthalmic (eye) DAILY RF: 0 olive leaf extract 250 mg Capsule 250 mg PO DAILY RF: 0 Trulicity 1.5 mg/0.5 mL pen injector 1.5 mg SUBCUT Q7D RF: 0 Discontinued lisinopril 10 mg tablet 10 mg PO DAILY RF: 0 Discharge Orders: Discharge Order (Routine); Ordered 04/24/20 Ordered By: Ramon Brambila Referrals: Zhen Sunshine, [employer] [Primary Care Provider] - 05/08/20 9:20 am Artur Tiwari MD [Physician] - 1-3 days (DR TIWARI WILL CALL WITH APPOINTMENT) Discharge Diet: Cardiac Discharge Activity: Resume usual activity Patient Instructions: Oxybutynin (By mouth), Amoxicillin (By mouth), Levofloxacin (By mouth), Acute Pyelonephritis (DC), Ureteral Stent Placement (DC) Activity Restrictions/Additional Instructions: Continue taking all your medications except losartan. Your blood pressure has been fine without any acute hypertensives for now. You are on 2 different antibiotics levofloxacin which seems needed to be taken once daily and Augmentin which she will take twice daily. Please take both of these medication. Have nephrostomy tube in. For now prescription is for 10 days. Please follow-up with Dr. Tiwari on Thursday. Discharge Date/Time: 04/24/20 14:30 Discharge Attestations Time Spent in Discharge Care*: greater than 30 min Specific Discharge Activities: Specific discharge activities: educating patient, discussing with pcp/other providers, discussing with case filler/social workers/dc planners, documenting/other paperwork and evaluating patient/reviewing data Status at Discharge: Cognitive status at discharge: cognitively intact , Be havioral status at discharge: cooperative , Functional status at discharge: independent ambulation Overall status at discharge: patient is progressing back to baseline Quality Metrics Clinical Quality Measures During this hospital stay, did patient experience: None Coding Level of Care Code Acute [employer] Text[employer] Supervisor for g Fwd Exam Comprehensive Diagnoses Right ureteral calculus N20.1 Renal abscess, right N15.1 Hypertension I10 Pyelonephritis N12 Controlled diabetes mellitus with hyperglycemia, without long-term current use of insulin E11.65
[2020-04-24 11:02] LABS: Glucose Point of Care 111 mg/dL (70-110)
[2020-04-24 14:32] VITALS: BP 124/85; PULSE 86; RESP 20; TEMP 36.4; O2SAT 96
--- NOTE | 2020-04-27 08:29 | PC.SOCIAL ---
Notified Dr Brambila of critical culture results on sterile body fluid and no further orders needed per physician he is on appropriate coverage.
== END 2020-04-24 14:30 | disposition home or self-care (01) | DRG 853 ==
LOC: ER 11:02 → MEDSURG 12:36
PROVIDERS: Family Medicine; Physician Assistant; Urology; Admitting Provider Family Medicine; Family Provider Nurse Practitioner; PCP Nurse Practitioner; Visit Provider Student in an Organized Health Care Education/Training Program
PROC: 0TJB8ZZ Inspection of Bladder, Via Natural or Artificial Opening Endoscopic (ICD-10-PCS; CPT 52000; principal; 2020-04-19 13:45)
PROC: 0T768DZ Dilation of Right Ureter with Intraluminal Device, Via Natural or Artificial Opening Endoscopic (ICD-10-PCS; CPT 50605; 2020-04-19 13:45)
PROC: 0T768DZ Dilation of Right Ureter with Intraluminal Device, Via Natural or Artificial Opening Endoscopic (ICD-10-PCS; 2020-04-19 13:45)
DX: A41.9 Sepsis, unspecified organism (principal); N15.1 Renal and perinephric abscess; N20.1 Calculus of ureter; N10 Acute pyelonephritis; N17.9 Acute kidney failure, unspecified; E11.65 Type 2 diabetes mellitus with hyperglycemia; I10 Essential (primary) hypertension; R31.9 Hematuria, unspecified; B96.20 Unspecified Escherichia coli [E. coli] as the cause of diseases classified elsewhere; B96.89 Other specified bacterial agents as the cause of diseases classified elsewhere; E78.1 Pure hyperglyceridemia; N13.9 Obstructive and reflux uropathy, unspecified; R19.7 Diarrhea, unspecified; Z86.010 Personal history of colon polyps
CPT/HCPCS: 12345; 36415; 36416; 49405; 51702; 71045; 74176; 74177; 76000; 80048; 80053; 80202; 81001; 82274; 82962; 83605; 83630; 85025; 85610; 87040; 87070; 87075; 87077; 87086; 87186; 87205; 87493; 87506; 88112; 88304; 94664; 96372; 96375; 99283; C2625; J1815; J2001; J2270; J2543; J3010; J3370; J7030; J7040; Q9967

== ENCOUNTER 2020-04-27 09:30 | Outpatient (CLI) | payer BC, SELFPAY ==
--- NOTE | 2020-04-27 09:37 | XRR_ITS ---
PROCEDURE INFORMATION: Exam: XR Abdomen, 1 View Exam date and time: 04/27/2020 9:52 AM Age: 59 years old Clinical indication: Condition or disease; Kidney or ureter condition; Calculus (stone) in kidney; Prior surgery; Surgery date: <1 month; Surgery type: Stent RT [id number]/02/20. Renal abscess drainage 04/19/20; Additional info: Pyelonephritis TECHNIQUE: Imaging protocol: XR of the abdomen. Views: Frontal supine view of the abdomen. 1 View. COMPARISON: CR XR KUB [id number] 04/13/2020 8:11 AM FINDINGS: Tubes, catheters and devices: Pigtail catheter projects over the right lower abdomenImpression. Gastrointestinal tract: Bowel gas pattern is nonspecific. No mass effect upon the bowel loops. Distal rectal gas. Scattered loops of air filled small bowel none of which are dilated. Organs: Radiopaque density projects over the right lower abdomen possibly renal calcification. Vasculature: Double-J ureteric stent on the right. Bones/joints: No acute process within the osseous structures of the spine or pelvis. Soft tissues: No appreciable calcifications XR/XR KUB [id number] IMPRESSION: 1. Bowel gas pattern is nonspecific. 2. Double-J ureteric stent on the right. 3. Radiopaque density projects over the right lower abdomen possibly renal calcification. 16 mm.
== END 2020-04-27 09:31 | disposition home or self-care (01) ==
LOC: RAD 09:33
PROVIDERS: PCP Nurse Practitioner; Visit Provider Urology
DX: N12 Tubulo-interstitial nephritis, not specified as acute or chronic (principal); Z96.0 Presence of urogenital implants; N20.0 Calculus of kidney
CPT/HCPCS: 74018; 80053; 81001; 85025

== ENCOUNTER 2020-05-03 04:38 | Emergency (ER) | payer BC, SELFPAY ==
[2020-05-03] VITALS (30 sets, daily range): BP systolic 93–161; BP diastolic 67–109; PULSE 107–130; RESP 10–29; TEMP 36.6; O2SAT 84–100; BMI 42.0
--- NOTE | 2020-05-03 04:44 | XRR_ITS ---
PROCEDURE INFORMATION: Exam: XR Chest, 1 View Exam date and time: 05/03/2020 5:21 AM Age: 59 years old Clinical indication: Dyspnea TECHNIQUE: Imaging protocol: XR of the chest Views: 1 view. COMPARISON: 1. XR CHEST 04/18/2020 10:23 AM 2. CTA CHEST 05/03/2020 7:20 AM FINDINGS: Lungs: No pneumonia or pulmonary edema. Pleural space: No pleural effusion or pneumothorax. Heart/Mediastinum: The cardiac silhouette is not enlarged. The mediastinal contours are normal. Vasculature: The thoracic aorta is tortuous. Bones/joints: Bridging osteophytes in the mid thoracic spine. XR/XR chest 1V portable [id number] IMPRESSION: No acute radiographic abnormality. See the report for the separate CTA CHEST 05/03/2020.
--- NOTE | 2020-05-03 04:45 | ECG_ITS ---
[facility] Test Date: 2020-05-03 Pat Name: Olegario Ortiz Department: Room: Gender: Male Supervisor Inspection: : 1960 Requested By: Jesenia Blum Order Number: [id number] Christie MD: Aleena Garces M.D. Measurements Intervals [place] Rate: 119 P: 41 ID: [id number] QRS: -34 QRSD: 104 T: -1 QT: 365 QTc: 514 Interpretive Statements SINUS TACHYCARDIA LOW QRS VOLTAGE IN PRECORDIAL LEADS [QRS DEFLECTION < 1.0 mV IN CHEST LEADS] ANTERIOR MYOCARDIAL INFARCTION , PROBABLY RECENT [40+ ms Q WAVE AND/OR ST/T ABNORMALITY IN V3/V4] INFERIOR MYOCARDIAL INFARCTION , OF INDETERMINATE AGE [40+ ms Q WAVE AND/OR ST/T ABNORMALITY IN II/aVF] ACUTE ME No previous ECG available for comparison Electronically Signed On 05-04-2020 0:08:31 CDT by Aleena Garces M.D. [email or web address]
--- NOTE | 2020-05-03 04:46 | W.ED.SOB ---
Documented by User: Jesenia Campbell 05/03/20 18:45 HPI - SOB/Dyspnea General: Chief Complaint: Shortness of Breath/Dyspnea Stated Complaint: SOB Time Seen by Provider: 05/03/20 04:43 Source: patient and family Limitations: no limitations History of Present Illness: HPI Narrative: Mr. Ortiz is a nice 59-year-old male who comes in complaining of shortness of breath and bilateral leg swelling and edema. The patient states that he was recently in the hospital for a kidney infection and was well at discharge but he states since going home he is progressively developed more and more edema of his lower extremities. He is become progressively more short of breath. He denies fevers, chills, productive cough or otherwise. Patient denies any chest pain but anytime he lays flat or exerts himself at all he gets severely short of breath. He is unaware of anything else that makes his symptoms better or worse. Again he denies any chest pain. He is not had a fever and he has had no known exposures to anyone with COVID-19. Associated symptoms: Reports orthopnea; Deny abdominal pain, chest congestion, chest pain, diaphoresis, dizziness, extremity pain, fever(s), hemoptysis, lightheadedness, nausea, palpitations, syncope or vomiting Review of Systems Const: Denies: fever(s), chills, body aches, fatigue, malaise or diaphoresis Eyes: Denies: change in vision, blurry vision, blind spots, photophobia, eye discharge or eye redness ENMT: Denies: throat pain, odynophagia, hoarseness, swelling of lips/tongue, oral sores, ear or mastoid pain, ear discharge, change in hearing or nasal discharge Card: Reports: swelling of feet/ankles, dyspnea on exertion and orthopnea; Denies: chest pain, palpitations, irregular heart rhythm, edema, lightheadedness, syncope or pre-syncope Resp: Reports: dyspnea; Denies: productive cough, non-productive cough, wheezing, hemoptysis or chest congestion GI: Denies: abdominal pain, nausea, vomiting, hematemesis, coffee ground emesis, heartburn, diarrhea, constipation, GI cramping, hematochezia or melena : Denies: flank pain, dysuria, urinary frequency, urinary urgency or hematuria Musc: Denies: neck pain, back pain, extremity pain, extremity swelling, joint pain, joint swelling, joint redness, joint warmth or joint stiffness Skin/Breast: Denies: rash, pruritus, erythema, skin tenderness or jaundice Neuro: Denies: headache(s), numbness in extremities, weakness in extremities, sensory changes, lack of coordination, difficulty walking, dizziness, vertigo, confusion, Slurred speech present or seizure-like activity Nikos/Lymph: Denies: easy bruising, easy bleeding, petechiae, purpura or enlarged lymph nodes All/Imm: Denies: urticaria, throat swelling, tongue swelling, facial swelling or acute wheezing PFSH ED PFSH: Medical History (Updated 05/03/20 @ 09:52 by Solomon Schaefer DO) C. difficile colitis Controlled diabetes mellitus with hyperglycemia, without long-term current use of insulin Diverticulosis Enterococcus UTI Glaucoma H/O Clostridium difficile infection H/O nephrolithotomy with removal of calculi History of colon polyps History of [place] spotted fever Hypertriglyceridemia Internal hemorrhoids Surgical History H/O circumcision H/O inguinal hernia repair H/O lithotripsy Status post colonoscopy with polypectomy Family History Other Cancer Diabetes Denies family history of Anesthesia complication Bleeding disorder Social History Smoking and tobacco status: never smoked Second hand smoke exposure: No Smoking risk assessment/counseling performed?: No Alcohol intake: never Desire information about alcohol rehabilitation?: No Counseling given: No Desire information about substance/drug rehabilitation?: No Counseling given: No Adopted: No Caregiver/support person: No Lives independently: Yes Household members: spouse Housing: House Marital status: service: No Current occupational status: employed History of recent travel: No Current gender identity: Male Physical Exam Const: COMMON NORMALS: no acute distress, patient oriented x3, no limitations, healthy appearing and well nourished GENERAL APPEARANCE: cooperative, well kempt and well developed HENMT: COMMON NORMALS: normocephalic, atraumatic, external ears normal, EAC's normal and Normal external nose present HEAD & SCALP: normal to inspection, normocephalic and atraumatic FACE & SINUS: normal facial exam and face symmetric NOSE: Normal external nose present and Normal nares present EXTERNAL EAR: Yes external ears normal EXTERNAL AUDITORY CANAL: EAC's normal MOUTH: Normal oral and palatal mucosa present, lip normal and tongue normal Eye: COMMON NORMALS: Equal, round and reactive pupils present and conjunctivae normal GENERAL EYE: appearance normal, both eyes and all related structures ALIGNMENT: Yes alignment normal PERIORBITAL: periorbital findings normal EYELID: eyelids normal CONJUNCTIVA: Yes conjunctivae normal SCLERA: sclerae normal PUPIL: Yes Equal, round and reactive pupils present Neck/C-Spine: COMMON NORMALS: full ROM, no lymphadenopathy, supple, no meningeal signs and no JVD GENERAL: Yes normal visual inspection and Yes trachea midline Chest: COMMONS NORMALS: normal inspection of the chest and normal palpation of entire chest wall Resp: COMMON NORMALS: normal respiratory effort, No retractions and No use of accessory muscles EFFORT & INSPECTION: Yes able to speak in complete sentences and Yes symmetric chest movement AUSCULTATION: no crackles, rales, no rhonchi and no wheezes Cardio: COMMON NORMALS: no JVD, regular rate, regular rhythm, S1 normal heart sound present and S2 normal heart sound present RATE: regular rate RHYTHM: regular rhythm HEART SOUNDS: S1 normal heart sound present, S2 normal heart sound present, no click, no gallops, no murmurs, no rubs and abnormal split S2 GI: COMMON NORMALS: Soft to palpation and No hepatosplenomegaly present PALPATION: Yes Soft to palpation, No Tenderness to palpation present (GI), No Guarding due to palpation present (GI), No Rigid due to palpation, Yes No hepatosplenomegaly present, No Hernia present, No Palpable mass present and No Pulsatile mass present : COMMON NORMALS: Yes no CVA tenderness BLADDER/KIDNEY EXAM: Yes no CVA tenderness Back/Pelvis: COMMON NORMALS: no CVA tenderness, thoracic and lumbar spine normal to inspection, no thoracic nor lumbar tenderness and thoraco-lumbar ROM normal Extremity: COMMON NORMALS: normal to inspection, full ROM, capillary refill normal, no joint enlargement and no calf tenderness GENERAL: Yes edema Neuro: COMMON NORMALS: patient oriented x3, CN's II-XII intact bilaterally, moves all extremities, no focal motor deficits and no sensory deficits noted MENINGEAL SIGNS: Yes no meningeal signs SPEECH: speech normal Psych: APPEARANCE: Yes well kempt Skin: COMMON NORMALS: no rashes or lesions noted, turgor normal, no jaundice, no petechiae and no mottling GENERAL SKIN EXAM: no rashes or lesions noted and turgor normal Course Vital Signs: Vital signs: Vital Signs Temperature 97.8 F 05/03/20 04:41 Pulse Rate 110 H 05/03/20 10:10 Respiratory Rate 18 05/03/20 10:10 Blood Pressure 110/82 05/03/20 10:15 Pulse Oximetry 93 05/03/20 10:10 MDM - SOB/Dyspnea Lab Data: Labs: Lab Results 05/03/20 05/03/20 05/03/20 Range/Units 05:00 05:20 05:20 WBC 8.8 (4.0-10.0) 10^3/ uL RBC 4.74 (4.1-5.3) 10^6/u L Hgb 14.1 (11.7-16.6) g/dL Hct 46.1 (42.0-52.0) % MCV 97.3 H (80-94) fL MCH 29.7 (28.0-34.0) pg MCHC 30.6 (30.0-36.0) g/dL RDW 14.4 (12.1-15.1) % Plt Count 184 (130-400) 10^3/c mm MPV 10.0 (7.4-10.4) fL Neut % (Auto) 62.2 % Lymph % (Auto) 24.1 % [place] % (Auto) 10.5 % Eos % (Auto) 0.8 % Baso % (Auto) 1.6 % Neut # (Auto) 5.46 (1.8-7.7) 10^3/u L Lymph # (Auto) 2.1 (0.8-4.8) 10^3/u L [place] # (Auto) 0.9 (0.2-0.9) 10^3/u L Eos # (Auto) 0.1 (0.0-0.8) 10^3/u L Baso # (Auto) 0.1 (0.0-0.1) 10^3/u L Nucleated RBC % (a uto) 0 % Nucleated RBCs # 0.0 /100WBC PT (10.5-13.3) SECO NDS INR (0.8-1.2) D-Dimer (0-0.59) ug/mIFE U Specimen Type Arterial Sample Site Brachial, left ABG pH 7.46 H (7.35-7.45) ABG pCO2 32.5 L (35-45) mmHg ABG pO2 72.0 L (80.0-100.0) mmH g ABG HCO3 23.2 (22-26) mmol/L ABG O2 Saturation 95.4 ABG Base Excess 0.1 (-2.0-2.0) mmol/ L Bradly Test N/a A-a O2 Gradient 35.8 H (5-10) mmHg Hematocrit 45.1 (42-52) % Hgb O2 Saturation 94.3 L (95-100) % Carboxyhemoglobin 0.7 (0.4-20.1) %THgb Methemoglobin 0.5 (0.4-1.5) % Total Hemoglobin 14.7 (14-18) g/dL Sodium 137.0 135 L (131-143) mmol/L Potassium 4.2 4.4 (3.5-5.0) mmol/L Glucose 155.0 H 152 H (70-115) mg/dL Ionized Calcium 1.1 (1.1-1.4) mmol/L O2 Delivery Device Nc O2 Liters/Min 4.0 % Psychological Aide ID harkr Chloride 99 (98-107) mmol/L Carbon Dioxide 26 (22-29) mmol/L Anion Gap 14.4 (5-19) BUN 18 (6-20) mg/dL Creatinine 1.5 H (0.7-1.2) mg/dL GFR Calculation 47.9 L (90-130) mL/min Calculated Osmolal ity 279 L (285-295) mOsm/k g Lactic Acid (0.5-2.2) mmol/L Calcium 8.4 L (8.5-10.5) mg/dL Magnesium 1.8 (1.7-2.3) mg/dL Total Bilirubin 0.7 (0.15-1.2) mg/dL AST 52 H (0-40) U/L ALT 22 (0-41) U/L Alkaline Phosphata se 135 H (40-130) IU/L Troponin T Baselin e (0-15) ng/L NT-Pro-B Natriuret Pep 9209 H (0-125) pg/mL Total Protein 7.0 (6.6-8.7) g/dL Albumin 3.0 L (3.5-5.2) g/dL Globulin 4.0 (1.3-4.6) g/dL Urine Color (Yellow) Urine Appearance (CLEAR) Urine pH (5-7) Ur Specific Gravit y (1.005-1.030) Urine Protein (Negative) Urine Glucose (UA) (Normal) Urine Ketones (Negative) Urine Blood (Negative) Urine Nitrate (Negative) Urine Bilirubin (NEGATIVE) Urine Urobilinogen (Negative) mg/dL Ur Leukocyte Venita ase (Negative) Urine RBC (0-2) /hpf Urine WBC (0-5) /hpf Ur Squamous Epith Cells (0-5) Urine Bacteria (NONE) 05/03/20 05/03/20 05/03/20 Range/Units 05:20 05:20 05:20 WBC (4.0-10.0) 10^3/ uL RBC (4.1-5.3) 10^6/u L Hgb (11.7-16.6) g/dL Hct (42.0-52.0) % MCV (80-94) fL MCH (28.0-34.0) pg MCHC (30.0-36.0) g/dL RDW (12.1-15.1) % Plt Count (130-400) 10^3/c mm MPV (7.4-10.4) fL Neut % (Auto) % Lymph % (Auto) % [place] % (Auto) % Eos % (Auto) % Baso % (Auto) % Neut # (Auto) (1.8-7.7) 10^3/u L Lymph # (Auto) (0.8-4.8) 10^3/u L [place] # (Auto) (0.2-0.9) 10^3/u L Eos # (Auto) (0.0-0.8) 10^3/u L Baso # (Auto) (0.0-0.1) 10^3/u L Nucleated RBC % (a uto) % Nucleated RBCs # /100WBC PT 15.50 H (10.5-13.3) SECO NDS INR 1.19 (0.8-1.2) D-Dimer 16.15 H (0-0.59) ug/mIFE U Specimen Type Sample Site ABG pH (7.35-7.45) ABG pCO2 (35-45) mmHg ABG pO2 (80.0-100.0) mmH g ABG HCO3 (22-26) mmol/L ABG O2 Saturation ABG Base Excess (-2.0-2.0) mmol/ L Bradly Test A-a O2 Gradient (5-10) mmHg Hematocrit (42-52) % Hgb O2 Saturation (95-100) % Carboxyhemoglobin (0.4-20.1) %THgb Methemoglobin (0.4-1.5) % Total Hemoglobin (14-18) g/dL Sodium (131-143) mmol/L Potassium (3.5-5.0) mmol/L Glucose (70-115) mg/dL Ionized Calcium (1.1-1.4) mmol/L O2 Delivery Device O2 Liters/Min % Psychological Aide ID Chloride (98-107) mmol/L Carbon Dioxide (22-29) mmol/L Anion Gap (5-19) BUN (6-20) mg/dL Creatinine (0.7-1.2) mg/dL GFR Calculation (90-130) mL/min Calculated Osmolal ity (285-295) mOsm/k g Lactic Acid 2.7 H (0.5-2.2) mmol/L Calcium (8.5-10.5) mg/dL Magnesium (1.7-2.3) mg/dL Total Bilirubin (0.15-1.2) mg/dL AST (0-40) U/L ALT (0-41) U/L Alkaline Phosphata se (40-130) IU/L Troponin T Baselin e 25 H (0-15) ng/L NT-Pro-B Natriuret Pep (0-125) pg/mL Total Protein (6.6-8.7) g/dL Albumin (3.5-5.2) g/dL Globulin (1.3-4.6) g/dL Urine Color (Yellow) Urine Appearance (CLEAR) Urine pH (5-7) Ur Specific Gravit y (1.005-1.030) Urine Protein (Negative) Urine Glucose (UA) (Normal) Urine Ketones (Negative) Urine Blood (Negative) Urine Nitrate (Negative) Urine Bilirubin (NEGATIVE) Urine Urobilinogen (Negative) mg/dL Ur Leukocyte Venita ase (Negative) Urine RBC (0-2) /hpf Urine WBC (0-5) /hpf Ur Squamous Epith Cells (0-5) Urine Bacteria (NONE) 05/03/20 Range/Units 05:53 WBC (4.0-10.0) 10^3/ uL RBC (4.1-5.3) 10^6/u L Hgb (11.7-16.6) g/dL Hct (42.0-52.0) % MCV (80-94) fL MCH (28.0-34.0) pg MCHC (30.0-36.0) g/dL RDW (12.1-15.1) % Plt Count (130-400) 10^3/c mm MPV (7.4-10.4) fL Neut % (Auto) % Lymph % (Auto) % [place] % (Auto) % Eos % (Auto) % Baso % (Auto) % Neut # (Auto) (1.8-7.7) 10^3/u L Lymph # (Auto) (0.8-4.8) 10^3/u L [place] # (Auto) (0.2-0.9) 10^3/u L Eos # (Auto) (0.0-0.8) 10^3/u L Baso # (Auto) (0.0-0.1) 10^3/u L Nucleated RBC % (a uto) % Nucleated RBCs # /100WBC PT (10.5-13.3) SECO NDS INR (0.8-1.2) D-Dimer (0-0.59) ug/mIFE U Specimen Type Sample Site ABG pH (7.35-7.45) ABG pCO2 (35-45) mmHg ABG pO2 (80.0-100.0) mmH g ABG HCO3 (22-26) mmol/L ABG O2 Saturation ABG Base Excess (-2.0-2.0) mmol/ L Bradly Test A-a O2 Gradient (5-10) mmHg Hematocrit (42-52) % Hgb O2 Saturation (95-100) % Carboxyhemoglobin (0.4-20.1) %THgb Methemoglobin (0.4-1.5) % Total Hemoglobin (14-18) g/dL Sodium (131-143) mmol/L Potassium (3.5-5.0) mmol/L Glucose (70-115) mg/dL Ionized Calcium (1.1-1.4) mmol/L O2 Delivery Device O2 Liters/Min % Psychological Aide ID Chloride (98-107) mmol/L Carbon Dioxide (22-29) mmol/L Anion Gap (5-19) BUN (6-20) mg/dL Creatinine (0.7-1.2) mg/dL GFR Calculation (90-130) mL/min Calculated Osmolal ity (285-295) mOsm/k g Lactic Acid (0.5-2.2) mmol/L Calcium (8.5-10.5) mg/dL Magnesium (1.7-2.3) mg/dL Total Bilirubin (0.15-1.2) mg/dL AST (0-40) U/L ALT (0-41) U/L Alkaline Phosphata se (40-130) IU/L Troponin T Baselin e (0-15) ng/L NT-Pro-B Natriuret Pep (0-125) pg/mL Total Protein (6.6-8.7) g/dL Albumin (3.5-5.2) g/dL Globulin (1.3-4.6) g/dL Urine Color Yellow (Yellow) Urine Appearance Sl hazy (CLEAR) Urine pH 5 (5-7) Ur Specific Gravit y 1.015 (1.005-1.030) Urine Protein 1+ H (Negative) Urine Glucose (UA) Norm (Normal) Urine Ketones 1+ H (Negative) Urine Blood 2+ H (Negative) Urine Nitrate Negative (Negative) Urine Bilirubin Neg (NEGATIVE) Urine Urobilinogen Norm (Negative) mg/dL Ur Leukocyte Venita ase 1+ H (Negative) Urine RBC 5-10 H (0-2) /hpf Urine WBC 15-25 H (0-5) /hpf Ur Squamous Epith Cells 5-10 H (0-5) Urine Bacteria 1+ H (NONE) EKG Data^: EKG 1: Attestation: I personally reviewed and interpreted this EKG as follows: EKG Interpretation Date: 05/03/20 EKG interpretation time: 04:58 Interpretation: Sinus tachycardia at 119 beats a minute, left axis deviation, Q waves anteriorly, nonspecific ST-T wave changes. No acute STEMI, confirm with Dr. Garces. No old for comparison. Discharge Plan Discharge Patient Disposition: Xfer Other Clinical Impression: Pulmonary embolism Qualifiers: Pulmonary embolism type: multiple subsegmental (without acute cor pulmonale) Qualified Code(s): I26.94 - Multiple subsegmental pulmonary emboli without acute cor pulmonale Condition: Fair Discharge Orders: Transfer Out of Facility (Order); Ordered 05/03/20 Ordered By: Solomon Schaefer Referrals: Zhen Sunshine FNP-C [Primary Care Provider] - Discharge Date/Time: 05/03/20 10:35 Sign Out Sign Out Data: Patient Sign Out occurred on 05/03/20 at 06:52. Patient's care was discussed, and care was transferred from to Solomon Schaefer. Coding Level of Care Code ED Fluorescent Lamp Replacer for Chg Fwd Exam Comprehensive Documented by User: Solomon Schaefer DO 05/03/20 08:55 HPI - SOB/Dyspnea General: Chief Complaint: Shortness of Breath/Dyspnea Stated Complaint: SOB Time Seen by Provider: 05/03/20 04:43 [facility] ED PFSH: Medical History (Updated 05/03/20 @ 09:52 by Solomon Schaefer DO) C. difficile colitis Controlled diabetes mellitus with hyperglycemia, without long-term current use of insulin Diverticulosis Enterococcus UTI Glaucoma H/O Clostridium difficile infection H/O nephrolithotomy with removal of calculi History of colon polyps History of [place] spotted fever Hypertriglyceridemia Internal hemorrhoids Surgical History H/O circumcision H/O inguinal hernia repair H/O lithotripsy Status post colonoscopy with polypectomy Family History Other Cancer Diabetes Denies family history of Anesthesia complication Bleeding disorder Social History Smoking and tobacco status: never smoked Second hand smoke exposure: No Smoking risk assessment/counseling performed?: No Alcohol intake: never Desire information about alcohol rehabilitation?: No Counseling given: No Desire information about substance/drug rehabilitation?: No Counseling given: No Adopted: No Caregiver/support person: No Lives independently: Yes Household members: spouse Housing: House Marital status: service: No Current occupational status: employed History of recent travel: No Current gender identity: Male Course Vital Signs: Vital signs: Vital Signs Temperature 97.8 F 05/03/20 04:41 Pulse Rate 110 H 05/03/20 10:10 Respiratory Rate 18 05/03/20 10:10 Blood Pressure 110/82 05/03/20 10:15 Pulse Oximetry 93 05/03/20 10:10 MDM - SOB/Dyspnea Lab Data: Labs: Lab Results 05/03/20 05/03/20 05/03/20 Range/Units 05:00 05:20 05:20 WBC 8.8 (4.0-10.0) 10^3/ uL RBC 4.74 (4.1-5.3) 10^6/u L Hgb 14.1 (11.7-16.6) g/dL Hct 46.1 (42.0-52.0) % MCV 97.3 H (80-94) fL MCH 29.7 (28.0-34.0) pg MCHC 30.6 (30.0-36.0) g/dL RDW 14.4 (12.1-15.1) % Plt Count 184 (130-400) 10^3/c mm MPV 10.0 (7.4-10.4) fL Neut % (Auto) 62.2 % Lymph % (Auto) 24.1 % [place] % (Auto) 10.5 % Eos % (Auto) 0.8 % Baso % (Auto) 1.6 % Neut # (Auto) 5.46 (1.8-7.7) 10^3/u L Lymph # (Auto) 2.1 (0.8-4.8) 10^3/u L [place] # (Auto) 0.9 (0.2-0.9) 10^3/u L Eos # (Auto) 0.1 (0.0-0.8) 10^3/u L Baso # (Auto) 0.1 (0.0-0.1) 10^3/u L Nucleated RBC % (a uto) 0 % Nucleated RBCs # 0.0 /100WBC PT (10.5-13.3) SECO NDS INR (0.8-1.2) D-Dimer (0-0.59) ug/mIFE U Specimen Type Arterial Sample Site Brachial, left ABG pH 7.46 H (7.35-7.45) ABG pCO2 32.5 L (35-45) mmHg ABG pO2 72.0 L (80.0-100.0) mmH g ABG HCO3 23.2 (22-26) mmol/L ABG O2 Saturation 95.4 ABG Base Excess 0.1 (-2.0-2.0) mmol/ L Bradly Test N/a A-a O2 Gradient 35.8 H (5-10) mmHg Hematocrit 45.1 (42-52) % Hgb O2 Saturation 94.3 L (95-100) % Carboxyhemoglobin 0.7 (0.4-20.1) %THgb Methemoglobin 0.5 (0.4-1.5) % Total Hemoglobin 14.7 (14-18) g/dL Sodium 137.0 135 L (131-143) mmol/L Potassium 4.2 4.4 (3.5-5.0) mmol/L Glucose 155.0 H 152 H (70-115) mg/dL Ionized Calcium 1.1 (1.1-1.4) mmol/L O2 Delivery Device Nc O2 Liters/Min 4.0 % Psychological Aide ID harkr Chloride 99 (98-107) mmol/L Carbon Dioxide 26 (22-29) mmol/L Anion Gap 14.4 (5-19) BUN 18 (6-20) mg/dL Creatinine 1.5 H (0.7-1.2) mg/dL GFR Calculation 47.9 L (90-130) mL/min Calculated Osmolal ity 279 L (285-295) mOsm/k g Lactic Acid (0.5-2.2) mmol/L Calcium 8.4 L (8.5-10.5) mg/dL Magnesium 1.8 (1.7-2.3) mg/dL Total Bilirubin 0.7 (0.15-1.2) mg/dL AST 52 H (0-40) U/L ALT 22 (0-41) U/L Alkaline Phosphata se 135 H (40-130) IU/L Troponin T Baselin e (0-15) ng/L NT-Pro-B Natriuret Pep 9209 H (0-125) pg/mL Total Protein 7.0 (6.6-8.7) g/dL Albumin 3.0 L (3.5-5.2) g/dL Globulin 4.0 (1.3-4.6) g/dL Urine Color (Yellow) Urine Appearance (CLEAR) Urine pH (5-7) Ur Specific Gravit y (1.005-1.030) Urine Protein (Negative) Urine Glucose (UA) (Normal) Urine Ketones (Negative) Urine Blood (Negative) Urine Nitrate (Negative) Urine Bilirubin (NEGATIVE) Urine Urobilinogen (Negative) mg/dL Ur Leukocyte Venita ase (Negative) Urine RBC (0-2) /hpf Urine WBC (0-5) /hpf Ur Squamous Epith Cells (0-5) Urine Bacteria (NONE) 05/03/20 05/03/20 05/03/20 Range/Units 05:20 05:20 05:20 WBC (4.0-10.0) 10^3/ uL RBC (4.1-5.3) 10^6/u L Hgb (11.7-16.6) g/dL Hct (42.0-52.0) % MCV (80-94) fL MCH (28.0-34.0) pg MCHC (30.0-36.0) g/dL RDW (12.1-15.1) % Plt Count (130-400) 10^3/c mm MPV (7.4-10.4) fL Neut % (Auto) % Lymph % (Auto) % [place] % (Auto) % Eos % (Auto) % Baso % (Auto) % Neut # (Auto) (1.8-7.7) 10^3/u L Lymph # (Auto) (0.8-4.8) 10^3/u L [place] # (Auto) (0.2-0.9) 10^3/u L Eos # (Auto) (0.0-0.8) 10^3/u L Baso # (Auto) (0.0-0.1) 10^3/u L Nucleated RBC % (a uto) % Nucleated RBCs # /100WBC PT 15.50 H (10.5-13.3) SECO NDS INR 1.19 (0.8-1.2) D-Dimer 16.15 H (0-0.59) ug/mIFE U Specimen Type Sample Site ABG pH (7.35-7.45) ABG pCO2 (35-45) mmHg ABG pO2 (80.0-100.0) mmH g ABG HCO3 (22-26) mmol/L ABG O2 Saturation ABG Base Excess (-2.0-2.0) mmol/ L Bradly Test A-a O2 Gradient (5-10) mmHg Hematocrit (42-52) % Hgb O2 Saturation (95-100) % Carboxyhemoglobin (0.4-20.1) %THgb Methemoglobin (0.4-1.5) % Total Hemoglobin (14-18) g/dL Sodium (131-143) mmol/L Potassium (3.5-5.0) mmol/L Glucose (70-115) mg/dL Ionized Calcium (1.1-1.4) mmol/L O2 Delivery Device O2 Liters/Min % Psychological Aide ID Chloride (98-107) mmol/L Carbon Dioxide (22-29) mmol/L Anion Gap (5-19) BUN (6-20) mg/dL Creatinine (0.7-1.2) mg/dL GFR Calculation (90-130) mL/min Calculated Osmolal ity (285-295) mOsm/k g Lactic Acid 2.7 H (0.5-2.2) mmol/L Calcium (8.5-10.5) mg/dL Magnesium (1.7-2.3) mg/dL Total Bilirubin (0.15-1.2) mg/dL AST (0-40) U/L ALT (0-41) U/L Alkaline Phosphata se (40-130) IU/L Troponin T Baselin e 25 H (0-15) ng/L NT-Pro-B Natriuret Pep (0-125) pg/mL Total Protein (6.6-8.7) g/dL Albumin (3.5-5.2) g/dL Globulin (1.3-4.6) g/dL Urine Color (Yellow) Urine Appearance (CLEAR) Urine pH (5-7) Ur Specific Gravit y (1.005-1.030) Urine Protein (Negative) Urine Glucose (UA) (Normal) Urine Ketones (Negative) Urine Blood (Negative) Urine Nitrate (Negative) Urine Bilirubin (NEGATIVE) Urine Urobilinogen (Negative) mg/dL Ur Leukocyte Venita ase (Negative) Urine RBC (0-2) /hpf Urine WBC (0-5) /hpf Ur Squamous Epith Cells (0-5) Urine Bacteria (NONE) 05/03/20 Range/Units 05:53 WBC (4.0-10.0) 10^3/ uL RBC (4.1-5.3) 10^6/u L Hgb (11.7-16.6) g/dL Hct (42.0-52.0) % MCV (80-94) fL MCH (28.0-34.0) pg MCHC (30.0-36.0) g/dL RDW (12.1-15.1) % Plt Count (130-400) 10^3/c mm MPV (7.4-10.4) fL Neut % (Auto) % Lymph % (Auto) % [place] % (Auto) % Eos % (Auto) % Baso % (Auto) % Neut # (Auto) (1.8-7.7) 10^3/u L Lymph # (Auto) (0.8-4.8) 10^3/u L [place] # (Auto) (0.2-0.9) 10^3/u L Eos # (Auto) (0.0-0.8) 10^3/u L Baso # (Auto) (0.0-0.1) 10^3/u L Nucleated RBC % (a uto) % Nucleated RBCs # /100WBC PT (10.5-13.3) SECO NDS INR (0.8-1.2) D-Dimer (0-0.59) ug/mIFE U Specimen Type Sample Site ABG pH (7.35-7.45) ABG pCO2 (35-45) mmHg ABG pO2 (80.0-100.0) mmH g ABG HCO3 (22-26) mmol/L ABG O2 Saturation ABG Base Excess (-2.0-2.0) mmol/ L [place] Test A-a O2 Gradient (5-10) mmHg Hematocrit (42-52) % Hgb O2 Saturation (95-100) % Carboxyhemoglobin (0.4-20.1) %THgb Methemoglobin (0.4-1.5) % Total Hemoglobin (14-18) g/dL Sodium (131-143) mmol/L Potassium (3.5-5.0) mmol/L Glucose (70-115) mg/dL Ionized Calcium (1.1-1.4) mmol/L O2 Delivery Device O2 Liters/Min % Psychological Aide ID Chloride (98-107) mmol/L Carbon Dioxide (22-29) mmol/L Anion Gap (5-19) BUN (6-20) mg/dL Creatinine (0.7-1.2) mg/dL GFR Calculation (90-130) mL/min Calculated Osmolal ity (285-295) mOsm/k g Lactic Acid (0.5-2.2) mmol/L Calcium (8.5-10.5) mg/dL Magnesium (1.7-2.3) mg/dL Total Bilirubin (0.15-1.2) mg/dL AST (0-40) U/L ALT (0-41) U/L Alkaline Phosphata se (40-130) IU/L Troponin T Baselin e (0-15) ng/L NT-Pro-B Natriuret Pep (0-125) pg/mL Total Protein (6.6-8.7) g/dL Albumin (3.5-5.2) g/dL Globulin (1.3-4.6) g/dL Urine Color Yellow (Yellow) Urine Appearance Sl hazy (CLEAR) Urine pH 5 (5-7) Ur Specific Gravit y 1.015 (1.005-1.030) Urine Protein 1+ H (Negative) Urine Glucose (UA) Norm (Normal) Urine Ketones 1+ H (Negative) Urine Blood 2+ H (Negative) Urine Nitrate Negative (Negative) Urine Bilirubin Neg (NEGATIVE) Urine Urobilinogen Norm (Negative) mg/dL Ur Leukocyte Venita ase 1+ H (Negative) Urine RBC 5-10 H (0-2) /hpf Urine WBC 15-25 H (0-5) /hpf Ur Squamous Epith Cells 5-10 H (0-5) Urine Bacteria 1+ H (NONE) Discharge Plan Discharge Patient Disposition: Xfer Other Clinical Impression: Pulmonary embolism Qualifiers: Pulmonary embolism type: multiple subsegmental (without acute cor pulmonale) Qualified Code(s): I26.94 - Multiple subsegmental pulmonary emboli without acute cor pulmonale Condition: Fair Discharge Orders: Transfer Out of Facility (Order); Ordered 05/03/20 Ordered By: Solomon Schaefer Referrals: Zhen Sunshine, POST ACUTE CARE NURSE-C [Primary Care Provider] - Discharge Date/Time: 05/03/20 10:35 Sign Out Sign Out Data: Patient Sign Out occurred on 05/03/20 at 06:52. Patient's care was discussed, and care was transferred from to Solomon Schaefer. Coding Level of Care Code ED Fluorescent Lamp Replacer for Chg Fwd Exam Comprehensive
[2020-05-03] MEDS: ipratropium-albuterol 3 mL Neb 9 ML INHALATION (05:00)
[2020-05-03 05:13] LABS: ABG PCO2 32.5 mmHg (35-45); ABG PH Result 7.46 (7.35-7.45); Alveolar-Arterial Oxygen Gradi 35.8 mmHg (5-10); Arterial Blood Gas Hematocrit 45.1 % (42-52); Base Excess ABG 0.1 mmol/L (-2.0-2.0); Blood Gas Sample Site Brachial, left; Blood Gas Sample Type Arterial; Carboxyhemoglobin 0.7 %THgb (0.4-20.1); HCO3 ABG 23.2 mmol/L (22-26); HGB O2 Sat 94.3 % (95-100); Ionized Calcium Level - ABG 1.1 mmol/L (1.1-1.4); Methemoglobin 0.5 % (0.4-1.5); Oxygen Device NC; Oxygen Saturation ABG 95.4; Potassium Level - ABG 4.2 mmol/L (3.5-5.0); Total Hemoglobin 14.7 g/dL (14-18)
[2020-05-03 05:42] LABS: Basophils # 0.1 10^3/uL (0.0-0.1); Basophils % 1.6 %; Eosinophils # 0.1 10^3/uL (0.0-0.8); Eosinophils % 0.8 %; Hematocrit 46.1 % (42.0-52.0); Hemoglobin 14.1 g/dL (11.7-16.6); Lymphocytes # 2.1 10^3/uL (0.8-4.8); Lymphocytes % 24.1 %; Mean Corpuscular HGB Conc 30.6 g/dL (30.0-36.0); Mean Corpuscular Hemoglobin 29.7 pg (28.0-34.0); Mean Corpuscular Volume 97.3 fL (80-94); Monocytes # 0.9 10^3/uL (0.2-0.9); Monocytes % 10.5 %; Neutrophils # 5.46 10^3/uL (1.8-7.7); Neutrophils % 62.2 %; Nucleated Red Blood Cells % 0 %; Platelet Count 184 10^3/cmm (130-400); Red Blood Count 4.74 10^6/uL (4.1-5.3); Red Cell Distribution Width 14.4 % (12.1-15.1); White Blood Count 8.8 10^3/uL (4.0-10.0)
[2020-05-03 05:54] LABS: Lactic Sepsis W/Reflex 2.7 mmol/L (0.5-2.2)
[2020-05-03 06:03] LABS: INR 1.19 (0.8-1.2)
[2020-05-03 06:04] LABS: Alanine Aminotransferase 22 U/L (0-41); Alkaline Phosphatase 135 IU/L (40-130); Anion Gap 14.4 (5-19); Aspartate Amino Transferase 52 U/L (0-40); Blood Urea Nitrogen 18 mg/dL (6-20); Calcium 8.4 mg/dL (8.5-10.5); Carbon Dioxide 26 mmol/L (22-29); Chloride 99 mmol/L (98-107); Glomerular Filtration Rate 47.9 mL/min (90-130); Glucose 152 mg/dL (65-115); Magnesium 1.8 mg/dL (1.7-2.3); NT Pro B Type Natriuretic Pept 9209 pg/mL (0-125); Osmolality Calculated 279 mOsm/kg (285-295); Potassium 4.4 mmol/L (3.5-5.1); Sodium 135 mmol/L (136-145); Total Bilirubin 0.7 mg/dL (0.15-1.2)
[2020-05-03 06:06] LABS: Troponin(5th) Baseline 25 ng/L (0-15)
[2020-05-03] MEDS: FUROsemide 10 mg/mL SDV 10mL 60 MG IVP (06:22)
--- NOTE | 2020-05-03 06:34 | CTR_ITS ---
PROCEDURE INFORMATION: Exam: CT Angiography Chest With Contrast Exam date and time: 05/03/2020 6:51 AM Age: 59 years old Clinical indication: Shortness of breath; Prior surgery; Surgery type: Percutaneous drain. Hernia repair; Patient HX: PT had drain placement procedure two weeks ago. C/O severe SOB for the past few days. ; Additional info: Chest pain, dyspnea, recent surgery TECHNIQUE: Imaging protocol: Computed tomographic angiography of the chest with intravenous contrast. 3D rendering: MIP and/or 3D reconstructed images were created by the technologist. Radiation optimization: All CT scans at this facility use at least one of these dose optimization techniques: automated exposure control; mA and/or kV adjustment per patient size (includes targeted exams where dose is matched to clinical indication); or iterative reconstruction. Contrast material: VISI 320; Contrast volume: 95 ml; Contrast route: INTRAVENOUS (IV); COMPARISON: CR XR chest 1V portable [id number] 05/03/2020 5:07 AM RADIATION DOSE METRICS: Total DLP (mGy-cm): 758.29 FINDINGS: Pulmonary arteries: There is massive bilateral acute pulmonary embolism with ?saddle emboli? at the bifurcations of both the right and left pulmonary arteries. The lobar and segmental branches of both the left and right pulmonary circulations are significantly affected by emboli. Great vessels off aortic arch: No major aortic branch vessel significant stenosis or occlusion. Aorta: No thoracic aortic aneurysm or dissection. Lungs: No pneumonia or pulmonary edema. Prior pulmonary granulomatous disease. Pleural space: No pleural effusion or pneumothorax. Heart: The heart is not enlarged. No pericardial effusion. The RV/LV ratio is 2.3. Left ventricular wall hypertrophy is contributing to narrowing of the left ventricular lumen, but it is still felt that there is right ventricular strain with dilatation of the right ventricular cavity and straightening of the interventricular septum. Lymph nodes: Calcified left hilar lymph nodes from prior granulomatous disease. Bones/joints: No acute osseous abnormality. Soft tissues: No acute soft tissue abnormality. CT/CT angio chest PE protcl [id number] IMPRESSION: Massive bilateral acute pulmonary embolism with signs of right heart strain. Radiation Dose CTDIVOL = (mGy): DLP = 758.29 (mGy-cm)
[2020-05-03] MEDS: ipratropium 0.5 mg/2.5 mL Neb 1.5 MG INHALATION (06:35)
[2020-05-03] MEDS: levalbuterol 1.25 mg/3 mL Neb 3.75 MG INHALATION (06:35)
[2020-05-03 07:08] LABS: Urine Color Yellow (Yellow)
[2020-05-03 07:09] LABS: Bilirubin Urine Neg (NEGATIVE); Blood Urine 2+ (Negative); Glucose Urine UA Norm (Normal); Ketones Urine 1+ (Negative); Leukocyte Esterase Urine 1+ (Negative); Nitrate Urine Negative (Negative); Protein Urine 1+ (Negative); Specific Gravity, Urine 1.015 (1.005-1.030); Urine Appearance SL Hazy (CLEAR); Urobilinogen Urine Norm (Negative); pH Urine 5 (5-7)
[2020-05-03 07:10] LABS: D Dimer 16.15 ug/mIFEU (0-0.59)
[2020-05-03 07:11] LABS: Add Urine Culture? Yes; Bacteria Urine 1+; WBC Urine 15-25 /hpf (0-5)
[2020-05-03 07:20] LABS: Reflex Lactate Order REFLEX LACTIC ORDERD
[2020-05-03] MEDS: iodixanol 320 mg/mL 100mL Btl IV (07:28)
[2020-05-03] MEDS: heparin 5,000 unit/mL INJ 1 mL 5000 UNIT SUBCUT (09:06)
[2020-05-03] MEDS: heparin drip 25,000 UNIT/500 ML PREMIX 37.6 UNIT IV (09:07)
[2020-05-03] MEDS: morphine 4 mg/mL SDV 1 mL IVP (09:56)
== END 2020-05-03 10:35 | disposition other institution (70) ==
PROVIDERS: Emergency Medicine; Emergency Provider Family Medicine; PCP Nurse Practitioner
DX: I26.94 Multiple subsegmental thrombotic pulmonary emboli without acute cor pulmonale (principal); E11.9 Type 2 diabetes mellitus without complications
CPT/HCPCS: 12345; 36600; 71045; 71275; 80051; 80053; 81001; 82810; 83605; 83735; 83880; 83986; 84484; 85025; 85378; 85610; 87040; 87086; 93005; 94640; 94660; 96365; 96366; 96372; 96375; 99284; 99285; J1644; J1940; J2270; J7614; J7644; Q9967

== ENCOUNTER 2020-06-19 13:25 | Outpatient (CLI) | payer OTHER, SELFPAY ==
--- NOTE | 2020-06-19 13:45 | XRR_ITS ---
PROCEDURE INFORMATION: Exam: XR Abdomen, 1 View Exam date and time: 06/19/2020 1:44 PM Age: 59 years old Clinical indication: Condition or disease; Kidney or ureter condition; Calculus (stone) in kidney; Prior surgery; Patient HX: Hernia, stent TECHNIQUE: Imaging protocol: XR of the abdomen. Views: Frontal supine view of the abdomen. 1 View. COMPARISON: CT abdomen pelvis w con* [id number] 05/11/2020 12:55 PM FINDINGS: Gastrointestinal tract: Normal. No bowel dilation. Organs: 3 caliceal stones seen in the lower pole collecting system of the right kidney the largest of these stones measures 14 mm x 16 mm. There is a caliceal stone in the central collecting system of the left kidney measuring 5.7 mm. Vasculature: There is a double-J ureteral stent in place on the right side in good position. Bones/joints: Unremarkable. XR/XR KUB [id number] IMPRESSION: 1. No acute findings. 2. Ureteral stent is present on the right side. 3. Multiple caliceal stones lower pole collecting system right kidney 4. Solitary caliceal stone left kidney.
== END 2020-06-19 13:26 | disposition home or self-care (01) ==
LOC: RAD 13:30
PROVIDERS: PCP Physician Assistant; Visit Provider Urology
DX: N20.1 Calculus of ureter (principal); Z96.0 Presence of urogenital implants; N20.0 Calculus of kidney
CPT/HCPCS: 74018; 81001

== ENCOUNTER → 2020-07-10 09:28 | Outpatient (BNVA) | payer OTHER, SELFPAY | PROVIDERS: PCP Physician Assistant; Visit Provider Urology | DX: Z20.828 Contact with and (suspected) exposure to other viral communicable diseases (principal); N20.0 Calculus of kidney | CPT/HCPCS: 81001; 87635 ==

== ENCOUNTER → 2020-07-16 13:28 | Outpatient (BNVA) | payer OTHER, SELFPAY | PROVIDERS: PCP Physician Assistant; Visit Provider Urology | DX: Z20.828 Contact with and (suspected) exposure to other viral communicable diseases (principal) | CPT/HCPCS: 87635 ==

== ENCOUNTER 2020-07-20 11:29 | Day surgery (SDC) | payer OTHER, SELFPAY ==
[2020-07-19 11:04] VITALS: BMI 42.5
[2020-07-20] VITALS (11 sets, daily range): BP systolic 138–164; BP diastolic 95–106; PULSE 76–87; RESP 12–22; TEMP 36.1–36.9; O2SAT 91–97
--- NOTE | 2020-07-20 11:40 | SC_ITS ---
WS: [id number] INTRAOPERATIVE TECHNIQUE: 1 Spot fluoroscopic images for intraoperative purposes. FLUOROSCOPY TIME: 118 seconds CLINICAL INFORMATION: Right ureteroscopy COMPARISON: None. FINDINGS: Intraoperative fluoroscopy used for right double-J ureteral stent. SC/C-arm FL for Urology IMPRESSION: Images obtained for intraoperative purposes.
[2020-07-20 12:09] LABS: Glucose Point of Care 109 mg/dL (70-110)
[2020-07-20] MEDS: sodium chloride 0.9% 1,000 ML 30 ML IV (12:12)
--- NOTE | 2020-07-20 12:52 | P.ANESASSM_ITS ---
Pre-Anesthetic Assessment Pre-Anesthetic Assessment: Height/Weight: Height 1.93 m Weight 158.757 kg Temp Pulse Resp BP Pulse Ox 98.5 F 87 18 164/98 96 07/20/20 12:05 07/20/20 12:05 07/20/20 12:05 07/20/20 12:05 07/20/20 12:05 Preop Diagnosis: Multiple right renal calculi Proposed Procedure: Operation Date: 07/20/20 13:00 Proposed Procedures p Cystoscopy 03196 00098 89391 N20.0(Not Applicable) - Artur Bradford MD s Retrograde Pyelogram(Not Applicable) - MD john Taveras Ureteroscopy(Not Applicable) - MD john Taveras Laser Lithotripsy(Not Applicable) - Artur Bradford MD s Ureteral Stent Exchange(Not Applicable) - Artur Bradford MD Familial anesthetic complications: none Was Beta Grisel taken within 24 hours: N/A Last intake: Intake Last Liquid Date 07/20/20 Last Liquid Time 07:00 Last Solid Date 07/19/20 Last Solid Time 18:30 Social: Social History: No alcohol and No tobacco Exam: Pre-Anes Outpt Exam: alert, oriented x 3, clear to auscultation bilaterally and regular rate & rhythm Airway: Cervical ROM: WNL MP: 4 Dentition: Full Pulmonary: Comments: PE after previous surgery where manny was placed in kidney - holding anticoagulation CV/HEM: CV/HEM: HTN Metabolic: Metabolic: DM and Morbid obesity Anesthetic Plan: ASA status: 2 Anesthesia: General Risk of > 500 ml blood loss (7ml/kg in children): No Meds/Allergies Current Medications: Current Medications Generic Name Dose Route Start Last Admin Trade Name Freq PRN Reason Stop Dose Admin Sodium Chloride 1,000 mls @ 30 ml s/hr 07/20/20 12:00 07/20/20 12:12 Sodium Chloride 0.9% IV 07/21/20 11:59 30 mls/hr .Q24H FER Administration PFSH Anesthesia PFSH: Medical History C. difficile colitis Controlled diabetes mellitus with hyperglycemia, without long-term current use of insulin Diverticulosis Enterococcus UTI Glaucoma H/O Clostridium difficile infection H/O nephrolithotomy with removal of calculi History of colon polyps History of [place] spotted fever History of UTI Hypertriglyceridemia Internal hemorrhoids Surgical History H/O circumcision H/O inguinal hernia repair H/O lithotripsy H/O nephrostomy Status post colonoscopy with polypectomy Family History Mother Hypertension Father , in his 80's No problems noted. Other Cancer Diabetes Denies family history of Anesthesia complication Bleeding disorder Social History Smoking and tobacco status: never smoked Second hand smoke exposure: No Smoking risk assessment/counseling performed?: No Alcohol intake: never Desire information about alcohol rehabilitation?: No Counseling given: No Desire information about substance/drug rehabilitation?: No Counseling given: No Adopted: No Caregiver/support person: No Lives independently: Yes Household members: spouse Housing: House Marital status: service: No Current occupational status: employed History of recent travel: No Current gender identity: Male Data Anesthesia Other Labs: Laboratory Results - last 48 hr 07/20/20 12:01 POC Glucose 109 Cardiac Studies: No Data to Display
[2020-07-20] MEDS: levofloxacin-dextrose 5 % 500 MG/100 ML PREMIX 100 MG IV (12:55)
--- NOTE | 2020-07-20 13:02 | W.PM.OPSUD ---
Surgery/Procedure H&P Update DATE OF PROCEDURE: July 20, 2020 DATE H&P PERFORMED: 07/10/20 H&P UPDATE INFORMATION: I have reviewed H&P completed within last 30 days, I have examined patient prior to procedure, Changes to prior documentation as noted here and H&P is in [facility] EMR on date indicated CHANGES TO PREVIOUS DOCUMENTATION: Postpone surgery x1 week due to family illness. No other change. PREOP DIAGNOSIS: Multiple right renal calculi PLANNED PROCEDURE: Operation Date: 07/20/20 13:00 Proposed Procedures p Cystoscopy 54561 [id number] 89663 N20.0(Not Applicable) - Artur Bradford MD s Retrograde Pyelogram(Not Applicable) - MD john Taveras Ureteroscopy(Not Applicable) - Artur Bradford MD s Laser Lithotripsy(Not Applicable) - Artur Bradford MD s Ureteral Stent Exchange(Not Applicable) - Artur Bradford MD
--- NOTE | 2020-07-20 14:03 | SUR.OPER ---
Pt's rian updated on surgery progress and pt status via her cell phone.
[2020-07-20] MEDS: iohexol 300 mg/mL 50 mL Btl XX (14:50)
--- NOTE | 2020-07-20 15:10 | P.OP_ITS ---
Operative Report Date of procedure: July 20, 2020 Pre-op Diagnosis: Multiple right renal calculi Post-op diagnosis: same Procedure Done: 1. Right ureteral stent removal. 2. Cystoscopy, ureterorenoscopy with laser lithotripsy and stent placement 3. Right retrograde ureteropyelogram Implants: 1. Indwelling Lane catheter 2. Right ureteral stent (7 Citizen [place] by 30 cm double-pigtail without string) Pathology: none sent Surgeon: Sanchez Anesthesia: General Estimated blood loss: Less than 10 cc Urine output: Not measured Complications: None Findings: 1. Mid urethral stricture dilated with scope; Lane catheter left in place for healing 2. Stones in the expected position in the right lower pole calyx. Well fragmented with combination 273 and 365 ?m homing laser fibers. 3. 7 [place] by 30 cm double-pigtail stent left indwelling at the completion of the procedure Condition: stable Disposition: PACU Brief History: Mr. Ortiz is a delightful 59-year-old white male with a complex urologic history. Please see H&P for full details. The previously identified stones larger in the 2 moderate sized stones were located in the right lower pole. Because of his previous obstruction and infection leading to renal abscess it was decided to treat the stones. It was decided to pursue endoscopy as opposed to ESWL so that he could be maintained to some degree on warfarin to reduce his risk of complications related to recent pulmonary embolism postoperatively. He had recovered very well from that event. Procedure: After routine preoperative evaluation examination and obtaining of informed consent he was taken to the operating suite on July 20, 2020 where general anesthesia was administered without difficulty after appropriate timeout was performed, SCDs confirmed to be functioning, preoperative antibiotics administered, beta-ash protocol confirmed. Prepped and draped in usual sterile fashion in dorsolithotomy position pain careful attention to avoiding pressure points. 21 Citizen [place] cystoscope with 30 degree lens was introduced to the urethral meatus and advanced into the mid urethra where a fairly tight stricture but appeared to be quite flimsy was encountered. The scope was manipulated through the stricture and then into the bladder with videoscopy. The bladder was systematically examined. The stent was in the expected position and without significant encrustation. Flexible tip guidewire was then advanced up the RIGHT ureter next to the stent into the upper pole calyx. Grasping forceps were then used to secure the stent and it was removed without difficulty with easy uncurling of the proximal curl. A second guidewire was then passed next to the first. One wire was used as a safety wire and the other is the working wire. A 38 cm ureteral access sheath was advanced over the working wire but was not adequate in length and was exchanged with a 54 cm ureteral access sheath and allowed position to be just inside the UPJ. The inner sheath and guidewire was removed and a flexible ureteroscope was advanced through the sheath into the renal pelvis. The stones were located as expected in 1 of the lower pole calyces. The larger of the stone was the first stone encountered in the calyx and it was fragmented with a 273 ?m homing laser fiber. Eventually after that laser was fully utilized a 365 ?m holmium laser fiber was utilized to complete fragmentation of the larger stone and then complete fragmentation of the 2 smaller/moderate sized stones. By the completion of the procedure which was extended due to the large bulk of stones in the small laser fibers no significant fragments were identified with careful inspection and fluoroscopy revealed only what appeared to be accumulation of sand. There is a large amount of small particulate sand-like matter in the renal pelvis and even along into the proximal ureter. Some head flushed through the sheath. The ureteral access sheath was backed onto the hub of the scope and the ureter was inspected as the scope was removed. The ureter was intact and no concerning findings were identified. The cystoscope was then backloaded over the guidewire and a 7 Citizen [place] by 30 cm double-pigtail stent without string was passed over the guidewire through the cystoscope into appropriate position as confirmed via fluoroscopy and cystoscopy. The bladder was carefully inspected and no stones were seen. Bladder was drained with a [address] [place] [address] catheter to help facilitate healing of the urethral stricture dilation area.
--- NOTE | 2020-07-20 16:50 | ANE.PACU2 ---
Inpatient post-anesthesia follow up: Airway intact: Yes Vital signs: Temperature 98.2 F Pulse Rate 78 Respiratory Rate 18 Blood Pressure 143/98 Pulse Oximetry 95 Oxygen Delivery Me thod Room Air Oxygen Flow Rate Fraction of Inspir ed Oxygen Hydration adequate: Yes Nausea and vomiting: No Pain level: 2 Mental status: Baseline
== END 2020-07-20 16:53 | disposition home or self-care (01) ==
PROVIDERS: PCP Physician Assistant; Visit Provider Urology
PROC: 0TJB8ZZ Inspection of Bladder, Via Natural or Artificial Opening Endoscopic (ICD-10-PCS; CPT 52000; principal; 2020-07-20 13:00)
PROC: (CPT 74420; 2020-07-20 13:00)
PROC: 0TJ98ZZ Inspection of Ureter, Via Natural or Artificial Opening Endoscopic (ICD-10-PCS; CPT 52351; 2020-07-20 13:00)
PROC: (CPT 52356; 2020-07-20 13:00)
PROC: (CPT 52356; 2020-07-20 13:00)
DX: N20.0 Calculus of kidney (principal); I10 Essential (primary) hypertension; E11.9 Type 2 diabetes mellitus without complications; E66.01 Morbid (severe) obesity due to excess calories; Z68.41 Body mass index [BMI] 40.0-44.9, adult; Z79.01 Long term (current) use of anticoagulants; Z79.52 Long term (current) use of systemic steroids
CPT/HCPCS: 52356; 12345; 36416; 76000; 82962; C2625; J1956; J2405; J2704; J3010; J3490; J7030; Q9967

== ENCOUNTER 2020-07-27 08:42 | Outpatient (CLI) | payer OTHER, SELFPAY ==
--- NOTE | 2020-07-27 09:15 | XR_ITS ---
WS: [id number] KUB, 07/27/2020 Clinical Data: RENAL STONE Comparison: KUB, 06/19/2020. Findings: The right lower pole renal calcifications have fragmented and are much smaller. There is a solitary l eft renal calcification unchanged. The right ureteral stent remains in the same position. XR/XR KUB [id number] Impression: 1. Inferior right renal calcifications are much smaller in measurement may be f ragmented. 2. No change in 0.5 cm central left renal calcification. 3. No change in right ureteral catheter.
== END 2020-07-27 08:43 | disposition home or self-care (01) ==
LOC: RAD 08:47
PROVIDERS: PCP Physician Assistant; Visit Provider Urology
DX: N20.0 Calculus of kidney (principal); Z96.0 Presence of urogenital implants
CPT/HCPCS: 74018; 81001

== ENCOUNTER 2020-08-03 07:49 | Outpatient (CLI) | payer OTHER, SELFPAY ==
--- NOTE | 2020-08-03 14:30 | XR_ITS ---
WS: [id number] KUB, 08/03/2020 Clinical Data: RENAL STONE Comparison: KUB, 07/27/2020. Findings: The right lower pole renal calcifications are the same. There are small calcifications overlying the midportion left kidney. The right ureteral stent remains in good position. XR/XR KUB [id number] Impression: 1. No change in right ureteral stent. 2. No change in bilateral renal calcifications.
== END 2020-08-03 07:50 | disposition home or self-care (01) ==
LOC: RAD 07:51
PROVIDERS: PCP Physician Assistant; Visit Provider Urology
DX: N20.0 Calculus of kidney (principal); Z96.0 Presence of urogenital implants
CPT/HCPCS: 74018; 81001

== ENCOUNTER 2020-10-03 08:07 | Outpatient (CLI) | payer OTHER, SELFPAY ==
--- NOTE | 2020-10-03 07:15 | XR_ITS ---
WS: [id number] KUB, 10/03/2020 Clinical Data: RENAL STONES Comparison: KUB, 08/03/2020. Findings: There are calcifications overlying the left kidney but the right kidney is obscured by fecal material and air in the colon. There is probably a calcification overlying the inferior pole of the right kid grisel. The right ureteral stent has been removed. XR/XR KUB [id number] Impression: 1. Probable bilateral renal calcifications unchanged. 2. Removal of right ureteral stent.
== END 2020-10-03 08:08 | disposition home or self-care (01) ==
LOC: RAD 08:10
PROVIDERS: PCP Physician Assistant; Visit Provider Urology
DX: N20.0 Calculus of kidney (principal)
CPT/HCPCS: 74018; 81003

== ENCOUNTER 2021-02-05 08:14 | Outpatient (CLI) | payer OTHER, SELFPAY ==
--- NOTE | 2021-02-05 08:30 | XRR_ITS ---
PROCEDURE INFORMATION: Exam: XR Abdomen Exam date and time: 02/05/2021 8:20 AM Age: 60 years old Clinical indication: Condition or disease; Kidney or ureter condition; Calculus (stone) in kidney; Prior surgery; Surgery type: Kidney stone removal, hernia; Additional info: N20.0 - calculus of kidney TECHNIQUE: Imaging protocol: XR of the abdomen. Views: Frontal supine view of the abdomen. 1 View. COMPARISON: CR XR KUB [id number] 10/03/2020 8:23 AM FINDINGS: Gastrointestinal tract: Normal. No bowel dilation. Organs: There is a stable 5 mm calcification projecting on the left kidney. No calcifications are seen in the projection of the right kidney or ureters. Bones/joints: Degenerative sclerosis is seen in the lower lumbar facet joints. XR/XR KUB [id number] IMPRESSION: No significant change in the 5 mm left kidney calcification.
== END 2021-02-05 08:15 | disposition home or self-care (01) ==
PROVIDERS: PCP Physician Assistant; Visit Provider Urology
DX: N20.0 Calculus of kidney (principal)
CPT/HCPCS: 74018; 81003

== ENCOUNTER 2021-03-29 07:05 | Outpatient (CLI) | payer OTHER, SELFPAY ==
--- NOTE | 2021-03-29 07:16 | XR_ITS ---
WS: [id number] KUB, AP view, 03/29/2021 Clinical Data: HEMATURIA Comparison: KUB, 02/05/2021. Findings: No abnormal intraabdominal masses are seen. There is no dilatated small bowel or evidence of obstruct ion. The left renal calculus has not changed. XR/XR KUB [id number] Impression: No change in left renal calculus.
== END 2021-03-29 07:06 | disposition home or self-care (01) ==
LOC: LAB 07:10
PROVIDERS: PCP Physician Assistant; Visit Provider Urology
DX: R31.9 Hematuria, unspecified (principal)
CPT/HCPCS: 74018; 81003; 87077; 87086; 87184

== ENCOUNTER 2021-04-09 06:57 | Outpatient (CLI) | payer OTHER, SELFPAY ==
--- NOTE | 2021-04-09 07:15 | XRR_ITS ---
PROCEDURE INFORMATION: Exam: XR Abdomen Exam date and time: 04/09/2021 7:15 AM Age: 60 years old Clinical indication: Condition or disease; Kidney or ureter condition; Calculus (stone) in kidney; Prior surgery; Surgery type: Hernia; Additional info: Renal calculus TECHNIQUE: Imaging protocol: XR of the abdomen. Views: Frontal supine view of the abdomen. 1 View. COMPARISON: CR XR KUB [id number] 03/29/2021 7:23 AM FINDINGS: Gastrointestinal tract: No dilated gas-filled loops of bowel. Organs: A 5 mm calcification projects over the left kidney compatible with previously described left nephrolithiasis. Bones/joints: Multilevel degenerative changes in the lower lumbar spine. XR/XR KUB [id number] IMPRESSION: Left nephrolithiasis.
== END 2021-04-09 06:58 | disposition home or self-care (01) ==
LOC: RAD 07:00
PROVIDERS: PCP Physician Assistant; Visit Provider Urology
DX: N20.0 Calculus of kidney (principal)
CPT/HCPCS: 74018; 81003

== ENCOUNTER 2021-06-03 09:20 | Outpatient (CLI) | payer OTHER, SELFPAY ==
--- NOTE | 2021-06-03 09:30 | XRR_ITS ---
PROCEDURE INFORMATION: Exam: XR Abdomen Exam date and time: 06/03/2021 9:30 AM Age: 60 years old Clinical indication: Condition or disease; Kidney or ureter condition; Calculus (stone) in kidney; Additional info: Renal calculus, left TECHNIQUE: Imaging protocol: XR of the abdomen. Views: Frontal supine view of the abdomen. 1 View. COMPARISON: CR XR KUB [id number] 04/09/2021 7:13 AM FINDINGS: Gastrointestinal tract: Normal. No bowel dilation. Organs: Nephrolithiasis measuring 5 mm in the left kidney, not significantly changed from prior exam. No additional stones identified. Bones/joints: DJD of the lower lumbar spine. XR/XR KUB [id number] IMPRESSION: 5 mm stone in the left kidney, not significantly changed from prior exam.
== END 2021-06-03 09:21 | disposition home or self-care (01) ==
PROVIDERS: PCP Physician Assistant; Visit Provider Urology
DX: N20.0 Calculus of kidney (principal)
CPT/HCPCS: 74018; 81003

== ENCOUNTER → 2021-10-07 08:45 | Outpatient (BNVA) | payer OTHER, SELFPAY | PROVIDERS: PCP Physician Assistant; Visit Provider Urology | DX: N39.0 Urinary tract infection, site not specified (principal) | CPT/HCPCS: 81003 ==

== ENCOUNTER 2022-04-08 09:17 | Outpatient (CLI) | payer OTHER, SELFPAY ==
--- NOTE | 2022-04-08 09:30 | XR_ITS ---
WS: [id number] ABDOMEN: SUPINE FILM HISTORY: UROLITHIASIS COMPARISON: 06/03/2021 Normal bowel gas pattern. Advanced facet joint arthritis at L5-S1. Bilateral mild SI joint arthritis. Right kidney: No renal or ureteral stone identified. Left kidney: 6 mm calcification projects over the mid LEFT kidney as on the prior study. No new calci fications. XR/XR KUB [id number] IMPRESSION: Stable 6 mm LEFT renal calcification.
== END 2022-04-08 09:18 | disposition home or self-care (01) ==
PROVIDERS: PCP Physician Assistant; Visit Provider Urology
DX: N20.0 Calculus of kidney (principal)
CPT/HCPCS: 74018; 81003

== ENCOUNTER 2023-04-08 06:49 | Outpatient (CLI) | payer OTHER, SELFPAY ==
--- NOTE | 2023-04-08 07:21 | XR_ITS ---
WS: [id number] EXAMINATION: XR KUB [id number] REASON FOR EXAM: STONES COMPARISON: 2121. ORDER DATE: 04/08/2023 7:25 AM FINDINGS: Normal bowel gas pattern. Advanced facet joint arthritis at L5-S1. Bilateral mild SI joint arthritis. Right kidney: No renal or ureteral stone identified. Left kidney: 6 mm calcification projects over the mid LEFT kidney as on the prior study. No new calcifications. XR/XR KUB [id number] IMPRESSION: Stable 6 mm LEFT renal calcification.
== END 2023-04-08 06:50 | disposition home or self-care (01) ==
LOC: RAD 06:51
PROVIDERS: PCP Physician Assistant; Visit Provider Urology
DX: N20.0 Calculus of kidney (principal)
CPT/HCPCS: 74018; 81003